=== PATIENT | male | born 1970 | race African-American/Black ===

== ENCOUNTER 2017-05-27 14:47 | Emergency (ER) | payer BC, OTHER ==
[~2017-05-27] VITALS: Ht 188 cm; Wt 113.5 kg
[~2017-05-27 14:47] MED LIST: AMLO10 PO; BISO10TA2 PO; CLON0.1T PO
[2017-05-27 14:49] VITALS: BP 157/99; PULSE 96; RESP 15; TEMP 98.2; O2SAT 98
--- NOTE | 2017-05-27 15:01 | PD ---
Physical Exam Date Seen by Provider: May 27, 2017 Time Seen by Provider: 15:00 Narrative 47 yo male here for evaluation of swelling to the legs for about a year. Went to see PCP. Told to get US. Has not been able to schedule it. Pain to both legs. 04/11. No other medical issues. History of "irregular HR" but no blood thinners. Vitals stable in triage. Awaiting bed placement. Data Data Last Documented VS Vital Signs Date Time Temp Pulse Resp B/P (MAP) Pulse Ox O2 Delivery O2 Flow Rate FiO2 05/27/17 14:49 98.2 96 15 157/99 (118) 98 MDM Medical Record Reviewed: Yes Supervised Visit with CALVIN: No Jose Bryan May 27, 2017 15:01
--- NOTE | 2017-05-27 15:59 | RADRPT ---
EXAM DATE/TIME: 05/27/2017 15:29 [facility] COMPARISON: No previous studies available for comparison. INDICATIONS : Bilateral leg swelling. MEDICAL HISTORY : Hypertension. Migraines. Diabetes. GI bleed. Bronchitis. Irregular heart beat. SURGICAL HISTORY : Hernia repair. Right leg fracture repair. ENCOUNTER: Initial ACUITY: >1 year PAIN SCORE: 3/10 LOCATION: Bilateral legs. TECHNIQUE: Venous ultrasound of the left and right leg was performed from the inguinal ligament to the proximal calf. Real-time, color Doppler and spectral tracing, compression and augmentation techniques were us ed. FINDINGS: RIGHT LEG: There is normal compressibility of the deep venous system from the inguinal region to the proximal ca lf. No echogenic clot is seen in the lumen of the common femoral, femoral, popliteal, and posterior tibial veins. There is a normal response of the venous system to proximal and distal augmentation an d respiration. LEFT LEG: There is normal compressibility of the deep venous system from the inguinal region to the proximal ca lf. No echogenic clot is seen in the lumen of the common femoral, femoral, popliteal, and posterior tibial veins. There is a normal response of the venous system to proximal and distal augmentation an d respiration. CONCLUSION: Normal examination. Jens Ernst MD on May 27, 2017 at 15:57 Board Certified Radiologist. This report was verified electronically.
--- NOTE | 2017-05-27 17:42 | PD ---
HPI . leg pain for 1 year Chief Complaint: Pain: Acute or Chronic Time Seen by Provider: 17:42 Travel History International Travel<30 days: No Contact w/Intl Traveler<30days: No Traveled to known affect area: No History of Present Illness HPI 47-year-old male here with complaints of leg pain for over a year. Patient says that he saw his primary care provider was told that he needed a sonogram, however never had that completed. He is here in the emergency department requesting sonogram. Patient was seen in triage and ultrasound was ordered. Results are negative for DVT. He denies any recent injury. He is pretty comfortable right now, but tells me that the pain can intensify. PFSH Past Medical History Hx Anticoagulant Therapy: No Cardiovascular Problems: Yes (IRREGULAR HEART BEAT) Chemotherapy: No Cerebrovascular Accident: No Diabetes: Yes (BORDERLINE ) Diminished Hearing: No Gastrointestinal Disorders: Yes (GI BLEED, RECTAL BLEED) Genitourinary: No Headaches: Yes Hypertension: Yes Musculoskeletal: No Neurologic: Yes Respiratory: No Migraines: Yes Past Surgical History Hysterectomy: No Other Surgery: Yes (hernia repair) Social History Alcohol Use: No (occ) Tobacco Use: Yes (/ ppd) Substance Use: No Allergies-Medications (Allergen,Severity, Reaction): Coded Allergies: lisinopril (Unverified Allergy, Severe, Anaphylaxis, 05/27/17) Reported Meds & Prescriptions Reported Meds & Active Scripts Active Reported Bisoprolol-Hydrochlorothiazide 10-6.25 Mg Tab 1 Tab PO DAILY Clonidine (Clonidine HCl) 0.1 Mg Tab 0.1 Mg PO BID Norvasc (Amlodipine Besylate) 10 Mg Tab 10 Mg PO DAILY Review of Systems General / Constitutional: No: Fever Eyes: No: Visual changes HENT: No: Headaches Cardiovascular: No: Chest Pain or Discomfort Respiratory: No: Shortness of Breath Gastrointestinal: No: Abdominal Pain Genitourinary: No: Dysuria Musculoskeletal: Positive: Pain (leg pain ) Skin: No Rash Neurologic: No: Weakness Psychiatric: No: Depression Endocrine: No: Polydipsia Hematologic/Lymphatic: No: Easy Bruising Physical Exam Narrative GENERAL: AAO x 3, no acute distress, Well-nourished, well-developed patient. SKIN: Warm and dry. No visible rashes or bruising. HEAD: Normocephalic and atraumatic. EYES: No scleral icterus. No injection or drainage. ENT: No nasal drainage noted. Mucous membranes pink. Airway patent. NECK: Supple, trachea midline. No JVD. CARDIOVASCULAR: Regular rate and rhythm without murmurs, gallops, or rubs. RESPIRATORY: Breath sounds equal bilaterally. No accessory muscle use. No rhonchi or rales. GASTROINTESTINAL: Abdomen soft, non-tender, nondistended. EXTREMITIES: No cyanosis or edema. Full range of motion bilateral lower extremities. Pedal pulses are intact. BACK: No obvious deformity. 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 Data Data Last Documented VS Vital Signs Date Time Temp Pulse Resp B/P (MAP) Pulse Ox O2 Delivery O2 Flow Rate FiO2 05/27/17 14:49 98.2 96 15 157/99 (118) 98 Orders Orders Us Leg Venous Doppler Bilat (05/27/17 ) [facility] Medical Decision Making Medical Screen Exam Complete: Yes Emergency Medical Condition: Yes Medical Record Reviewed: Yes Differential Diagnosis OA, RA, DVT, less likely fracture Narrative Course 47 yr old male here with chronic leg pain. US ordered in triage. Last Impressions Lower Extremity Ultrasound 05/27/17 0000 Signed Impressions: Service Date/Time: Saturday, May 27, 2017 15:29 - CONCLUSION: Normal examination. Jens Ernst MD Results are normal. I do not believe xrays would be helpful as I do not suspect an acute bony abnormality. I explained to patient there is no evidence of DVT. I think he needs to f/u with his PCP for further workup and testing. He could have some issues in his back causing his pain. He denies any bowel or bladder dysfunction and has no saddle anesthesia. I have discussed the results with the patient. Patient verbalized understanding of instructions, questions were answered, and thanked me for their care. I advised them if their condition worsens, please return to the nearest emergency room for further care. Diagnosis Primary Impression: Leg pain Qualified Codes: M79.604 - Pain in right leg; M79.605 - Pain in left leg Patient Instructions: General Instructions Additional Instructions: Try Tylenol and Motrin as needed for pain. Follow up with your primary care provider for further workup and recommendations. Disposition: 01 DISCHARGE HOME Condition: Stable Yue Bey May 27, 2017 17:42
[2017-05-27 18:27] VITALS: BP 171/82
[2017-06-06] MEDS ORDERED: VARE.5 PO (11:24)
[2017-06-06] MEDS ORDERED: IPRASOL INH (11:24)
[2017-06-06] MEDS ORDERED: VENTAER INH (11:24)
== END 2017-05-27 18:31 | disposition home or self-care (01) ==
LOC: NEPD 14:47
DX: M79.604 Pain in right leg (principal); M79.605 Pain in left leg; F17.200 Nicotine dependence, unspecified, uncomplicated
CPT/HCPCS: 93970; 99284

== ENCOUNTER 2017-06-03 13:44 | Emergency (ER) | payer OTHER ==
[2017-06-03 13:47] VITALS: BP 152/101; PULSE 88; RESP 15; TEMP 98.3; O2SAT 92
--- NOTE | 2017-06-03 14:09 | PD ---
Physical Exam Time Seen by Provider: 14:07 Narrative 47 year old male with history of COPD presents to the ED for evaluation of a pruritic rash on his face. Pt used dye to darken his hair and noticed itching last night. He woke up the rash today. Pt denies any sensation of oral swelling or difficulty breathing. Pt does have history of COPD and has chronic shortness of breath. Data Data Last Documented VS Vital Signs Date Time Temp Pulse Resp B/P (MAP) Pulse Ox O2 Delivery O2 Flow Rate FiO2 06/03/17 15:30 06/03/17 13:47 98.3 88 15 92 MDM Medical Record Reviewed: Yes Supervised Visit with CALVIN: No Scripts Prednisone (Prednisone) 20 Mg Tab 20 MG PO BID for 5 Days, #10 TAB 0 Refills Prov: Sydney Ortiz DO 06/03/17 Condition: Stable Kathrine Gonzales Jun 03, 2017 14:09
[2017-06-03] MEDS ORDERED: PRED20 PO (15:07)
--- NOTE | 2017-06-03 15:12 | PD ---
HPI Chief Complaint: Allergic/Adverse Reaction Time Seen by Provider: 15:06 Travel History International Travel<30 days: No Contact w/Intl Traveler<30days: No Traveled to known affect area: No History of Present Illness HPI 47-year-old male presents for evaluation of facial itching, irritation. He reports that 2 days ago he used dye on his stephenson. He reports that yesterday he developed irritation and itching and redness at the site of the stephenson. Symptoms are mild, aggravated by using dye. No alleviating factors. Has not tried using any [id number] medications to help with his pruritus. He has no other complaints at this time. PFSH Past Medical History Hx Anticoagulant Therapy: No Cardiovascular Problems: Yes (IRREGULAR HEART BEAT) Chemotherapy: No Cerebrovascular Accident: No Diabetes: Yes (BORDERLINE ) Diminished Hearing: No Gastrointestinal Disorders: Yes (GI BLEED, RECTAL BLEED) Genitourinary: No Headaches: Yes Hypertension: Yes Musculoskeletal: No Neurologic: Yes Respiratory: No Migraines: Yes Past Surgical History Hysterectomy: No Other Surgery: Yes (hernia repair) Social History Alcohol Use: Yes Tobacco Use: Yes Substance Use: No Allergies-Medications (Allergen,Severity, Reaction): Coded Allergies: lisinopril (Unverified Allergy, Severe, Anaphylaxis, 05/27/17) Reported Meds & Prescriptions Reported Meds & Active Scripts Active Prednisone 20 Mg Tab 20 Mg PO BID 5 Days Reported Bisoprolol-Hydrochlorothiazide 10-6.25 Mg Tab 1 Tab PO DAILY Clonidine (Clonidine HCl) 0.1 Mg Tab 0.1 Mg PO BID Norvasc (Amlodipine Besylate) 10 Mg Tab 10 Mg PO DAILY Review of Systems General / Constitutional: No: Fever Skin: Positive Rash, Positive Itching, Positive Dryness Physical Exam Narrative GENERAL: Well-developed well-nourished male in no acute distress SKIN: Warm and dry. Examination of the face reveals dry irritated reddened skin along the be her line with occasional vesicle formation. HEAD: Atraumatic. Normocephalic. EYES: Pupils equal and round. No scleral icterus. No injection or drainage. ENT: No nasal bleeding or discharge. Mucous membranes pink and moist. NECK: Trachea midline. No JVD. CARDIOVASCULAR: Regular rate and rhythm. No murmur appreciated. RESPIRATORY: No accessory muscle use. Clear to auscultation. Breath sounds equal bilaterally. Data Data Last Documented VS Vital Signs Date Time Temp Pulse Resp B/P (MAP) Pulse Ox O2 Delivery O2 Flow Rate FiO2 06/03/17 13:47 98.3 88 15 152/101 (118) 92 MDM Medical Decision Making Medical Screen Exam Complete: Yes Emergency Medical Condition: Yes Medical Record Reviewed: Yes Differential Diagnosis Irritant contact dermatitis, allergic contact dermatitis, folliculitis, erysipelas, cellulitis Narrative Course Examination and history are consistent with irritant contact dermatitis. The patient is being given a prescription for short course of prednisone, recommended [id number] Benadryl use for itching. He is stable for discharge. Diagnosis Primary Impression: Irritant contact dermatitis Qualified Codes: L24.3 - Irritant contact dermatitis due to cosmetics Additional Instructions: Medications prescribed. Use [id number] Benadryl for itching. Do not drive or drink alcohol when taking Benadryl. Avoid scratching at the face. Follow-up with primary care as needed and return for any emergent medical conditions. Med/Other Pt SpecificInfo: Prescription(s) given Scripts Prednisone (Prednisone) 20 Mg Tab 20 MG PO BID for 5 Days, #10 TAB 0 Refills Prov: Sydney Ortiz DO 06/03/17 Disposition: 01 DISCHARGE HOME Condition: Stable Shabbir Eubanks Jun 03, 2017 15:12
== END 2017-06-03 15:31 | disposition home or self-care (01) ==
LOC: NEPK 13:44
DX: L24.9 Irritant contact dermatitis, unspecified cause (principal); R73.03 Prediabetes; K92.2 Gastrointestinal hemorrhage, unspecified; K62.5 Hemorrhage of anus and rectum; I10 Essential (primary) hypertension; Z72.0 Tobacco use; Z79.899 Other long term (current) drug therapy
CPT/HCPCS: 99283

== ENCOUNTER 2017-06-06 11:00 | Inpatient (IN) | payer OTHER ==
[~2017-06-06] VITALS: Ht 188 cm; Wt 114.5 kg
[2017-06-06] VITALS (14 sets, daily range): BP systolic 102–136; BP diastolic 50–96; PULSE 74–94; RESP 15–18; TEMP 98.2–98.6; O2SAT 97–99
[~2017-06-06 11:00] MED LIST changes: +PRED20 PO
[2017-06-06] MEDS ORDERED: IPRASOL INH ×2 (11:24)
[2017-06-06] MEDS ORDERED: VENTAER INH ×2 (11:24)
[2017-06-06] MEDS ORDERED: VARE.5 PO ×2 (11:24)
[2017-06-06] MEDS ORDERED: ASPIRIN 81 MG CHEW TAB PO ONE (11:45)
[2017-06-06] MEDS ORDERED: SODIUM CHLORIDE 0.9% FLUSH 10 ML FLUSH IVF PRN (11:45)
[2017-06-06] MEDS ORDERED: APIXABAN 5 MG TABLET PO ONE (11:45)
--- NOTE | 2017-06-06 11:51 | PD ---
HPI Chief Complaint: Chest Pain Time Seen by Provider: 11:31 Travel History International Travel<30 days: No Contact w/Intl Traveler<30days: No Traveled to known affect area: No History of Present Illness HPI 39-year-old male presents to the emergency department for evaluation of midsternal chest pain that started this morning at 3 AM. Patient states the pain is midsternal, slightly to the left. He denies exacerbating or relieving factors. Patient denies history of similar chest pain. He did have a normal stress test done in [facility]. It was normal at that time. He states he was recently diagnosed with atrial fibrillation approximately 3-4 months ago by his primary care physician. He is on metoprolol, but is not on any anticoagulants. He states that his primary care physician wanted him to see cardiology before being started on anticoagulants. Patient denies any headaches. No fevers or chills. He does report mild cough. He also reports associated shortness of breath. No abdominal pain. No vomiting or diarrhea. No new leg edema. No history of CHF or renal disease. No history DVT/PE. No recent surgery or travel. She does have history of COPD as well. He states he quit smoking approximately 3 weeks ago. He was a smoker for approximately 17- 20 years prior to that. He also states he has quit drinking alcohol. He denies any illicit drug use. PFSH Past Medical History Hx Anticoagulant Therapy: No Cardiovascular Problems: Yes Chemotherapy: No COPD: Yes Cerebrovascular Accident: No Diminished Hearing: No Gastrointestinal Disorders: Yes (GI BLEED, RECTAL BLEED) Genitourinary: No Headaches: Yes Hypertension: Yes Musculoskeletal: No Neurologic: Yes Respiratory: No Migraines: Yes Past Surgical History Hysterectomy: No Other Surgery: Yes (hernia repair) Social History Alcohol Use: No Tobacco Use: No (CURRENTLY ON CHANTIX) Substance Use: No Allergies-Medications (Allergen,Severity, Reaction): Coded Allergies: lisinopril (Unverified Allergy, Severe, Anaphylaxis, 06/06/17) Uncoded Allergies: JUST FOR MEN (Allergy, Severe, Shortness of Breath, 06/06/17) Reported Meds & Prescriptions Reported Meds & Active Scripts Active Prednisone 20 Mg Tab 20 Mg PO BID 5 Days Reported Chantix (Varenicline) 0.5 Mg Tab 0.5 Mg PO DAILY Days 1-3 Duoneb (Ipratropium-Albuterol Neb) 0.5-2.5 Mg/3 Ml Neb 1 Nebule INH DAILY Ventolin Hfa 18 GM Inh (Albuterol Sulfate) 90 Mcg/Act Aer 2 Puff INH Q4-6H PRN Bisoprolol-Hydrochlorothiazide 10-6.25 Mg Tab 1 Tab PO DAILY Clonidine (Clonidine HCl) 0.1 Mg Tab 0.1 Mg PO BID Norvasc (Amlodipine Besylate) 10 Mg Tab 10 Mg PO DAILY Review of Systems Except as stated in HPI: all other systems reviewed are Neg Physical Exam Narrative GENERAL: Well-nourished, well-developed male patient, afebrile. SKIN: Focused skin assessment warm/dry. HEAD: Normocephalic. Atraumatic. ENT: Mucosa pink and moist. No erythema or exudates. No uvular edema. No uvular , palatal, or tonsillar deviation. Airway patent. Nasal turbinates appear normal without nasal blood, purulent drainage or septal hematoma. Bilateral tympanic membranes are clear without erythema or perforation. EYES: No scleral icterus. No injection or drainage. NECK: Supple, trachea midline. No JVD or lymphadenopathy. CARDIOVASCULAR: Regular rate and rhythm without murmurs, gallops, or rubs. Bilateral radial and pedal pulses are 2+. RESPIRATORY: Breath sounds equal bilaterally. No accessory muscle use. Lungs sounds are clear to auscultation GASTROINTESTINAL: Abdomen soft, non-tender, nondistended. MUSCULOSKELETAL: No cyanosis, or edema. Midsternal chest pain is reproducible with palpation. BACK: Nontender without obvious deformity. No CVA tenderness. Data Data Last Documented VS Vital Signs Date Time Temp Pulse Resp B/P (MAP) Pulse Ox O2 Delivery O2 Flow Rate FiO2 06/06/17 11:49 98 Room Air 06/06/17 11:49 06/06/17 11:34 83 18 06/06/17 11:01 98.2 Orders Orders Basic Metabolic Panel (Bmp) (06/06/17 11:38) Ckmb (Isoenzyme) Profile (06/06/17 11:38) Complete Blood Count With Diff (06/06/17 11:38) Magnesium (Mg) (06/06/17 11:38) Prothrombin Time / Inr (Pt) (06/06/17 11:38) Act Partial Throm Time (Ptt) (06/06/17 11:38) Troponin I (06/06/17 11:38) Chest, Single Ap (06/06/17 11:38) Ecg Monitoring (06/06/17 11:38) Bilateral Bp Monitoring (06/06/17 11:38) Iv Access Insert/Monitor (06/06/17 11:38) Oximetry (06/06/17 11:38) Oxygen Administration (06/06/17 11:38) Aspirin Chew (Aspirin Chew) (06/06/17 11:45) Sodium Chloride 0.9% Flush (Ns Flush) (06/06/17 11:45) Apixaban (Eliquis) (06/06/17 11:45) Electrocardiogram (06/06/17 11:18) CKMB (06/06/17 11:30) CKMB% (06/06/17 11:30) Admit Order (Ed Use Only) (06/06/17 12:38) Labs Laboratory Tests Test 06/06/17 11:30 White Blood Count 5.2 TH/MM3 Red Blood Count 5.22 MIL/MM3 Hemoglobin 15.7 GM/DL Hematocrit 47.0 % Mean Corpuscular Volume 90.0 FL Mean Corpuscular Hemoglobin 30.1 PG Mean Corpuscular Hemoglobin Concent 33.4 % Red Cell Distribution Width 14.8 % Platelet Count 167 TH/MM3 Mean Platelet Volume 7.5 FL Neutrophils (%) (Auto) 59.1 % Lymphocytes (%) (Auto) 29.2 % Monocytes (%) (Auto) 11.3 % Eosinophils (%) (Auto) 0.2 % Basophils (%) (Auto) 0.2 % Neutrophils # (Auto) 3.1 TH/MM3 Lymphocytes # (Auto) 1.5 TH/MM3 Monocytes # (Auto) 0.6 TH/MM3 Eosinophils # (Auto) 0.0 TH/MM3 Basophils # (Auto) 0.0 TH/MM3 CBC Comment DIFF FINAL Differential Comment Prothrombin Time 11.0 SEC Prothromb Time International Ratio 1.0 RATIO Activated Partial Thromboplast Time 25.4 SEC Blood Urea Nitrogen 18 MG/DL Creatinine 1.05 MG/DL Random Glucose 118 MG/DL Calcium Level 9.1 MG/DL Magnesium Level 1.9 MG/DL Sodium Level 135 MEQ/L Potassium Level 3.3 MEQ/L Chloride Level 97 MEQ/L Carbon Dioxide Level 30.6 MEQ/L Anion Gap 7 MEQ/L Estimat Glomerular Filtration Rate 91 ML/MIN Total Creatine Kinase 473 U/L Troponin I 0.97 NG/ML [facility] Medical Decision Making Medical Screen Exam Complete: Yes Emergency Medical Condition: Yes Medical Record Reviewed: Yes Interpretation(s) Last Impressions Chest X-Ray 06/06/17 1138 Signed Impressions: Service Date/Time: June 11:58 - CONCLUSION: The lungs are clear. Blake Rangel MD Differential Diagnosis ACS versus chest wall pain versus pneumonia versus pneumothorax versus muscle strain versus new onset A. fib Narrative Course 47-year-old male presents to the emergency department for evaluation of chest pain that started at 3 AM this morning. He had normal stress test in 2014. He was recently diagnosed with atrial fibrillation approximately 3-4 months ago by his primary care physician. He is not currently on anticoagulants. EKG shows atrial fibrillation, heart rate 87, no acute ST changes. CBC, BMP, CK, troponin , magnesium, PTT, PT/INR, chest x-ray ordered and pending. Patient took 1 baby aspirin this morning. He is given a second additional aspirin. I discussed case with my attending physician, Dr. Hensley, who recommends starting patient on Eliquis due to patient being in atrial fibrillation and not on anticoagulation. Patient is given aliquots 5 mg by mouth. CBC is unremarkable. BMP shows hypokalemia at 3.3, glucose 118. CK is 473. Troponin is 0.97. Magnesium is 1.9. Coags are unremarkable. Chest x-ray shows lungs are clear. I discussed elevated troponin and results with my attending physician, Dr. Hensley, who recommends admission. [facility] is paged for admission. Dr. Bazan accepted admission. Diagnosis Primary Impression: Chest pain Qualified Codes: R07.9 - Chest pain, unspecified Additional Impressions: New onset atrial fibrillation Elevated troponin Admitting Information Admitting Physician Requests: Admit Michelle Lundberg Jun 06, 2017 11:51
[2017-06-06 12:03] LABS: AUTOMATED NEUTROPHIL # 3.1 TH/MM3 (1.8-7.7); BASOPHIL % 0.2 % (0.0-2.0); EOSINOPHIL % 0.2 % (0.0-4.0); HEMO FLAGS DIFF FINAL; LYMPH % 29.2 % (9.0-44.0); LYMPHOCYTE # 1.5 TH/MM3 (1.0-4.8); MEAN CORPUSCULAR HEMOGLOBIN 30.1 PG (27.0-34.0); MEAN CORPUSCULAR HGB CONC 33.4 % (32.0-36.0); MONO % 11.3 % (0.0-8.0); NEUT % 59.1 % (16.0-70.0); PLATELET COUNT 167 TH/MM3 (150-450); RED BLOOD COUNT 5.22 MIL/MM3 (4.50-5.90); RED CELL DISTRIBUTION WIDTH 14.8 % (11.6-17.2); WHITE BLOOD COUNT 5.2 TH/MM3 (4.0-11.0)
[2017-06-06 12:16] LABS: BICARBONATE 30.6 MEQ/L (21.0-32.0); MAGNESIUM 1.9 MG/DL (1.5-2.5); POTASSIUM 3.3 MEQ/L (3.5-5.1)
[2017-06-06 12:17] LABS: APTT (PATIENT) 25.4 SEC (24.3-30.1)
--- NOTE | 2017-06-06 12:21 | RADRPT ---
EXAM DATE/TIME: 06/06/2017 11:58 [facility] COMPARISON: CHEST SINGLE AP, May 21, 2016, 9:21. INDICATIONS : Chest pain. MEDICAL HISTORY : Chronic obstructive pulmonary disease. SURGICAL HISTORY : None. ENCOUNTER: Initial ACUITY: 1 day PAIN SCORE: 7/10 LOCATION: Bilateral chest FINDINGS: A single view of the chest demonstrates the lungs to be symmetrically aerated without evidence of mas s, infiltrate or effusion. The cardiomediastinal contours are unremarkable. Osseous structures are intact. CONCLUSION: The lungs are clear. Blake Rangel MD on June 06, 2017 at 12:19 Board Certified Radiologist. This report was verified electronically.
[2017-06-06 12:41] LABS: CKMB 22.5 NG/ML (0.5-3.6)
[2017-06-06] MEDS ORDERED: SODIUM CHLORIDE 0.9% FLUSH 10 ML FLUSH IV FLUSH PRN (12:45)
[2017-06-06] MEDS ORDERED: NITROGLYCERIN 0.4 MG SL 25 TABS/BTL SL PRN (12:45)
[2017-06-06] MEDS: SODIUM CHLOR 0.9% 1000 ML INJ 1,000 ML IV SCH (13:22)
--- NOTE | 2017-06-06 14:37 | HHI.HP ---
HPI Service [facility] Hospitalists Primary Care Physician Dr. Malena Hartman Admission Diagnosis chest pain, atrial fibrillation, elevated troponin Chief Complaint: Chest pain Travel History International Travel<30 Days: No Contact w/Intl Traveler <30 Da: No Traveled to Known Affected Are: No History of Present Illness Mr. Hoang is a 47 y/o male with HTN, COPD, newly diagnosed A. fib, hx of tobacco use, hx of alcohol use. He presented to the ED at [facility] on 06/06/17 for evaluation of midsternal chest pain that started this morning at 3 AM, located in midsternal chest, slightly to the left, described as a constant gripping pain. He denies exacerbating or relieving factors. Denies any history of similar chest pain. He states he was recently diagnosed with atrial fibrillation approximately 3-4 months ago by his primary care physician. He is on Bisoprolol, but is not on any anticoagulants. He states that his primary care physician wanted him to see cardiology before being started on anticoagulants. Pt reports that for the last month he has had more BROOKS. Patient denies any palpitations, dizziness, vomiting, abdominal pain or LE edema. No history of CHF, renal disease or DVT/PE. No recent surgery or travel. He states he quit smoking approximately 3 weeks ago. He was a smoker for approximately 17-20 years prior to that. He also states he has quit drinking alcohol. He denies any illicit drug use. Pt had a previous Lexiscan in 2014 which was negative. Last 2D echo (08/28/15) noted mild LVH, EF 55-60%, trace aortic regurg, and a possible small pericardial effusion. His first set of cardiac enzymes in the ED noted an elevation in Troponin to 0.97, Total CK 473, CKMB 22.5 (4.8%). Pt is being admitted for further cardiac workup. Review of Systems Constitutional: DENIES: Diaphoretic episodes, Fever, Chills, Dizziness Eyes: DENIES: Vision loss Ears, nose, mouth, throat: DENIES: Hearing loss Respiratory: DENIES: Cough, Shortness of breath Cardiovascular: COMPLAINS OF: Chest pain, DENIES: Palpitations, Dyspnea on Exertion, Lower Extremity Edema Gastrointestinal: DENIES: Abdominal pain, Constipation, Diarrhea, Nausea Musculoskeletal: DENIES: Back pain, Neck pain Integumentary: DENIES: Rash Neurologic: DENIES: Headache Psychiatric: DENIES: Confusion Past Family Social History Past Medical History HTN COPD Tobacco use Alcohol use Past Surgical History Hernia repair RLE ORIF Reported Medications Prednisone 20 Mg Tab 20 Mg PO BID 5 Days (started on 06/03 for skin irritation) Chantix 0.5 Mg PO DAILY Duoneb (Ipratropium-Albuterol Neb) 0.5-2.5 Mg/3 Ml Neb 1 Nebule INH DAILY Ventolin Hfa 18 GM Inh 90 Mcg/Act Aer 2 Puff INH Q4-6H PRN Bisoprolol-Hydrochlorothiazide 10-6.25 Mg PO DAILY Clonidine 0.1 Mg PO BID Norvasc 10 Mg PO DAILY Allergies: Coded Allergies: lisinopril (Unverified Allergy, Severe, Anaphylaxis, 06/06/17) Uncoded Allergies: JUST FOR MEN (Allergy, Severe, Shortness of Breath, 06/06/17) Family History Noncontributory Social History Currently denies any tobacco or alcohol use Quit smoking about 3 weeks ago, prior to that smoked on average about 1ppd x 20 years Hx of regular alcohol use Physical Exam Vital Signs Vital Signs Date Time Temp Pulse Resp B/P (MAP) Pulse Ox O2 Delivery O2 Flow Rate FiO2 06/06/17 13:22 87 18 102/72 (82) 99 Room Air 06/06/17 11:49 98 Room Air 06/06/17 11:49 98 Room Air 06/06/17 11:34 83 18 109/86 (94) 99 Room Air 06/06/17 11:20 20 Room Air 06/06/17 11:01 98.2 87 15 136/91 (106) 99 Physical Exam GENERAL: This is a well-nourished, well-developed patient, in no apparent distress. HEENT: Atraumatic. Normocephalic. No temporal or scalp tenderness. No scleral icterus. Airway patent. NECK: Trachea midline, supple, nontender. CARDIO: Irregularly irregular. RESP: CTA bilaterally. No wheezes, rales, or rhonchi. ABD: +BS, soft, non-tender, nondistended. EXT: Extremities without clubbing, cyanosis, or edema. NEURO: Awake and alert. Motor and sensory grossly within normal limits. Normal speech. Laboratory Laboratory Tests Test 06/06/17 11:30 White Blood Count 5.2 Red Blood Count 5.22 Hemoglobin 15.7 Hematocrit 47.0 Mean Corpuscular Volume 90.0 Mean Corpuscular Hemoglobin 30.1 Mean Corpuscular Hemoglobin Concent 33.4 Red Cell Distribution Width 14.8 Platelet Count 167 Mean Platelet Volume 7.5 Neutrophils (%) (Auto) 59.1 Lymphocytes (%) (Auto) 29.2 Monocytes (%) (Auto) 11.3 Eosinophils (%) (Auto) 0.2 Basophils (%) (Auto) 0.2 Neutrophils # (Auto) 3.1 Lymphocytes # (Auto) 1.5 Monocytes # (Auto) 0.6 Eosinophils # (Auto) 0.0 Basophils # (Auto) 0.0 CBC Comment DIFF FINAL Differential Comment Prothrombin Time 11.0 Prothromb Time International Ratio 1.0 Activated Partial Thromboplast Time 25.4 Blood Urea Nitrogen 18 Creatinine 1.05 Random Glucose 118 Calcium Level 9.1 Magnesium Level 1.9 Sodium Level 135 Potassium Level 3.3 Chloride Level 97 Carbon Dioxide Level 30.6 Anion Gap 7 Estimat Glomerular Filtration Rate 91 Total Creatine Kinase 473 Creatine Kinase MB 22.5 Creatine Kinase MB % 4.8 Troponin I 0.97 Result Diagram: 06/06/17 1130 06/06/17 1130 Imaging Last Impressions Chest X-Ray 06/06/17 1138 Signed Impressions: Service Date/Time: June 11:58 - CONCLUSION: The lungs are clear. Blake Rangel MD Septic Shock Reassessment Heart: Regular rate and rhythm Lungs: Clear Skin: Warm Caprini VTE Risk Assessment Caprini VTE Risk Assessment: Mod/High Risk (score >= 2) Caprini Risk Assessment Model Point Value = 1 Point Value = 2 Point Value = 3 Point Value = 5 Age 41-60 Minor surgery BMI > 25 kg/m2 Swollen legs Varicose veins or History of unexplained or recurrent spontaneous Oral contraceptives or hormone replacement Sepsis (< 1 month) Serious lung disease, including pneumonia (< 1 month) Abnormal pulmonary function Acute myocardial infarction Congestive heart failure (< 1 month) History of inflammatory bowel disease Medical patient at bed rest Age 61-74 Arthroscopic surgery Major open surgery (> 45 min) Laparoscopic surgery (> 45 min) Malignancy Confined to bed (> 72 hours) Immobilizing plaster cast Central venous access Age >= 75 History of VTE Family history of VTE Factor V Leiden Prothrombin [id number] Lupus anticoagulant Anticardiolipin antibodies Elevated serum homocysteine Heparin-induced thrombocytopenia Other congenital or acquired thrombophilia Stroke (< 1 month) Elective arthroplasty Hip, pelvis, or leg fracture Acute spinal cord injury (< 1 month) Prophylaxis Regimen Total Risk Factor Score Risk Level Prophylaxis Regimen 0-1 Low Early ambulation 2 Moderate Order ONE of the following: *Sequential Compression Device (SCD) *Heparin 5000 units SQ BID 3-4 Higher Order ONE of the following medications: *Heparin 5000 units SQ TID *Enoxaparin/Lovenox 40 mg SQ daily (WT < 150 kg, CrCl > 30 mL/min) *Enoxaparin/Lovenox 30 mg SQ daily (WT < 150 kg, CrCl > 10-29 mL/min) *Enoxaparin/Lovenox 30 mg SQ BID (WT < 150 kg, CrCl > 30 mL/min) AND/OR *Sequential Compression Device (SCD) 5 or more Highest Order ONE of the following medications: *Heparin 5000 units SQ TID (Preferred with Epidurals) *Enoxaparin/Lovenox 40 mg SQ daily (WT < 150 kg, CrCl > 30 mL/min) *Enoxaparin/Lovenox 30 mg SQ daily (WT < 150 kg, CrCl > 10-29 mL/min) *Enoxaparin/Lovenox 30 mg SQ BID (WT < 150 kg, CrCl > 30 mL/min) AND *Sequential Compression Device (SCD) Assessment and Plan Problem List: (1) Chest pain ICD Codes: R07.9 - Chest pain, unspecified Status: Acute Plan: - Pt is a 47 y/o male with HTN, COPD, recently diagnosed A. fib, and hx of tobacco use - He presented to the ED with complaints of new onset chest pain that began around 3AM this morning. - First set of cardiac enzymes in the ED noted an elevation in Troponin to 0.97 , Total CK 473, CKMB 22.5 (4.8%). - EKG in the ED noted atrial fibrillation, interventricular conduction delay and prolonged QT interval. - Serial CE and EKGs - Cardiology has been consulted and pt is planned for LHC - Keep pt NPO, check with Cardiology for timing of LHC if pt is able to eat today - 2D echo is ordered - Nitro paste - BB as BP allows - Monitor vitals closely - cable wirer - Pt was given ASA and a dose of Eliquis in the ED - IVF - Supportive care (2) Elevated troponin ICD Codes: R74.8 - Abnormal levels of other serum enzymes Status: Acute Plan: - See above. (3) Atrial fibrillation ICD Codes: I48.91 - Unspecified atrial fibrillation Plan: - BB as BP allows - Telemetry (4) HTN (hypertension) ICD Codes: I10 - Hypertension Status: Chronic (5) Tobacco use ICD Codes: Z72.0 - Tobacco use Status: Chronic Plan: - Pt reportedly quit smoking 3 weeks ago and is on Chantix Assessment and Plan Patient examined. Assessment and plan formulated with Brittani Reese PA-C. I agree with the above. nstemi. afib recently dx not on anticoagulation. elevated ce's. discussed with dr Martinez who is coming to see pt. just gave pt sl ntg and pain improving. will place ntg paste. bb added. plan for c. asa given. bp meds as tolerated. Physician Certification 2 Midnight Certification Type: Admission for Inpatient Services Order for Inpatient Services The services are ordered in accordance with Medicare regulations or non- Medicare payer requirements, as applicable. In the case of services not specified as inpatient-only, they are appropriately provided as inpatient services in accordance with the 2-midnight benchmark. Estimated LOS (days): 3 3 days is the estimated time the patient will need to remain in the hospital, assuming treatment plan goals are met and no additional complications. Post-Hospital Plan: Not yet determined Problem Qualifiers (1) Chest pain: Qualified Codes: R07.9 - Chest pain, unspecified (2) Atrial fibrillation: Qualified Codes: I48.2 - Chronic atrial fibrillation Brittani Reese Jun 06, 2017 14:37 Jet Bazan MD Jun 06, 2017 15:56
--- NOTE | 2017-06-06 14:37 | EKG ---
Date Performed: 06/06/2017 Time Performed: 11:18:51 PTAGE: 47 years EKG: Atrial fibrillation MODERATE INTRAVENTRICULAR CONDUCTION DELAY NONSPECIFIC T-WAVE ABNORMALI TY PROLONGED QT INTERVAL ABNORMAL ECG PREVIOUS TRACING : 01/03/2016 15.10 Since prior tracing, atrial fibrillation has replaced Sinus rhythm with PACs. DOCTOR: Sav Orozco Interpretating Date/Time 06/06/2017 14:35:22
[2017-06-06] MEDS ORDERED: ALBUTEROL SULFATE 90 MCG/ACT HFA 8 GM INHALER INH PRN (15:15)
[2017-06-06] MEDS ORDERED: ALPRAZolam 0.25 MG TAB PO PRN (15:15)
[2017-06-06] MEDS ORDERED: MORPHINE SULFATE 4 MG/ML INJ IV PUSH PRN (15:15)
[2017-06-06] MEDS ORDERED: ACETAMINOPHEN 500 MG CPLT PO PRN (15:15)
[2017-06-06] MEDS ORDERED: ONDANSETRON HCL 4 MG/2 ML VIAL IV PRN (15:15)
[2017-06-06] MEDS ORDERED: ACETAMINOPHEN/HYDROcodone 325 MG/7.5 MG TAB PO PRN (15:15)
--- NOTE | 2017-06-06 15:17 | ECHRPT ---
Indication: cp CONCLUSIONS Normal left ventricular size. Mild concentric left ventricular hypertrophy. The left ventricular systolic function is low normal with an estimated ejection fraction in the rang e of 50- 55%. [id number] mitral valve regurgitation. There is mild tricuspid valve regurgitation. The estimated pulmonary arterial pressure is 29.9 mmHg. BP: / HR: Rhythm: MEASUREMENTS (Male / Female) Normal Values Technical Quality:Good 2D ECHO LV Diastolic Diameter PLAX 5.2 cm 4.2 - 5.9 / 3.9 - 5.3 cm LV Systolic Diameter PLAX 4.2 cm IVS Diastolic Thickness 1.7 cm 0.6 - 1.0 / 0.6 - 0.9 cm LVPW Diastolic Thickness 1.4 cm 0.6 - 1.0 / 0.6 - 0.9 cm LV Relative Wall Thickness 0.6 RV Internal Dim ED PLAX 3.3 cm M-MODE Aortic Root Diameter MM 3.9 cm LA Systolic Diameter MM 3.5 cm LA Ao Ratio MM 0.9 AV Cusp Separation MM 2.3 cm DOPPLER LV E' Lateral Velocity 7.1 cm/s LV E' Septal Velocity 7.0 cm/s TR Peak Velocity 223.0 cm/s TR Peak Gradient 19.9 mmHg Right Atrial Pressure 10.0 mmHg Pulmonary Artery Systolic Pressu 29.9 mmHg Right Ventricular Systolic Press 29.9 mmHg FINDINGS LEFT VENTRICLE Normal left ventricular size. Mild concentric left ventricular hypertrophy. The left ventricular systolic function is low normal with an estimated ejection fraction in the rang e of 50- 55%. RIGHT VENTRICLE Normal right ventricular size and systolic function. LEFT ATRIUM The left atrial size is normal. RIGHT ATRIUM The right atrial size is normal. ATRIAL SEPTUM Normal atrial septal thickness without atrial level shunting by limited color doppler interrogation. AORTA The aortic root and proximal ascending aorta are normal in size on limited imaging. MITRAL VALVE Structurally normal mitral valve. [id number] mitral valve regurgitation. AORTIC VALVE Trileaflet aortic valve. TRICUSPID VALVE Structurally normal tricuspid valve. There is mild tricuspid valve regurgitation. The estimated pulmonary arterial pressure is 29.9 mmHg. PULMONARY VALVE No pulmonary valve regurgitation or stenosis. VESSELS The inferior vena cava is normal in size. PERICARDIUM No pericardial effusion. Vladimir Martinez MD, FACC (Electronically Signed) Final Date:06 June 2017 15:16
[2017-06-06 15:55] LABS: CKMB 37.5 NG/ML (0.5-3.6)
[2017-06-06] MEDS ORDERED: NITROGLYCERIN 2% OINT 1 GM PACKET TOP SCH ×2 (16:00→18:00)
[2017-06-06] MEDS ORDERED: POTASSIUM CHLORIDE 20 MEQ CONTROLLED RELEASE TAB PO ONE (16:00)
[2017-06-06] MEDS ORDERED: [UNRECOGNIZED DRUG - OTHER] IV ONE (17:00)
--- NOTE | 2017-06-06 17:54 | MB ---
cc: DOMINICK KRISHNAMURTHY MD DATE OF CONSULTATION 06/06/17 REASON FOR CONSULTATION [id number] MO. HISTORY OF PRESENT ILLNESS A 47-year-old gentleman with history of hypertension, COPD, newly diagnosed atrial fibrillation, chronic tobacco use and alcohol use. He presented today with new onset substernal chest pain that began around three in the morning. He describes it as a mid sternal tightness. It is gripping. It radiates towards his back and left arm. No associated nausea, mild diaphoresis. In the emergency department, initial troponin was positive. His last echocardiogram showed no significant valvular heart disease. He is still having some mild chest discomfort. We are consulted for further recommendations. He has never had a formal history of prior heart disease and no prior evaluation from an ischemic standpoint. PAST MEDICAL HISTORY 1. Hypertension, 2. COPD, 3. Prior alcohol use. MEDICATION Reported, 1. Prednisone. 2. Chantix. 3. DuoNeb. 4. Ventolin. 5. Bisoprolol 6. Clonidine 7. Norvasc. ALLERGIES LISINOPRIL FAMILY HISTORY Denies any family history of early coronary disease or sudden cardiac . SOCIAL HISTORY Quit smoking three weeks ago. Does report regular alcohol use, was a tobacco user for 20 years of a pack a day. REVIEW OF SYSTEMS A 12-point review of systems was performed, negative, unless otherwise noted is history of present illness. PHYSICAL EXAMINATION VITAL SIGNS: Normal. Pulse rate 91, blood pressure 114/50 mmHg. GENERAL: Alert and oriented x3 in no distress. HEENT: Pupils are reactive to light and accommodation. Extraocular movements are intact. No elevation in jugular venous distension. No thyromegaly or lymphadenopathy. No carotid bruits. LUNGS: Clear to auscultation bilaterally. CARDIAC: Regular rate and rhythm without murmurs, rubs or gallops. ABDOMEN: Nontender, nondistended. Good bowel sounds. No hepatosplenomegaly. EXTREMITIES: No clubbing, cyanosis or edema. Good peripheral pulses. NEUROLOGIC: Cranial nerves intact. Motor sensory grossly intact. LABORATORY DATA WBC 5.2, hemoglobin 15.7, platelet count 167. INR is one, BUN is 18, creatinine is 1.05, troponin is from 0.97 up to 2.38. CARDIOLOGY STUDIES Electrocardiogram - Atrial fibrillation, some nonspecific T-wave inversions and flattening in the anterolateral precordial leads, also late progression. ASSESSMENT 1. [id number] MO 2. Hypertension 3. COPD. PLAN The patient will be initiated on a heparin drip. He just had nitro paste applied. Electrocardiogram does not look terribly concerning. He did get a dose of Eliquis in the emergency department for his atrial fibrillation, so I would like to try to avoid any invasive strategy right now. Hopefully, we can try to get him chest pain free. With his positive troponins, if he is still having ongoing chest pain symptoms, then we will be forced to proceed with an invasive strategy today. Otherwise, we will make him n.p.o. after midnight in anticipation of possible heart cath tomorrow morning. MD AZAEL Sterling/ /4:49 PM /5:38 PM
[2017-06-06] MEDS ORDERED: NITROGLYCERIN/DEXTROSE 5% 250 ML for chest pain IV PRN (18:00)
[2017-06-06 18:41] LABS: HEMATOCRIT 43.1 % (39.0-51.0); MEAN CELL VOLUME 89.4 FL (80.0-100.0); MEAN CORPUSCULAR HEMOGLOBIN 29.9 PG (27.0-34.0); MEAN CORPUSCULAR HGB CONC 33.4 % (32.0-36.0); PLATELET COUNT 154 TH/MM3 (150-450); RED BLOOD COUNT 4.82 MIL/MM3 (4.50-5.90); RED CELL DISTRIBUTION WIDTH 14.5 % (11.6-17.2); REVIEW FLAG FINAL; WHITE BLOOD COUNT 6.2 TH/MM3 (4.0-11.0)
[2017-06-06 18:55] LABS: APTT (PATIENT) 28.5 SEC (24.3-30.1); PROTHROMBIN TIME - PATIENT 11.4 SEC (9.8-11.6)
[2017-06-06 19:20] LABS: CKMB 57.9 NG/ML (0.5-3.6)
[2017-06-06] MEDS: METOPROLOL TARTRATE 25 MG TAB PO SCH (20:51)
[2017-06-06] MEDS: SODIUM CHLORIDE 0.9% FLUSH 10 ML FLUSH IV FLUSH SCH (20:51)
[2017-06-06] MEDS ORDERED: HEPARIN SODIUM - IV 10,000 UNITS/10 ML VIAL IV PRN ×2 (23:00)
[2017-06-07] VITALS (22 sets, daily range): BP systolic 111–124; BP diastolic 74–99; PULSE 52–113; RESP 14–20; TEMP 97.3–98.4; O2SAT 96–97
[2017-06-07] MEDS: SODIUM CHLOR 0.9% 1000 ML INJ 1,000 ML IV SCH ×3 (00:18→18:25)
[2017-06-07 01:29] LABS: APTT (PATIENT) 70.3 SEC (24.3-30.1)
[2017-06-07 06:49] LABS: APTT (PATIENT) 40.1 SEC (24.3-30.1)
--- NOTE | 2017-06-07 08:31 | PD.CARD.PN ---
Subjective Subjective Remarks no further CP Objective Medications Active Medications Acetaminophen (Tylenol) 500 mg Q4H PRN PO; Start 06/06/17 at 15:15 Acetaminophen/ Hydrocodone Bitart (Ceres 7.5-325 Mg) 1 tab Q4H PRN PO; Start 06/06/17 at 15:15 Albuterol Sulfate (Proair Hfa Inh) 2 puff Q4H PRN INH; Start 06/06/17 at 15:15 Albuterol/ Ipratropium (Duoneb Neb) 1 ampule DAILY NEB INH; Start 06/07/17 at 08:00 Alprazolam (Xanax) 0.25 mg TID PRN PO; Start 06/06/17 at 15:15 Apixaban (Eliquis) 5 mg ONCE ONCE PO Last administered on 06/06/17 11:46; Admin Dose 5 MG; Start 06/06/17 at 11:45; Stop 06/06/17 at 11:46; Status DC Aspirin (Aspirin Chew) 81 mg ONCE ONCE PO Last administered on 06/06/17 11:46 ; Admin Dose 81 MG; Start 06/06/17 at 11:45; Stop 06/06/17 at 11:46; Status DC Aspirin (Aspirin) 325 mg DAILY PO; Start 06/07/17 at 09:00 Heparin Sodium (Porcine) (Heparin Inj) 2,500 units UNSCH PRN IV; Start at 23:00 Heparin Sodium (Porcine) (Heparin Inj) 5,000 units UNSCH PRN IV; Start at 23:00 Heparin Sodium/ Dextrose 250 ml @ 10 mls/hr TITRATE ONCE IV Last administered on 06/06/17 18:00; Admin Dose 10 MLS/HR; Start 06/06/17 at 17:00; Stop at 17:59 Influenza Virus Vaccine (Flu (Quadrivalent) Vaccine Inj) 0.5 ml ONCE ONCE IM; Start 06/07/17 at 10:00; Stop 06/07/17 at 10:01 Metoprolol Tartrate (Lopressor) 25 mg Q12HR PO Last administered on 06/06/17 20 :51; Admin Dose 25 MG; Start 06/06/17 at 21:00 Morphine Sulfate (Morphine Inj) 2 mg Q5M PRN IV PUSH Last administered on 18:26; Admin Dose 2 MG; Start 06/06/17 at 15:15 Nitroglycerin (Nitroglycerin 2% Oint) 1 inch Q6H TOP Last administered on 16:20; Admin Dose 1 INCH; Start 06/06/17 at 16:00; Stop 06/06/17 at 17:46; Status DC Nitroglycerin (Nitroglycerin 2% Oint) 1 inch Q6HR TOP; Start 06/06/17 at 18:00; Stop 06/06/17 at 18:00; Status DC Nitroglycerin (Nitrostat Sl) 0.4 mg Q5M PRN SL Last administered on 06/06/17 15:04; Admin Dose 0.4 MG; Start 06/06/17 at 12:45 Nitroglycerin/ Dextrose 250 ml @ 1.5 mls/hr TITRATE PRN IV Last administered on 06/06/17 18:40; Admin Dose 1.5 MLS/HR; Start 06/06/17 at 18:00 Ondansetron HCl (Zofran Inj) 4 mg Q6H PRN IV; Start 06/06/17 at 15:15 Pantoprazole Sodium (Protonix) 40 mg DAILY PO; Start 06/07/17 at 09:00 Pneumococcal Polyvalent Vaccine (Pneumovax-23 Inj) 25 mcg ONCE ONCE IM; Start 06/07/17 at 10:00; Stop 06/07/17 at 10:01 Potassium Chloride (KCl) 40 meq ONCE ONCE PO Last administered on 06/06/17 16: 20; Admin Dose 40 MEQ; Start 06/06/17 at 16:00; Stop 06/06/17 at 16:01; Status DC Sodium Chloride 1,000 ml @ 100 mls/hr Q10H IV Last administered on 06/07/17 00 :18; Admin Dose 100 MLS/HR; Start 06/06/17 at 12:42 Sodium Chloride (NS Flush) 2 ml BID IV FLUSH; Start 06/06/17 at 21:00 Sodium Chloride (NS Flush) 2 ml UNSCH PRN IV FLUSH; Start 06/06/17 at 12:45 Sodium Chloride (NS Flush) 2 ml UNSCH PRN IVF; Start 06/06/17 at 11:45; Stop 06/06/17 at 12:51; Status DC Vital Signs / I&O Vital Signs Date Time Temp Pulse Resp B/P (MAP) Pulse Ox O2 Delivery O2 Flow Rate FiO2 06/07/17 08:00 77 06/07/17 07:00 97.4 80 14 114/88 (97) 97 06/07/17 07:00 74 06/07/17 06:00 68 06/07/17 05:00 78 06/07/17 04:00 80 06/07/17 03:30 98.4 71 16 122/84 (97) 97 06/07/17 03:00 81 06/07/17 02:00 74 06/07/17 01:00 79 06/07/17 00:00 74 06/06/17 23:00 74 06/06/17 23:00 98.2 78 16 113/77 (89) 98 06/06/17 22:00 84 06/06/17 21:00 94 06/06/17 20:00 85 06/06/17 20:00 98.6 85 16 127/96 (106) 99 06/06/17 19:00 86 06/06/17 18:40 83 117/89 06/06/17 18:00 86 06/06/17 17:00 82 06/06/17 15:32 91 06/06/17 15:20 06/06/17 15:13 85 16 114/50 (71) 97 06/06/17 14:21 80 18 110/80 (90) 99 Room Air 06/06/17 13:22 87 18 102/72 (82) 99 Room Air 06/06/17 11:49 98 Room Air 06/06/17 11:49 98 Room Air 06/06/17 11:34 83 18 109/86 (94) 99 Room Air 06/06/17 11:20 20 Room Air 06/06/17 11:01 98.2 87 15 136/91 (106) 99 I/O 06/06/17 06/06/17 06/06/17 06/07/17 06/07/17 06/07/17 07:00 15:00 23:00 07:00 15:00 23:00 Intake Total 120 ml 2167 ml Output Total 750 ml Balance 120 ml 1417 ml Intake Oral 120 ml 480 ml IV Total 1687 ml Output Urine Total 750 ml # Bowel Movements 0 Physical Exam GENERAL: SKIN: Warm and dry. HEAD: Normocephalic. EYES: No scleral icterus. No injection or drainage. NECK: Supple, trachea midline. No JVD or lymphadenopathy. CARDIOVASCULAR: Regular rate and rhythm without murmurs, gallops, or rubs. RESPIRATORY: Breath sounds equal bilaterally. No accessory muscle use. GASTROINTESTINAL: Abdomen soft, non-tender, nondistended. MUSCULOSKELETAL: No cyanosis, or edema. BACK: Nontender without obvious deformity. No CVA tenderness. Laboratory Laboratory Tests Test 06/06/17 11:30 06/06/17 14:34 06/06/17 18:29 06/07/17 00:14 White Blood Count 5.2 TH/MM3 6.2 TH/MM3 Red Blood Count 5.22 MIL/MM3 4.82 MIL/MM3 Hemoglobin 15.7 GM/DL 14.4 GM/DL Hematocrit 47.0 % 43.1 % Mean Corpuscular Volume 90.0 FL 89.4 FL Mean Corpuscular Hemoglobin 30.1 PG 29.9 PG Mean Corpuscular Hemoglobin Concent 33.4 % 33.4 % Red Cell Distribution Width 14.8 % 14.5 % Platelet Count 167 TH/MM3 154 TH/MM3 Mean Platelet Volume 7.5 FL 7.1 FL Neutrophils (%) (Auto) 59.1 % Lymphocytes (%) (Auto) 29.2 % Monocytes (%) (Auto) 11.3 % Eosinophils (%) (Auto) 0.2 % Basophils (%) (Auto) 0.2 % Neutrophils # (Auto) 3.1 TH/MM3 Lymphocytes # (Auto) 1.5 TH/MM3 Monocytes # (Auto) 0.6 TH/MM3 Eosinophils # (Auto) 0.0 TH/MM3 Basophils # (Auto) 0.0 TH/MM3 CBC Comment DIFF FINAL Differential Comment Prothrombin Time 11.0 SEC 11.4 SEC Prothromb Time International Ratio 1.0 RATIO 1.0 RATIO Activated Partial Thromboplast Time 25.4 SEC 28.5 SEC 70.3 SEC Blood Urea Nitrogen 18 MG/DL Creatinine 1.05 MG/DL Random Glucose 118 MG/DL Calcium Level 9.1 MG/DL Magnesium Level 1.9 MG/DL Sodium Level 135 MEQ/L Potassium Level 3.3 MEQ/L Chloride Level 97 MEQ/L Carbon Dioxide Level 30.6 MEQ/L Anion Gap 7 MEQ/L Estimat Glomerular Filtration Rate 91 ML/MIN Total Creatine Kinase 473 U/L 505 U/L 629 U/L Creatine Kinase MB 22.5 NG/ML 37.5 NG/ML 57.9 NG/ML Creatine Kinase MB % 4.8 % 7.4 % 9.2 % Troponin I 0.97 NG/ML 2.38 NG/ML 6.34 NG/ML Test 06/07/17 05:50 Activated Partial Thromboplast Time 40.1 SEC Imaging Last Impressions Chest X-Ray 06/06/17 1138 Signed Impressions: Service Date/Time: June 11:58 - CONCLUSION: The lungs are clear. Blake Rangel MD Assessment and Plan Assessment and Plan NSTEMI - LHC today NPO Vladimir Martinez MD Jun 07, 2017 08:31
[2017-06-07] MEDS ORDERED: ASPIRIN 325 MG TAB PO SCH (09:00)
[2017-06-07] MEDS ORDERED: HEPARIN-NS/PF INJ 1,000 ML ONE (09:03)
[2017-06-07] MEDS ORDERED: HEPARIN SODIUM - IV 10,000 UNITS/10 ML VIAL ONE (09:04)
[2017-06-07] MEDS ORDERED: MIDAZOLAM HCL 2 MG/2 ML VIAL ONE ×2 (09:05→09:22)
[2017-06-07] MEDS ORDERED: NITROGLYCERIN INJ 5 ML ONE (09:05)
--- NOTE | 2017-06-07 09:11 | HHI.PR ---
Subjective Remarks cp free after titrating up ntg gtt Objective Vitals heart reg lung cta abd s/nt ext no edema Vital Signs Date Time Temp Pulse Resp B/P (MAP) Pulse Ox O2 Delivery O2 Flow Rate FiO2 06/07/17 08:00 77 06/07/17 07:00 97.4 80 14 114/88 (97) 97 06/07/17 07:00 74 06/07/17 06:00 68 06/07/17 05:00 78 06/07/17 04:00 80 06/07/17 03:30 98.4 71 16 122/84 (97) 97 06/07/17 03:00 81 06/07/17 02:00 74 06/07/17 01:00 79 06/07/17 00:00 74 06/06/17 23:00 74 06/06/17 23:00 98.2 78 16 113/77 (89) 98 06/06/17 22:00 84 06/06/17 21:00 94 06/06/17 20:00 85 06/06/17 20:00 98.6 85 16 127/96 (106) 99 06/06/17 19:00 86 06/06/17 18:40 83 117/89 06/06/17 18:00 86 06/06/17 17:00 82 06/06/17 15:32 91 06/06/17 15:20 06/06/17 15:13 85 16 114/50 (71) 97 06/06/17 14:21 80 18 110/80 (90) 99 Room Air 06/06/17 13:22 87 18 102/72 (82) 99 Room Air 06/06/17 11:49 98 Room Air 06/06/17 11:49 98 Room Air 06/06/17 11:34 83 18 109/86 (94) 99 Room Air 06/06/17 11:20 20 Room Air 06/06/17 11:01 98.2 87 15 136/91 (106) 99 Result Diagram: 06/06/17 18206/06/171129 Imaging Last Impressions Chest X-Ray 06/06/17 1138 Signed Impressions: Service Date/Time: June 11:58 - CONCLUSION: The lungs are clear. Blake Rangel MD A/P Problem List: (1) Chest pain ICD Codes: R07.9 - Chest pain, unspecified Status: Acute Plan: - Pt is a 47 y/o male with HTN, COPD, recently diagnosed A. fib, and hx of tobacco use - He presented to the ED with complaints of new onset chest pain - elevated CE - admitted for NSTEMI -[facility] today -cont current cardiac meds. (2) Elevated troponin ICD Codes: R74.8 - Abnormal levels of other serum enzymes Status: Acute Plan: - See above. (3) Atrial fibrillation ICD Codes: I48.91 - Unspecified atrial fibrillation Plan: - BB as BP allows - Telemetry (4) HTN (hypertension) ICD Codes: I10 - Hypertension Status: Chronic (5) Tobacco use ICD Codes: Z72.0 - Tobacco use Status: Chronic Plan: - Pt reportedly quit smoking 3 weeks ago and is on Chantix Problem Qualifiers (1) Chest pain: Qualified Codes: R07.9 - Chest pain, unspecified (2) Atrial fibrillation: Qualified Codes: I48.2 - Chronic atrial fibrillation Jet Bazan MD Jun 07, 2017 09:11
[2017-06-07 09:45] LABS: BICARBONATE 27.5 MEQ/L (21.0-32.0); POTASSIUM 3.5 MEQ/L (3.5-5.1)
[2017-06-07] MEDS ORDERED: MISC INFORMATION XX ONE (09:45)
[2017-06-07] MEDS ORDERED: INFLUENZA VIRUS VACCINE (QUADRIVALENT) 0.5 ML SYR IM ONE (10:00)
[2017-06-07] MEDS ORDERED: PNEUMOCOCCAL POLYVALENT INJ 25 MCG/0.5 ML SYR IM ONE (10:00)
[2017-06-07] MEDS: RESP: ALBUTEROL 2.5 MG/IPRATROPIUM 0.5 MG NEB (SCH) INH (10:02)
--- NOTE | 2017-06-07 10:36 | MA ---
cc: DOMINICK KRISHNAMURTHY DATE 06/07/2017 PROCEDURE PERFORMED 1. Fluoroscopy with interpretation 2. Coronary angiography METHOD The risks, benefits and alternatives discussed with the patient. The patient understood and consented to the procedure. PROCEDURE The patient brought into the catheterization lab, placed on the catheterization table. The right wrist was prepped and draped in a sterile fashion. The right wrist was anesthetized with 2% lidocaine. The right radial artery was cannulated and a 6-Upper Sorbian, 7 cm sheath was placed without difficulty. 200 mcg of intravenous nitroglycerin, in addition to 3000 units of intravenous heparin was administered. CORONARY ANGIOGRAPHY 1. Left main coronary artery is angiographically normal. 2. Left anterior descending coronary artery is a large caliber size and has mild luminal irregularities, mild calcium present proximally, but no significant high-grade stenosis. It wraps around the inflow apex. 3. Left circumflex is a dominant vessel giving rise to a posterior descending branch. The proximal circumflex has minor luminal irregularities giving rise to an obtuse marginal branch. The distal circumflex just proximal to the posterior descending branch has about a 50% eccentric stenosis. There is a smaller posterolateral branch which is subtotally occluded, but rather diffusely diseased. I suspect it is likely the culprit lesion. 4. The right coronary is nondominant vessel with minor luminal irregularities. CONCLUSION Subtotally occluded posterolateral branch. PLAN Given the small territory of myocardial involvement and distal, we will attempt to manage medically. We will start a long-acting nitrate in addition to the aspirin and Plavix and blood pressure control. If he has any residual symptoms, we may do a fractional flow reserve measurement of the distal circumflex coronary artery, but it does not look hemodynamically significant based on angiographic evaluation. MD AZAEL Sterling/CASTRO /9:43 AM /10:22 AM
[2017-06-07] MEDS: SODIUM CHLORIDE 0.9% FLUSH 10 ML FLUSH IV FLUSH SCH ×2 (10:57→19:59)
[2017-06-07] MEDS: PANTOPRAZOLE SOD 40 MG DELAYED RELEASE TAB PO SCH (10:57)
[2017-06-07] MEDS: METOPROLOL TARTRATE 25 MG TAB PO SCH ×2 (10:57→19:59)
[2017-06-07] MEDS ORDERED: BACITRACIN OINT 0.9 GM PKT TOP ONE (11:30)
[2017-06-07] MEDS ORDERED: POTASSIUM CHLORIDE 20 MEQ CONTROLLED RELEASE TAB PO ONE (11:30)
[2017-06-07] MEDS: ISOSORBIDE MONONITRATE 60 MG TAB PO SCH (12:07)
--- NOTE | 2017-06-07 13:14 | EKG ---
Date Performed: 06/06/2017 Time Performed: 17:03:26 PTAGE: 47 years EKG: Atrial fibrillation Poor R wave progression - probable normal variant Lateral T wave change s may be due to myocardial ischemia Abnormal ECG PREVIOUS TRACING : 06/06/2017 11.18 Compared to prior tracing no significant change DOCTOR: Shaggy Mayer Interpretating Date/Time 06/07/2017 13:10:57
[2017-06-07] MEDS ORDERED: APIXABAN 5 MG TABLET PO SCH (21:00)
[2017-06-08] VITALS (10 sets, daily range): BP systolic 116–127; BP diastolic 76–94; PULSE 86–100; RESP 18–20; TEMP 98–98.2; O2SAT 96–97
[2017-06-08] MEDS: ISOSORBIDE MONONITRATE 60 MG TAB PO SCH (06:19)
[2017-06-08] MEDS: SODIUM CHLOR 0.9% 1000 ML INJ 1,000 ML IV SCH (06:20)
--- NOTE | 2017-06-08 06:46 | PD.CARD.PN ---
Subjective Subjective Remarks no overnight events no CV complaints Objective Medications Current Medications Medications (Trade) Dose Ordered Sig/Kate Route Start Time Stop Time Status Last Admin (NS Flush) 2 ml UNSCH PRN IV FLUSH 06/06/17 12:45 (NS Flush) 2 ml BID IV FLUSH 06/06/17 21:00 06/07/17 19:59 Sodium Chloride 1,000 ml @ 100 mls/hr Q10H IV 06/06/17 12:42 06/08/17 06:20 (Nitrostat Sl) 0.4 mg Q5M PRN SL 06/06/17 12:45 06/06/17 15:04 (Tylenol) 500 mg Q4H PRN PO 06/06/17 15:15 (Casey 7.5-325 Mg) 1 tab Q4H PRN PO 06/06/17 15:15 (Morphine Inj) 2 mg Q5M PRN IV PUSH 06/06/17 15:15 06/06/17 18:26 (Protonix) 40 mg DAILY PO 06/07/17 09:00 06/07/17 10:57 (Xanax) 0.25 mg TID PRN PO 06/06/17 15:15 06/08/17 00:54 (Zofran Inj) 4 mg Q6H PRN IV 06/06/17 15:15 (Proair Hfa Inh) 2 puff Q4H PRN INH 06/06/17 15:15 (Duoneb Neb) 1 ampule DAILY NEB INH 06/07/17 08:00 06/07/17 10:02 (Lopressor) 25 mg Q12HR PO 06/06/17 21:00 06/07/17 19:59 Nitroglycerin/ Dextrose 250 ml @ 1.5 mls/hr TITRATE PRN IV 06/06/17 18:00 06/06/17 18:40 (Aspirin Chew) 81 mg DAILY PO 06/08/17 09:00 (Imdur) 60 mg DAILY@07 PO 06/07/17 11:45 06/08/17 06:19 (Eliquis) 5 mg BID PO 06/07/17 21:00 06/07/17 19:59 Vital Signs / I&O Vital Signs Date Time Temp Pulse Resp B/P (MAP) Pulse Ox O2 Delivery O2 Flow Rate FiO2 06/08/17 06:00 94 06/08/17 05:00 92 06/08/17 04:00 96 06/08/17 04:00 Room Air 06/08/17 04:00 98.0 96 18 127/94 (105) 96 06/08/17 03:00 92 06/08/17 02:00 95 06/08/17 01:00 100 06/08/17 00:00 98.1 86 18 116/76 (89) 97 06/08/17 00:00 86 06/08/17 00:00 Room Air 06/07/17 23:00 92 06/07/17 22:00 99 06/07/17 21:00 89 06/07/17 20:00 93 06/07/17 20:00 98.4 93 20 124/77 (93) 97 06/07/17 18:00 113 06/07/17 17:00 78 06/07/17 16:00 52 06/07/17 15:00 97.3 65 14 111/99 (103) 96 06/07/17 15:00 65 06/07/17 15:00 65 06/07/17 14:00 52 06/07/17 13:00 71 06/07/17 13:00 80 06/07/17 12:00 78 06/07/17 11:00 102 06/07/17 11:00 98.1 99 16 114/74 (87) 96 06/07/17 08:00 77 06/07/17 07:00 97.4 80 14 114/88 (97) 97 06/07/17 07:00 74 I/O 06/07/17 06/07/17 06/07/17 06/08/17 06/08/17 06/08/17 07:00 15:00 23:00 07:00 15:00 23:00 Intake Total 2167 ml 400 ml 1540 ml Output Total 750 ml 600 ml 800 ml Balance 1417 ml -200 ml 740 ml Intake Oral 480 ml 400 ml 480 ml IV Total 1687 ml 1060 ml Output Urine Total 750 ml 600 ml 800 ml # Bowel Movements 0 0 Physical Exam GENERAL: Well-nourished, well-developed patient. SKIN: Warm and dry. HEAD: Normocephalic. EYES: No scleral icterus. No injection or drainage. NECK: Supple, trachea midline. No JVD or lymphadenopathy. CARDIOVASCULAR: Regular rate and rhythm without murmurs, gallops, or rubs. RESPIRATORY: Breath sounds equal bilaterally. No accessory muscle use. GASTROINTESTINAL: Abdomen soft, non-tender, nondistended. EXTREMITIES: No cyanosis, or edema. NEUROLOGICAL: Awake, alert, and oriented x 3. Non-focal. Laboratory Laboratory Tests Test 06/07/17 08:11 Blood Urea Nitrogen 12 MG/DL Creatinine 0.67 MG/DL Random Glucose 92 MG/DL Calcium Level 8.6 MG/DL Sodium Level 138 MEQ/L Potassium Level 3.5 MEQ/L Chloride Level 104 MEQ/L Carbon Dioxide Level 27.5 MEQ/L Anion Gap 7 MEQ/L Estimat Glomerular Filtration Rate 153 ML/MIN Imaging Last Impressions Chest X-Ray 06/06/17 1138 Signed Impressions: Service Date/Time: June 11:58 - CONCLUSION: The lungs are clear. Blake Rangel MD Assessment and Plan Problem List: (1) NSTEMI (non-ST elevated myocardial infarction) ICD Codes: I21.4 - Non-ST elevation (NSTEMI) myocardial infarction Plan: small territory ischemia not amendable to PCI Cont medical management Afib rate controlled CHADVASC score 1 Recs ASA 325mg PO daily BB Long acting Nitrates Statins HCTZ Amlodipine Encourage ambulation stable to d/c home today (2) Atrial fibrillation ICD Codes: I48.91 - Unspecified atrial fibrillation (3) HTN (hypertension) ICD Codes: I10 - Hypertension Status: Chronic (4) Elevated troponin ICD Codes: R74.8 - Abnormal levels of other serum enzymes Status: Acute Problem Qualifiers (1) Atrial fibrillation: Qualified Codes: I48.2 - Chronic atrial fibrillation Dieter Jamison MD Jun 08, 2017 06:46
--- NOTE | 2017-06-08 07:38 | HHI.PR ---
Subjective Remarks had h/a after imdur. Objective Vitals heart irreg lung cta abd s/nt ext no edema Vital Signs Date Time Temp Pulse Resp B/P (MAP) Pulse Ox O2 Delivery O2 Flow Rate FiO2 06/08/17 07:00 Room Air 06/08/17 06:00 94 06/08/17 05:00 92 06/08/17 04:00 96 06/08/17 04:00 Room Air 06/08/17 04:00 98.0 96 18 127/94 (105) 96 06/08/17 03:00 92 06/08/17 02:00 95 06/08/17 01:00 100 06/08/17 00:00 98.1 86 18 116/76 (89) 97 06/08/17 00:00 86 06/08/17 00:00 Room Air 06/07/17 23:00 92 06/07/17 22:00 99 06/07/17 21:00 89 06/07/17 20:00 93 06/07/17 20:00 98.4 93 20 124/77 (93) 97 06/07/17 18:00 113 06/07/17 17:00 78 06/07/17 16:00 52 06/07/17 15:00 97.3 65 14 111/99 (103) 96 06/07/17 15:00 65 06/07/17 15:00 65 06/07/17 14:00 52 06/07/17 13:00 71 06/07/17 13:00 80 06/07/17 12:00 78 06/07/17 11:00 102 06/07/17 11:00 98.1 99 16 114/74 (87) 96 06/07/17 08:00 77 Result Diagram: 06/06/17 1829 06/07/17 0811 Imaging Last Impressions Chest X-Ray 06/06/17 1138 Signed Impressions: Service Date/Time: June 11:58 - CONCLUSION: The lungs are clear. Blake Rangel MD A/P Problem List: (1) NSTEMI (non-ST elevated myocardial infarction) ICD Codes: I21.4 - Non-ST elevation (NSTEMI) myocardial infarction Plan: 1. nstemi. subtotal occlusion of posterolateral branch. 2. afib controlled 3. htn 4. tob use. stopped Plan d/c on metoprolol, statin, asa, plavix, imdur will lower to 30mg due to h/a discussed at bedside with DR Huggins...he would like to add back hctz 12.5mg daily and his norvasc 10mg daily. hold the bisoprolol and clonidine. also his risk score was only 1 and recommending no eliquis. I spoke to dr Martinez who agrees but we will do asa/plavix. f/u closely in office. (2) Chest pain ICD Codes: R07.9 - Chest pain, unspecified Status: Acute (3) Elevated troponin ICD Codes: R74.8 - Abnormal levels of other serum enzymes Status: Acute Plan: - See above. (4) Atrial fibrillation ICD Codes: I48.91 - Unspecified atrial fibrillation Plan: - BB as BP allows - Telemetry (5) HTN (hypertension) ICD Codes: I10 - Hypertension Status: Chronic (6) Tobacco use ICD Codes: Z72.0 - Tobacco use Status: Chronic Plan: - Pt reportedly quit smoking 3 weeks ago and is on Chantix Problem Qualifiers (1) Chest pain: Qualified Codes: R07.9 - Chest pain, unspecified (2) Atrial fibrillation: Qualified Codes: I48.2 - Chronic atrial fibrillation Jet Bazan MD Jun 08, 2017 07:38
[2017-06-08] MEDS ORDERED: METO-309 PO (07:44)
[2017-06-08] MEDS ORDERED: ISOS30TA3 PO (07:44)
[2017-06-08] MEDS ORDERED: HYDR12.57 PO (07:44)
[2017-06-08] MEDS ORDERED: ASPI81CH25 PO (07:44)
[2017-06-08] MEDS ORDERED: PLAV75TA29 PO (07:44)
[2017-06-08] MEDS ORDERED: ATOR1TAB18 PO (07:44)
--- NOTE | 2017-06-08 07:44 | HHI.DCPOC ---
Discharge Care Plan Diagnosis: (1) NSTEMI (non-ST elevated myocardial infarction) (2) Atrial fibrillation (3) HTN (hypertension) Goals to Promote Your Health * To prevent worsening of your condition and complications * To maintain your health at the optimal level Directions to Meet Your Goals Take your medications as prescribed Follow your dietary instruction Follow activity as directed Keep your appointments as scheduled Take your immunizations and boosters as scheduled If your symptoms worsen call your PCP, if no PCP go to Urgent Care Center or Emergency Room Smoking is Dangerous to Your Health. Avoid second hand smoke Call the 24-hour hour crisis hotline for domestic abuse at Jet Bazan MD Jun 08, 2017 07:44
[2017-06-08] MEDS: RESP: ALBUTEROL 2.5 MG/IPRATROPIUM 0.5 MG NEB (SCH) INH (08:00)
[2017-06-08] MEDS ORDERED: ATORVASTATIN 80 MG TAB PO SCH (09:00)
[2017-06-08] MEDS ORDERED: ASPIRIN 81 MG CHEW TAB PO SCH (09:00)
[2017-06-08] MEDS ORDERED: METOPROLOL TARTRATE 50 MG TAB PO SCH (09:00)
[2017-06-08] MEDS: SODIUM CHLORIDE 0.9% FLUSH 10 ML FLUSH IV FLUSH SCH (09:00)
[2017-06-08] MEDS: PANTOPRAZOLE SOD 40 MG DELAYED RELEASE TAB PO SCH (09:00)
== END 2017-06-08 10:25 | disposition home or self-care (01) | DRG 282 ==
LOC: NEPC 11:00 → NEDA 12:40 → HCIS 14:53
PROVIDERS: ADMIT Hospitalist; ATTEND Hospitalist
PROC: B2111ZZ Fluoroscopy of Multiple Coronary Arteries using Low Osmolar Contrast (ICD-10-PCS; principal; 2017-06-07 10:00)
DX: I21.4 Non-ST elevation (NSTEMI) myocardial infarction (principal); I10 Essential (primary) hypertension; Z87.891 Personal history of nicotine dependence; J44.9 Chronic obstructive pulmonary disease, unspecified; E87.6 Hypokalemia; I48.91 Unspecified atrial fibrillation
CPT/HCPCS: 71010; 76937; 80048; 82550; 82552; 83735; 84484; 85025; 85027; 85610; 85730; 93005; 93306; 93454; 94664; 96361; 96374; C1769; C1893; G0378; J1644; J2250; J2270; J3010; J7030

== ENCOUNTER 2017-07-29 12:09 | Emergency (ER) | payer OTHER ==
[~2017-07-29] VITALS: Ht 190.5 cm; Wt 116.0 kg
[~2017-07-29 12:09] MED LIST changes: +APIX5TAB PO; +ASPI81CH25 PO; +ATOR80TA45 PO; -BISO10TA2 PO; -CLON0.1T PO; +HYDR12.57 PO; +ISOS30TA3 PO; +METO-309 PO; +PLAV75TA29 PO; -PRED20 PO; +VARE.5 PO; +VENTAER INH
[2017-07-29 12:13] VITALS: BP 162/76; PULSE 95; RESP 12; TEMP 98.4; O2SAT 96
[2017-07-29 13:04] LABS: AUTOMATED NEUTROPHIL # 2.8 TH/MM3 (1.8-7.7); BASOPHIL # 0.1 TH/MM3 (0-0.2); EOSINOPHIL % 0.5 % (0.0-4.0); HEMATOCRIT 46.6 % (39.0-51.0); HEMO FLAGS DIFF FINAL; LYMPH % 40.2 % (9.0-44.0); LYMPHOCYTE # 2.5 TH/MM3 (1.0-4.8); MEAN CELL VOLUME 91.8 FL (80.0-100.0); MEAN CORPUSCULAR HEMOGLOBIN 30.7 PG (27.0-34.0); MEAN CORPUSCULAR HGB CONC 33.4 % (32.0-36.0); MONO % 12.9 % (0.0-8.0); NEUT % 45.4 % (16.0-70.0); PLATELET COUNT 152 TH/MM3 (150-450); RED BLOOD COUNT 5.08 MIL/MM3 (4.50-5.90); WHITE BLOOD COUNT 6.3 TH/MM3 (4.0-11.0)
[2017-07-29 13:20] LABS: APTT (PATIENT) 28.7 SEC (24.3-30.1); PROTHROMBIN TIME - PATIENT 11.4 SEC (9.8-11.6)
[2017-07-29 13:26] LABS: ALT (GPT) 71 U/L (12-78); ANION GAP 8 MEQ/L (5-15); AST (GOT) 54 U/L (15-37); BICARBONATE 25.7 MEQ/L (21.0-32.0); BLOOD UREA NITROGEN 11 MG/DL (7-18); CHLORIDE 104 MEQ/L (98-107); GLOMERULAR FILTRATION RATE 101 ML/MIN (>89); POTASSIUM 4.1 MEQ/L (3.5-5.1); SODIUM (NA) 138 MEQ/L (136-145)
[2017-07-29 13:28] LABS: ALKALINE PHOSPHATASE 97 U/L (45-117); TOTAL BILIRUBIN ADULT 0.7 MG/DL (0.2-1.0)
[2017-07-29 13:32] VITALS: BP 144/103; PULSE 66; RESP 19; O2SAT 97
[2017-07-29] MEDS ORDERED: ISOS60TA PO (13:35)
[2017-07-29] MEDS ORDERED: SODIUM CHLORIDE 0.9% FLUSH 10 ML FLUSH IVF PRN (14:30)
[2017-07-29] MEDS ORDERED: DILTIAZEM HCL 25 MG/5 ML VIAL IV ONE (14:30)
--- NOTE | 2017-07-29 14:37 | PD ---
HPI Chief Complaint: GI Complaint Time Seen by Provider: 14:03 Travel History International Travel<30 days: No Contact w/Intl Traveler<30days: No Traveled to known affect area: No History of Present Illness HPI This patient came to the ER complaining of bright red rectal bleeding. Duration 2 days. He is on Eliquis for A. fib as well as aspirin and Plavix. He has history of coronary artery disease reporting history of SD. Patient had a protocol initiated and later on came back to the emergency room pod. There are I spoke with him and he mentioned he's been having chest pain on and off for several days. He hadn't mentioned that on the initial evaluation by nurse practitioner Kathrine. In any event he is currently pain-free but had a spell today at 11:00. He describes it as a sternal brief 30 second spells that resolve and are nonexertional. He says he had a heart catheterization here 2 or 3 weeks ago but there is none on file in the records. Severity is moderate. Duration 2 days. He's never had a colonoscopy or had history of GI bleeding. No alleviating factors. Bleeding likely exacerbated by his anticoagulants. PFSH Past Medical History Hx Anticoagulant Therapy: Yes (ASA, plavix, eloquis) Arthritis: Yes Asthma: No Blood Disorders: No Heart Rhythm Problems: Yes (A-FIB) Cancer: No Cardiac Catheterization: Yes (JUN 2017) Cardiovascular Problems: Yes (SD; HTN) High Cholesterol: Yes Chemotherapy: No Chest Pain: No Congestive Heart Failure: No COPD: Yes Cerebrovascular Accident: Yes (TIA) Coronary Artery Disease: Yes Diabetes: Yes (borderline) Patient Takes Glucophage: No Diminished Hearing: No Endocrine: No Genitourinary: No Headaches: Yes Hypertension: Yes Musculoskeletal: Yes (PAIN RIGHT LOWER LEG) Neurologic: No Psychiatric: No Reproductive: No Respiratory: Yes (COPD) Immunizations Current: Yes Migraines: Yes Radiation Therapy: No Sleep Apnea: No Thyroid Disease: No Past Surgical History Hysterectomy: No Other Surgery: Yes (hernia repair) Social History Alcohol Use: No Tobacco Use: No (CURRENTLY ON CHANTIX/QUIT 4 WEEKS AGO ) Substance Use: No Allergies-Medications (Allergen,Severity, Reaction): Coded Allergies: lisinopril (Unverified Allergy, Severe, Anaphylaxis, 07/29/17) Uncoded Allergies: JUST FOR MEN (Allergy, Severe, Shortness of Breath, 06/06/17) Reported Meds & Prescriptions Reported Meds & Active Scripts Active Zofran (Ondansetron HCl) 4 Mg Tab 4 Mg PO Q6HR PRN Eliquis (Apixaban) 5 Mg Tab 5 Mg PO BID Plavix (Clopidogrel Bisulfate) 75 Mg Tab 75 Mg PO DAILY Hydrochlorothiazide 12.5 Mg Cap 12.5 Mg PO DAILY Lopressor (Metoprolol Tartrate) 50 Mg Tab 50 Mg PO Q12HR Aspirin Low Strength (Aspirin) 81 Mg Chew 81 Mg PO DAILY Atorvastatin (Atorvastatin Calcium) 80 Mg Tab 80 Mg PO DAILY Reported Isosorbide Mononitrate ER (Isosorbide Mononitrate) 60 Mg Tab 60 Mg PO DAILY Chantix (Varenicline) 0.5 Mg Tab 0.5 Mg PO DAILY Days 1-3 Ventolin Hfa 18 GM Inh (Albuterol Sulfate) 90 Mcg/Act Aer 2 Puff INH Q4-6H PRN Norvasc (Amlodipine Besylate) 10 Mg Tab 10 Mg PO DAILY Review of Systems General / Constitutional: No: Fever Eyes: No: Visual changes HENT: No: Lightheadedness, Sore Throat Cardiovascular: Positive: Chest Pain or Discomfort Respiratory: No: Shortness of Breath Gastrointestinal: Positive: Hematochezia, No: Abdominal Pain Genitourinary: No: Dysuria Musculoskeletal: No: Pain Skin: No Rash Neurologic: No: Weakness Psychiatric: No: Depression Endocrine: No: Polydipsia Hematologic/Lymphatic: No: Easy Bruising Physical Exam Narrative GENERAL: Well-nourished, well-developed patient in no apparent distress. SKIN: Focused skin assessment reveals no rash and nodules. Skin is Warm and dry. HEAD: Atraumatic. Normocephalic. EYES: Pupils equal and round. No scleral icterus. No injection or drainage. ENT: No nasal bleeding or discharge. Mucous membranes pink and moist. NECK: Trachea midline. No JVD. CARDIOVASCULAR: Irregularly irregular rhythm. No murmur appreciated. Rate is variable between 115 and 135 RESPIRATORY: No accessory muscle use. Clear to auscultation. Breath sounds equal bilaterally. GASTROINTESTINAL: Abdomen soft, non-tender, nondistended. Hepatic and splenic margins not palpable. MUSCULOSKELETAL: No obvious deformities. No clubbing. No cyanosis. No edema. NEUROLOGICAL: Awake and alert. No obvious cranial nerve deficits. Motor grossly within normal limits. Normal speech. PSYCHIATRIC: Appropriate mood and affect; insight and judgment normal. Rectal: No external hemorrhoid or fissure Data Data Last Documented VS Vital Signs Date Time Temp Pulse Resp B/P (MAP) Pulse Ox O2 Delivery O2 Flow Rate FiO2 07/29/17 15:50 90 18 145/111 (122) 96 Room Air 07/29/17 12:13 98.4 Orders Orders Complete Blood Count With Diff (07/29/17 12:18) Comprehensive Metabolic Panel (07/29/17 12:18) Prothrombin Time / Inr (Pt) (07/29/17 12:18) Act Partial Throm Time (Ptt) (07/29/17 12:18) Type And Screen (07/29/17 12:18) Electrocardiogram (07/29/17 12:18) Ckmb (Isoenzyme) Profile (07/29/17 14:18) Troponin I (07/29/17 14:18) Chest, Single Ap (07/29/17 14:18) Ecg Monitoring (07/29/17 14:18) Iv Access Insert/Monitor (07/29/17 14:18) Oximetry (07/29/17 14:18) Sodium Chloride 0.9% Flush (Ns Flush) (07/29/17 14:30) Diltiazem Inj (Cardizem Inj) (07/29/17 14:30) CKMB (07/29/17 15:00) CKMB% (07/29/17 15:00) Ondansetron Inj (Zofran Inj) (07/29/17 16:45) Ed Discharge Order (07/29/17 16:45) Labs Laboratory Tests Test 07/29/17 12:50 07/29/17 15:00 White Blood Count 6.3 TH/MM3 Red Blood Count 5.08 MIL/MM3 Hemoglobin 15.6 GM/DL Hematocrit 46.6 % Mean Corpuscular Volume 91.8 FL Mean Corpuscular Hemoglobin 30.7 PG Mean Corpuscular Hemoglobin Concent 33.4 % Red Cell Distribution Width 15.0 % Platelet Count 152 TH/MM3 Mean Platelet Volume 7.0 FL Neutrophils (%) (Auto) 45.4 % Lymphocytes (%) (Auto) 40.2 % Monocytes (%) (Auto) 12.9 % Eosinophils (%) (Auto) 0.5 % Basophils (%) (Auto) 1.0 % Neutrophils # (Auto) 2.8 TH/MM3 Lymphocytes # (Auto) 2.5 TH/MM3 Monocytes # (Auto) 0.8 TH/MM3 Eosinophils # (Auto) 0.0 TH/MM3 Basophils # (Auto) 0.1 TH/MM3 CBC Comment DIFF FINAL Differential Comment Prothrombin Time 11.4 SEC Prothromb Time International Ratio 1.0 RATIO Activated Partial Thromboplast Time 28.7 SEC Blood Urea Nitrogen 11 MG/DL Creatinine 0.96 MG/DL Random Glucose 70 MG/DL Total Protein 7.5 GM/DL Albumin 3.9 GM/DL Calcium Level 9.1 MG/DL Alkaline Phosphatase 97 U/L Aspartate Amino Transf (AST/SGOT) 54 U/L Alanine Aminotransferase (ALT/SGPT) 71 U/L Total Bilirubin 0.7 MG/DL Sodium Level 138 MEQ/L Potassium Level 4.1 MEQ/L Chloride Level 104 MEQ/L Carbon Dioxide Level 25.7 MEQ/L Anion Gap 8 MEQ/L Estimat Glomerular Filtration Rate 101 ML/MIN Total Creatine Kinase 895 U/L Creatine Kinase MB 16.6 NG/ML Creatine Kinase MB % 1.9 % Troponin I 0.10 NG/ML [facility] Medical Decision Making Medical Screen Exam Complete: Yes Emergency Medical Condition: Yes Medical Record Reviewed: Yes Differential Diagnosis GI tumor, internal hemorrhoid, diverticulosis Narrative Course I have reviewed the patient's electronic medical record. Multiple visits noted over the last 2 years and had a recent heart catheterization in June 2017 IV placed I reviewed the EKG which shows A. fib with RVR but no ST elevation I reviewed the chest x-ray which is negative for acute problem Extended cardiac monitoring shows A. fib with a rapid rate CBC shows hemoglobin of 15.6 Metabolic profile is normal is negative CK is noted Troponin is 0.1, much improved from prior I reviewed the case in detail with patient's ux engineer Dr. bajwa. Patient had recent heart catheterization shows hematocrit me is well-defined and Dr. bajwa recommends outpatient follow-up. He doesn't think this very atypical pain , 30 seconds and nonexertional, is ischemic related. He will follow him in the office. Regarding his GI bleed he is stable. His blood pressure is normal and his hemoglobin is healthy. He will stop the Eliquis due to the bleeding but continue aspirin and Plavix as a compromise. Dr. Bajwa felt this was the way to go and I agree with this. We discussed stroke risk weighing against bleeding risk. Discussed with patient and family and questions answered At time of discharge he is pain-free. He had one episode of nausea and vomiting and I gave him a dose of Zofran and a few on prescription. He will call his primary physician tomorrow and ask for GI follow-up/ colonoscopy. For worsening will return Rate is normal now Diagnosis Primary Impression: GI bleed Qualified Codes: K92.2 - Gastrointestinal hemorrhage, unspecified Additional Impressions: Atrial fibrillation Qualified Codes: I48.2 - Chronic atrial fibrillation Atypical chest pain Additional Instructions: The patient was advised to follow up with their primary care physician and return if they worsen. Stop Eliquis As for GI follow-up/colonoscopy Follow-up with Dr. bajwa Med/Other Pt SpecificInfo: Prescription(s) given, Other Scripts Ondansetron (Zofran) 4 Mg Tab 4 MG PO Q6HR Y for NAUSEA OR VOMITING, #10 TAB 0 Refills Prov: Isiah Gallardo MD 07/29/17 Disposition: DISCHARGE HOME Condition: Stable Isiah Gallardo MD Jul 29, 2017 14:37
[2017-07-29 15:03] VITALS: BP 164/106; PULSE 137; RESP 18; O2SAT 97
[2017-07-29 15:16] VITALS: BP 159/89; PULSE 90
--- NOTE | 2017-07-29 15:16 | RADRPT ---
EXAM DATE/TIME: 07/29/2017 15:01 [facility] COMPARISON: CHEST SINGLE AP, July 05, 2017, 16:45. INDICATIONS : Chest pain, short of breath and rapid heart beat for 3 days MEDICAL HISTORY : Chronic obstructive pulmonary disease. former smoker SURGICAL HISTORY : cardiac cath ENCOUNTER: Initial ACUITY: 3 days PAIN SCORE: 10/10 LOCATION: Bilateral chest FINDINGS: 2 frontal views of the chest demonstrate the lungs to be symmetrically aerated without evidence of ma ss, infiltrate or effusion. There is elevation of the right hemidiaphragm which is unchanged. The car diomediastinal contours are unremarkable. Osseous structures are intact. CONCLUSION: No acute disease. Blake Guerra Jr., MD on July 29, 2017 at 15:10 Board Certified Radiologist. This report was verified electronically.
[2017-07-29 15:50] VITALS: BP 145/111; PULSE 90; RESP 18; O2SAT 96
[2017-07-29 16:10] LABS: CKMB 16.6 NG/ML (0.5-3.6)
[2017-07-29] MEDS ORDERED: ZOFR4TAB PO (16:43)
[2017-07-29] MEDS ORDERED: ONDANSETRON HCL 4 MG/2 ML VIAL IV ONE (16:45)
[2017-07-29 16:47] VITALS: PULSE 110; RESP 18; O2SAT 96
--- NOTE | 2017-07-30 16:50 | EKG ---
Date Performed: 07/29/2017 Time Performed: 12:57:05 PTAGE: 47 years EKG: ATRIAL FIBRILLATION WITH RAPID VENTRICULAR RESPONSE POSSIBLE INFERIOR MYOCARDIAL INFARCTION When compaed to previous tracing, patient is now in atrial Fibrillation with rapid venricular rate. ABNORMAL RHYTHM ECG PREVIOUS TRACING : 07/05/2017 16.36 DOCTOR: Marissa Stout Interpretating Date/Time 07/30/2017 16:49:39
== END 2017-07-29 17:00 | disposition home or self-care (01) ==
LOC: NEPD 12:09
DX: K92.2 Gastrointestinal hemorrhage, unspecified (principal); I48.91 Unspecified atrial fibrillation; R07.89 Other chest pain; R94.31 Abnormal electrocardiogram [ECG] [EKG]; I10 Essential (primary) hypertension; E78.00 Pure hypercholesterolemia, unspecified; J44.9 Chronic obstructive pulmonary disease, unspecified; I25.10 Atherosclerotic heart disease of native coronary artery without angina pectoris; E11.9 Type 2 diabetes mellitus without complications
CPT/HCPCS: 71010; 80053; 82550; 82552; 84484; 85025; 85610; 85730; 86850; 86900; 86901; 93005; 96374; 96375; 99285; J2405

== ENCOUNTER 2017-10-22 12:21 | Emergency (ER) | payer OTHER ==
[~2017-10-22] VITALS: Ht 190.5 cm; Wt 109.0 kg
[~2017-10-22 12:21] MED LIST changes: -ISOS30TA3 PO; +ISOS60TA PO; +ZOFR4TAB PO
[2017-10-22 12:22] VITALS: BP 174/109; PULSE 65; RESP 18; TEMP 98.3; O2SAT 97
--- NOTE | 2017-10-22 13:08 | RADRPT ---
EXAM DATE/TIME: 10/22/2017 12:48 [facility] COMPARISON: No previous studies available for comparison. INDICATIONS : Headache since last saturday,tingling in both hands. RADIATION DOSE: 43.88 CTDIvol (mGy) MEDICAL HISTORY : Cardiovascular disease. Hypertension. Chronic obstructive pulmonary disease.Tia,migraine SURGICAL HISTORY : None. ENCOUNTER: Initial ACUITY: 4 - 6 days PAIN SCALE: 7/10 LOCATION: cranial TECHNIQUE: Multiple contiguous axial images were obtained of the head. Using automated exposure control and adj ustment of the mA and/or kV according to patient size, radiation dose was kept as low as reasonably a chievable to obtain optimal diagnostic quality images. DICOM format image data is available electro nically for review and comparison. FINDINGS: CEREBRUM: The ventricles are normal for age. No evidence of midline shift, mass lesion, hemorrhage or acute in farction. No extra-axial fluid collections are seen. POSTERIOR FOSSA: The cerebellum and brainstem are intact. The 4th ventricle is midline. The cerebellopontine angle i s unremarkable. EXTRACRANIAL: The visualized portion of the orbits is intact. SKULL: The calvaria is intact. No evidence of skull fracture. CONCLUSION: 1. No acute intracranial abnormalities. Rashad Huggins MD on October 22, 2017 at 13:03 Board Certified Radiologist. This report was verified electronically.
[2017-10-22] MEDS ORDERED: HYDR25TA5 PO (14:05)
[2017-10-22 14:06] VITALS: BP 158/103; PULSE 82; RESP 18; O2SAT 97
[2017-10-22] MEDS ORDERED: SODIUM CHLOR 0.9% 1000 ML INJ 1,000 ML IV ONE (14:14)
[2017-10-22] MEDS ORDERED: SODIUM CHLORIDE 0.9% FLUSH 10 ML FLUSH IVF PRN (14:15)
[2017-10-22] MEDS ORDERED: PROCHLORPERAZINE INJ 10 MG/2 ML VIAL IVP ONE (14:15)
[2017-10-22] MEDS ORDERED: diphenhydrAMINE HCL 50 MG/ML VIAL IVP ONE (14:15)
[2017-10-22] MEDS ORDERED: ACETAMINOPHEN 325 MG TAB PO ONE (14:30)
--- NOTE | 2017-10-22 15:03 | PD ---
HPI Chief Complaint: Headache Time Seen by Provider: 14:03 Travel History International Travel<30 days: No Contact w/Intl Traveler<30days: No Traveled to known affect area: No History of Present Illness HPI 47-year-old male presents to emergency Department with complaint of headache since Saturday. Reports history of intermittent headaches approximately every 3 months. Denies head injury. Current headache is consistent with past headaches. Headache has been constant and fluctuating in intensity since Saturday. Gradual onset. He vomited this morning. Denies confusion, disorientation, change in mentation, focal deficits or weakness. Said his roommate told him he had slurred speech this morning, but he did not notice. Reports vomiting one time this morning. Denies fevers. Denies change in vision. Denies photophobia or phonophobia. Denies chest pain, shortness of breath, abdominal pain. Takes Plavix for history of heart attack 6 months ago. Headache is right temporal. Throbbing in sensation. Rates headache 7/10. No known aggravating or relieving factors. Has tried taking Aleve with no symptom relief. Primary care provider is Dr. Hidalgo. Allergies to lisinopril and just for men hair dye. History of hypertension, [place], TIA, COPD. Has no other emergent medical complaints. No other modifying factors or associated signs and symptoms. PFSH Past Medical History Hx Anticoagulant Therapy: Yes (Plavix) Arthritis: Yes Asthma: No Blood Disorders: No Heart Rhythm Problems: Yes (A-FIB) Cancer: No Cardiac Catheterization: Yes (JUN 2017) Cardiovascular Problems: Yes (HTN, [place]) High Cholesterol: Yes Chemotherapy: No Chest Pain: No Congestive Heart Failure: No COPD: Yes Cerebrovascular Accident: Yes (TIA x3) Coronary Artery Disease: Yes Diabetes: Yes (borderline) Patient Takes Glucophage: No Diminished Hearing: No Endocrine: No Genitourinary: No Headaches: Yes Hypertension: Yes Musculoskeletal: Yes (PAIN RIGHT LOWER LEG) Neurologic: No Psychiatric: No Reproductive: No Respiratory: Yes (COPD) Immunizations Current: Yes Migraines: Yes Radiation Therapy: No Sleep Apnea: No Thyroid Disease: No Past Surgical History Hysterectomy: No Other Surgery: Yes (hernia repair) Social History Alcohol Use: No Tobacco Use: No (CURRENTLY ON CHANTIX/QUIT 4 WEEKS AGO ) Substance Use: No Allergies-Medications (Allergen,Severity, Reaction): Coded Allergies: lisinopril (Verified Allergy, Severe, Anaphylaxis, 10/22/17) Uncoded Allergies: JUST FOR MEN (Allergy, Severe, Shortness of Breath, 06/06/17) Reported Meds & Prescriptions Reported Meds & Active Scripts Active Plavix (Clopidogrel Bisulfate) 75 Mg Tab 75 Mg PO DAILY Lopressor (Metoprolol Tartrate) 50 Mg Tab 50 Mg PO Q12HR Aspirin Low Strength (Aspirin) 81 Mg Chew 81 Mg PO DAILY Atorvastatin (Atorvastatin Calcium) 80 Mg Tab 80 Mg PO DAILY Reported Hydrochlorothiazide 25 Mg Tab 25 Mg PO DAILY Isosorbide Mononitrate ER (Isosorbide Mononitrate) 60 Mg Tab 60 Mg PO DAILY Chantix (Varenicline) 0.5 Mg Tab 0.5 Mg PO DAILY Days 1-3 Ventolin Hfa 18 GM Inh (Albuterol Sulfate) 90 Mcg/Act Aer 2 Puff INH Q4-6H PRN Norvasc (Amlodipine Besylate) 10 Mg Tab 10 Mg PO DAILY Physical Exam Narrative GENERAL: Well-nourished, well-developed black male patient, in no acute distress SKIN: Warm and dry. HEAD: Atraumatic. Normocephalic. No facial droop noted. Tongue midline. Shoulder shrug is equal. Finger to nose test normal. EYES: Pupils equal and round at 3 mm with brisk reaction. No scleral icterus. No injection or drainage. PERRLA. EOMI. ENT: Mucosa pink and moist. Airway patent. NECK: Trachea midline. No lymphadenopathy. CARDIOVASCULAR: Regular rate and rhythm. No murmur appreciated. RESPIRATORY: No accessory muscle use. Clear to auscultation. Breath sounds equal bilaterally. GASTROINTESTINAL: Abdomen soft, non-tender, nondistended. Hepatic and splenic margins not palpable. Bowel sounds are active 4 quadrants. MUSCULOSKELETAL: No obvious deformities. No clubbing. No cyanosis. No edema. NEUROLOGICAL: Awake and alert. Oriented 4. No obvious cranial nerve deficits. Motor grossly within normal limits. Normal speech. No ataxia. No mid -line drift. No upper or lower extremity drift. Active dorsiflexion and extension of bilateral feet. Moves all extremities. 5/5 strength to all extremities and equal bilaterally. Sensory intact and equal bilaterally. PSYCHIATRIC: Appropriate mood and affect; insight and judgment normal. Data Data Last Documented VS Vital Signs Date Time Temp Pulse Resp B/P (MAP) Pulse Ox O2 Delivery O2 Flow Rate FiO2 10/22/17 14:06 82 18 158/103 (121) 97 Room Air 10/22/17 12:[address] Brain W/O Iv Contrast(Rout) (10/22/17 ) Iv Access Insert/Monitor (10/22/17 14:14) Sodium Chloride 0.9% Flush (Ns Flush) (10/22/17 14:15) Prochlorperazine Inj (Compazine Inj) (10/22/17 14:15) Diphenhydramine Inj (Benadryl Inj) (10/22/17 14:15) Sodium Chlor 0.9% 1000 Ml Inj (Ns 1000 M (10/22/17 14:14) Acetaminophen (Tylenol) (10/22/17 14:30) Ed Discharge Order (10/22/17 15:11) [facility] Medical Decision Making Medical Screen Exam Complete: Yes Emergency Medical Condition: Yes Medical Record Reviewed: Yes Differential Diagnosis Headache, hypertension, migraine Narrative Course 47-year-old male presents to the emergency department with complaint of headache. Neuro exam is unremarkable. History of headaches and states this headache is consistent with past headaches. CT head was ordered in triage and concludes: Head CT 10/22/17 0000 Signed Impressions: Service Date/Time: Sunday, October 22, 2017 12:48 - CONCLUSION: 1. No acute intracranial abnormalities. Rashad Huggins MD CT results were discussed with the patient. I discussed patient's care with Dr. Ventura, attending physician, and she agrees with the plan of care. IV, normal saline bolus, Compazine, Tylenol, Benadryl ordered. 1500: On reexamination the patient reports improvement in symptoms and denies headache. Instructed patient to follow up with neurology. Discussed being on Plavix and avoiding NSAIDs and patient verbalized understanding and agreement. Instruct the patient to take Tylenol as directed and as needed for headache. Instructed patient to follow up with primary care provider. Patient verbalizes understanding and agreement with treatment plan. Patient is medically cleared and stable for discharge. Discussed reasons to return to the emergency department. Patient agrees with treatment plan. The patients vital signs are stable and the patient is stable for outpatient follow-up and treatment. Patient discharged home, stable and in no acute distress. Diagnosis Primary Impression: Headache Qualified Codes: R51 - Headache Referrals: Neurologist Primary Care Physician Patient Instructions: Acute Headache (ED), General Instructions Additional Instructions: Tylenol as directed and as needed to reduce headache Get plenty of rest: do not over sleep rest and relax in a dark, quiet room as needed Place an ice pack on the back of her neck to reduce head pain as needed Keep a headache diary of what triggers her headaches and what treatment is most effective Avoid identifiable triggers Avoid smoking, alcohol and caffeine consumption Reduce stress Follow-up with primary care provider within 1-2 days Follow-up with neurology Return immediately to the emergency department with worsening symptoms Med/Other Pt SpecificInfo: No Change to Meds, No Meds Exist/No RX given Disposition: 01 DISCHARGE HOME Condition: Stable Lilia Patel Oct 22, 2017 15:03
[2017-10-22 15:43] VITALS: BP 133/96; PULSE 92; RESP 17; O2SAT 96
== END 2017-10-22 23:08 | disposition home or self-care (01) ==
LOC: NEPD 12:21
DX: R51 Headache (principal); E78.00 Pure hypercholesterolemia, unspecified; I10 Essential (primary) hypertension; I25.10 Atherosclerotic heart disease of native coronary artery without angina pectoris; Z79.02 Long term (current) use of antithrombotics/antiplatelets; Z87.891 Personal history of nicotine dependence
CPT/HCPCS: 70450; 96374; 96375; 99284; J0780; J1200; J7030

== ENCOUNTER 2017-12-18 14:45 | Observation (INO) | payer OTHER ==
[~2017-12-18] VITALS: Ht 177.8 cm; Wt 85.0 kg
[~2017-12-18 14:45] MED LIST changes: -APIX5TAB PO; -HYDR12.57 PO; +HYDR25TA5 PO; -ZOFR4TAB PO
[2017-12-18 14:55] VITALS: BP 138/95; PULSE 96; RESP 19; TEMP 98.2; O2SAT 94
[2017-12-18 15:07] VITALS: BP_SYST 138; BP_SYST 140; BP_DIAS 104; BP_DIAS 95
[2017-12-18] MEDS ORDERED: SODIUM CHLORIDE 0.9% FLUSH 10 ML FLUSH IVF PRN (15:15)
--- NOTE | 2017-12-18 15:40 | RADRPT ---
EXAM DATE/TIME: 12/18/2017 15:21 [place] COMPARISON: No previous studies available for comparison. INDICATIONS : Left sided chest pain. MEDICAL HISTORY : Chronic obstructive pulmonary disease. SURGICAL HISTORY : Cardiac cath. ENCOUNTER: Initial ACUITY: 1 day PAIN SCORE: 4/10 LOCATION: chest FINDINGS: PA and lateral views of the chest demonstrate the lungs to be symmetrically aerated without evidence of mass, infiltrate or effusion. The cardiomediastinal contours are unremarkable. Osseous structure s are intact. CONCLUSION: Negative for an acute process. Paco Velazquez MD FACR on December 18, 2017 at 15:38 Board Certified Radiologist. This report was verified electronically.
[2017-12-18 15:48] LABS: AUTOMATED NEUTROPHIL # 1.9 TH/MM3 (1.8-7.7); BASOPHIL % 0.6 % (0.0-2.0); EOSINOPHIL % 0.3 % (0.0-4.0); HEMOGLOBIN 16.1 GM/DL (13.0-17.0); LYMPH % 52.2 % (9.0-44.0); LYMPHOCYTE # 2.7 TH/MM3 (1.0-4.8); MEAN CELL VOLUME 90.4 FL (80.0-100.0); MEAN CORPUSCULAR HEMOGLOBIN 30.3 PG (27.0-34.0); MEAN CORPUSCULAR HGB CONC 33.6 % (32.0-36.0); MEAN PLATELET VOLUME 7.1 FL (7.0-11.0); MONO % 10.3 % (0.0-8.0); MONOCYTE # 0.5 TH/MM3 (0-0.9); NEUT % 36.6 % (16.0-70.0); PLATELET COUNT 188 TH/MM3 (150-450); RED BLOOD COUNT 5.31 MIL/MM3 (4.50-5.90); RED CELL DISTRIBUTION WIDTH 15.3 % (11.6-17.2); WHITE BLOOD COUNT 5.2 TH/MM3 (4.0-11.0)
[2017-12-18 15:50] LABS: INTERNATIONAL NORMALIZED RATIO 1.1 RATIO; PROTHROMBIN TIME - PATIENT 10.8 SEC (9.8-11.6)
[2017-12-18 15:58] VITALS: BP 120/89; PULSE 79; RESP 12; O2SAT 98
[2017-12-18 16:00] LABS: AST (GOT) 34 U/L (15-37); BICARBONATE 26.3 MEQ/L (21.0-32.0); BLOOD UREA NITROGEN 10 MG/DL (7-18); CHLORIDE 105 MEQ/L (98-107); CREATININE 0.91 MG/DL (0.60-1.30); GLOMERULAR FILTRATION RATE 108 ML/MIN (>89); GLUCOSE,RANDOM 81 MG/DL (74-106); MAGNESIUM 1.9 MG/DL (1.5-2.5); SODIUM (NA) 144 MEQ/L (136-145)
[2017-12-18 16:01] LABS: ALT (GPT) 38 U/L (12-78)
[2017-12-18 16:05] LABS: ALKALINE PHOSPHATASE 75 U/L (45-117); TOTAL BILIRUBIN ADULT 0.6 MG/DL (0.2-1.0); TOTAL PROTEIN 7.5 GM/DL (6.4-8.2)
[2017-12-18 16:06] LABS: TROPONIN I 0.02 NG/ML (0.02-0.05)
[2017-12-18] MEDS ORDERED: IOHEXOL 350 MG/ML 100 ML BTL (for Cath Lab) OTHER ONE (16:27)
--- NOTE | 2017-12-18 16:31 | PD ---
HPI Chief Complaint: Chest Pain Time Seen by Provider: 15:05 Travel History International Travel<30 days: No Contact w/Intl Traveler<30days: No Traveled to known affect area: No History of Present Illness HPI 47-year-old man, presents to the emergency department complaining of chest pain. States that sharp chest pain ongoing for the past couple days, lasting hours at a time, he describes "feels like a bowel ringing". Worse with exertion. Some associated shortness of breath. Said some nausea and vomiting with it as well. No lower extremity edema. Denies having previous similar symptoms. Does have a history of A. fib and is on Eliquis, has had many strokes in the past. Also has hypertension and borderline diabetes. He reports having a heart cath 1-2 years ago that showed mild disease with Dr. bajwa. No stents. He also has COPD. Otherwise had been feeling well before this. History Past Medical History Narrative Medical A. fib, on Eliquis History of TIAs and mini strokes, no stroke or permanent symptoms Hyperlipidemia Hypertension Borderline diabetes Tetanus Vaccination: > 5 Years Influenza Vaccination: No Social History Alcohol Use: No Tobacco Use: Yes (</ PPD) Allergies-Medications (Allergen,Severity, Reaction): Coded Allergies: lisinopril (Verified Allergy, Severe, Anaphylaxis, 12/18/17) Uncoded Allergies: JUST FOR MEN (Allergy, Severe, Shortness of Breath, 06/06/17) Reported Meds & Prescriptions Reported Meds & Active Scripts Active Plavix (Clopidogrel Bisulfate) 75 Mg Tab 75 Mg PO DAILY Lopressor (Metoprolol Tartrate) 50 Mg Tab 50 Mg PO Q12HR Aspirin Low Strength (Aspirin) 81 Mg Chew 81 Mg PO DAILY Atorvastatin (Atorvastatin Calcium) 80 Mg Tab 80 Mg PO DAILY Reported Isosorbide Mononitrate ER (Isosorbide Mononitrate) 60 Mg Tab 60 Mg PO DAILY Chantix (Varenicline) 0.5 Mg Tab 0.5 Mg PO DAILY Ventolin Hfa 18 GM Inh (Albuterol Sulfate) 90 Mcg/Act Aer 2 Puff INH Q4-6H PRN Review of Systems Except as stated in HPI: all other systems reviewed are Neg Physical Exam Narrative GENERAL: Well-appearing 47-year-old man, no acute distress. SKIN: Focused skin assessment warm/dry. HEAD: Atraumatic. Normocephalic. EYES: Pupils equal and round. No scleral icterus. No injection or drainage. ENT: No nasal bleeding or discharge. Mucous membranes pink and moist. NECK: Trachea midline. No JVD. CARDIOVASCULAR: Regular rate and rhythm. No murmur appreciated. RESPIRATORY: No accessory muscle use. Clear to auscultation. Breath sounds equal bilaterally. GASTROINTESTINAL: Abdomen soft, non-tender, nondistended. Hepatic and splenic margins not palpable. MUSCULOSKELETAL: No obvious deformities. No clubbing. No cyanosis. No edema. NEUROLOGICAL: Awake and alert. No obvious cranial nerve deficits. Motor grossly within normal limits. Normal speech. PSYCHIATRIC: Appropriate mood and affect; insight and judgment normal. Data Data Last Documented VS Vital Signs Date Time Temp Pulse Resp B/P (MAP) Pulse Ox O2 Delivery O2 Flow Rate FiO2 12/18/17 15:58 79 12 120/89 (99) 98 Nasal Cannula 2.00 12/18/17 14:55 98.2 Orders Orders Electrocardiogram (12/18/17 15:05) Complete Blood Count With Diff (12/18/17 15:05) Comprehensive Metabolic Panel (12/18/17 15:05) Magnesium (Mg) (12/18/17 15:05) Prothrombin Time / Inr (Pt) (12/18/17 15:05) Act Partial Throm Time (Ptt) (12/18/17 15:05) Troponin I (12/18/17 15:05) Lipase (12/18/17 15:05) Ecg Monitoring (12/18/17 15:05) Bilateral Bp Monitoring (12/18/17 15:05) Iv Access Insert/Monitor (12/18/17 15:05) Oximetry (12/18/17 15:05) Oxygen Administration (12/18/17 15:05) Sodium Chloride 0.9% Flush (Ns Flush) (12/18/17 15:15) Chest, Pa & Lat (12/18/17 15:05) Labs Laboratory Tests Test 12/18/17 15:05 White Blood Count 5.2 TH/MM3 Red Blood Count 5.31 MIL/MM3 Hemoglobin 16.1 GM/DL Hematocrit 48.0 % Mean Corpuscular Volume 90.4 FL Mean Corpuscular Hemoglobin 30.3 PG Mean Corpuscular Hemoglobin Concent 33.6 % Red Cell Distribution Width 15.3 % Platelet Count 188 TH/MM3 Mean Platelet Volume 7.1 FL Neutrophils (%) (Auto) 36.6 % Lymphocytes (%) (Auto) 52.2 % Monocytes (%) (Auto) 10.3 % Eosinophils (%) (Auto) 0.3 % Basophils (%) (Auto) 0.6 % Neutrophils # (Auto) 1.9 TH/MM3 Lymphocytes # (Auto) 2.7 TH/MM3 Monocytes # (Auto) 0.5 TH/MM3 Eosinophils # (Auto) 0.0 TH/MM3 Basophils # (Auto) 0.0 TH/MM3 CBC Comment DIFF FINAL Differential Comment Prothrombin Time 10.8 SEC Prothromb Time International Ratio 1.1 RATIO Activated Partial Thromboplast Time 23.7 SEC Blood Urea Nitrogen 10 MG/DL Creatinine 0.91 MG/DL Random Glucose 81 MG/DL Total Protein 7.5 GM/DL Albumin 4.0 GM/DL Calcium Level 9.0 MG/DL Magnesium Level 1.9 MG/DL Alkaline Phosphatase 75 U/L Aspartate Amino Transf (AST/SGOT) 34 U/L Alanine Aminotransferase (ALT/SGPT) 38 U/L Total Bilirubin 0.6 MG/DL Sodium Level 144 MEQ/L Potassium Level 3.5 MEQ/L Chloride Level 105 MEQ/L Carbon Dioxide Level 26.3 MEQ/L Anion Gap 13 MEQ/L Estimat Glomerular Filtration Rate 108 ML/MIN Troponin I 0.02 NG/ML Lipase 60 U/L MDM Medical Decision Making Medical Screen Exam Complete: Yes Emergency Medical Condition: Yes Interpretation(s) My review of EKG: A. fib, rate of 89, leftward axis, inferior anterior precordial Q waves suggestive of old inferior DE, no definite evidence of acute ischemia. LABS: CBC is unremarkable. CMP is unremarkable Troponins negative Lipase is normal Coags are unremarkable. Chest x-ray negative. Differential Diagnosis ACS, chest wall pain, atypical chest pain, pericarditis, reflux,PE, dissection, other Narrative Course 39-year-old man, will risk factors, here with chest pain. Mild CAD in the past , no previous stents. Patient's moderate risk. Recommend chest pain center for further evaluation. No evidence of DVT or PE. No evidence of heart failure dissection. Diagnosis Primary Impression: Chest pain Admitting Information Admitting Physician Requests: Vladimir Pereira MD Dec 18, 2017 16:31
[2017-12-18 17:22] VITALS: BP 126/92; PULSE 80; RESP 15; O2SAT 98
[2017-12-18] MEDS ORDERED: SODIUM CHLORIDE 0.9% FLUSH 10 ML FLUSH IV FLUSH PRN (17:45)
[2017-12-18 18:30] VITALS: BP 134/99; PULSE 74; RESP 16; TEMP 98; O2SAT 96
[2017-12-18 19:26] LABS: TROPONIN I 0.03 NG/ML (0.02-0.05)
[2017-12-18 19:38] VITALS: BP 128/99; PULSE 75; RESP 16; TEMP 97.6; O2SAT 95
[2017-12-18] MEDS ORDERED: MORPHINE SULFATE 4 MG/ML INJ IV PUSH PRN (20:15)
[2017-12-18] MEDS: SODIUM CHLORIDE 0.9% FLUSH 10 ML FLUSH IV FLUSH SCH (20:19)
[2017-12-18] MEDS ORDERED: NITROGLYCERIN 2% OINT 1 GM PACKET TOPICAL ONE (20:30)
[2017-12-18 21:41] LABS: TROPONIN I 0.03 NG/ML (0.02-0.05)
[2017-12-19] MEDS ORDERED: NITROGLYCERIN 2% OINT 1 GM PACKET TOPICAL SCH
[2017-12-19 00:47] VITALS: O2SAT 95
[2017-12-19 03:11] VITALS: PULSE 79
[2017-12-19 03:31] VITALS: BP 136/99; PULSE 79; RESP 18; TEMP 97.7; O2SAT 96
[2017-12-19] MEDS: NITROGLYCERIN 2% OINT 1 GM PACKET TOPICAL SCH ×3 (03:33→14:56)
[2017-12-19 04:27] VITALS: PULSE 74
[2017-12-19 07:15] VITALS: PULSE 88
[2017-12-19 07:46] VITALS: BP 141/95; PULSE 90; RESP 20; TEMP 98.2; O2SAT 95
[2017-12-19] MEDS: SODIUM CHLORIDE 0.9% FLUSH 10 ML FLUSH IV FLUSH SCH (08:46)
--- NOTE | 2017-12-19 08:54 | HHI.HP ---
HPI Primary Care Physician Unknown Chief Complaint Chest pain History of Present Illness This is a 47-year-old male history of CAD, hypertension, hyperlipidemia presents to ED to be evaluated for chest discomfort. States he developed a squeezing in the center of his chest yesterday lasting about 30 minutes. Found nothing to worsen it. Nothing really seemed to help it. At some shortness of breath and nausea. No diaphoresis. He follows Dr. Martinez of cardiology and states he has an appointment with him next month. Had a cardiac catheterization June of last year revealed disease but without intervention. Review of Systems General: Patient denies fevers, chills, and recent travel. HEENT: Patient denies headache, sore throat, difficulty swallowing. Cardiovascular: Has the chest discomfort as mentioned above. Denies sensation of heart beating rapidly or irregularly. No syncope. Denies diaphoresis. Respiratory: He was short of breath. Denies inspirational chest discomfort. Denies coughing wheezing or hemoptysis. GI: He was nauseous. Patient denies vomiting, diarrhea, abdominal pain, bloody stools. Musculoskeletal: Patient denies joint pain or edema. Denies calf pain or edema. Neurovascular: Patient denies numbness, tingling, weakness in extremities. Denies headache. Endocrine: Denies polyuria and polydipsia. Hematologic: Denies easy bruising. Skin: Denies rash or itching. Past Family Social History Allergies: Coded Allergies: lisinopril (Verified Allergy, Severe, Anaphylaxis, 12/18/17) Uncoded Allergies: JUST FOR MEN (Allergy, Severe, Shortness of Breath, 06/06/17) Past Medical History CAD, hypertension, hyperlipidemia, stated borderline diabetes. Past tobacco abuse. Past Surgical History Cardiac catheterization without intervention June last year. Reported Medications Reported Meds & Active Scripts Active Plavix (Clopidogrel Bisulfate) 75 Mg Tab 75 Mg PO DAILY Lopressor (Metoprolol Tartrate) 50 Mg Tab 50 Mg PO Q12HR Aspirin Low Strength (Aspirin) 81 Mg Chew 81 Mg PO DAILY Atorvastatin (Atorvastatin Calcium) 80 Mg Tab 80 Mg PO DAILY Reported Isosorbide Mononitrate ER (Isosorbide Mononitrate) 60 Mg Tab 60 Mg PO DAILY Chantix (Varenicline) 0.5 Mg Tab 0.5 Mg PO DAILY Ventolin Hfa 18 GM Inh (Albuterol Sulfate) 90 Mcg/Act Aer 2 Puff INH Q4-6H PRN Active Ordered Medications Current Medications Medications (Trade) Dose Ordered Sig/Kate Route Start Time Stop Time Status Last Admin (NS Flush) 2 ml UNSCH PRN IV FLUSH 12/18/17 17:45 (NS Flush) 2 ml BID IV FLUSH 12/18/17 21:00 12/18/17 20:19 (Morphine Inj) 4 mg Q6H PRN IV PUSH 12/18/17 20:15 12/18/17 20:19 (Nitroglycerin 2% Oint) 1 inch Q6H TOPICAL 12/19/17 03:00 12/19/17 03:33 (Aspirin Chew) 81 mg DAILY PO 12/19/17 09:00 (Lipitor) 80 mg DAILY PO 12/19/17 09:00 (Plavix) 75 mg DAILY PO 12/19/17 09:00 (Imdur) 60 mg DAILY PO 12/19/17 09:00 (Lopressor) 50 mg Q12HR PO 12/19/17 09:00 Family History There is family history of CAD. Social History Quit smoking. Denies alcohol or illicit drug use. Physical Exam Vital Signs Vital Signs Date Time Temp Pulse Resp B/P (MAP) Pulse Ox O2 Delivery O2 Flow Rate FiO2 12/19/17 07:46 98.2 90 20 141/95 (110) 95 12/19/17 07:15 88 12/19/17 04:27 74 12/19/17 03:31 97.7 79 18 136/99 (111) 96 12/19/17 03:11 79 12/19/17 00:47 95 Nasal Cannula 2.00 12/18/17 20:49 16 12/18/17 19:38 97.6 75 16 128/99 (109) 95 12/18/17 18:30 98.0 74 16 134/99 (111) 96 12/18/17 18:06 12/18/17 17:22 80 15 126/92 (103) 98 Nasal Cannula 2.00 12/18/17 15:58 79 12 120/89 (99) 98 Nasal Cannula 2.00 12/18/17 15:07 Nasal Cannula 2.00 12/18/17 15:07 138/95 (109) 140/104 (116) 12/18/17 14:55 94 Room Air 12/18/17 14:55 98.2 96 19 138/95 109 94 Physical Exam GENERAL: This is a well-nourished, well-developed patient, in no apparent distress. Patient speaks in clear complete sentences. Patient is pleasant. HEENT: Head is atraumatic and normocephalic. Neck is supple without lymphadenopathy and trachea is midline. No JVD or carotid bruits. CARDIOVASCULAR: Regular rate and rhythm without murmurs, gallops, or rubs. RESPIRATORY: Clear to auscultation. Breath sounds equal bilaterally. No wheezes , rales, or rhonchi. Chest wall is nontender. No use of accessory muscles. GASTROINTESTINAL: Abdomen is nontender, nondistended. Abdomen soft. No obvious pulsatile mass or bruit. No CVA tenderness. Strong femoral pulses bilaterally. Normal bowel sounds in all quadrants. MUSCULOSKELETAL: Patient is moving upper and lower extremities freely. No calf tenderness or edema, no Homans sign. Strong pulses in upper and lower extremities. NEUROLOGICAL: Patient is alert and oriented. Cranial nerves 2-12 are grossly intact. No focal deficits and speech is clear. SKIN: No rash and turgor is normal. Laboratory Laboratory Tests Test 12/18/17 15:05 12/18/17 18:20 12/18/17 21:00 White Blood Count 5.2 Red Blood Count 5.31 Hemoglobin 16.1 Hematocrit 48.0 Mean Corpuscular Volume 90.4 Mean Corpuscular Hemoglobin 30.3 Mean Corpuscular Hemoglobin Concent 33.6 Red Cell Distribution Width 15.3 Platelet Count 188 Mean Platelet Volume 7.1 Neutrophils (%) (Auto) 36.6 Lymphocytes (%) (Auto) 52.2 Monocytes (%) (Auto) 10.3 Eosinophils (%) (Auto) 0.3 Basophils (%) (Auto) 0.6 Neutrophils # (Auto) 1.9 Lymphocytes # (Auto) 2.7 Monocytes # (Auto) 0.5 Eosinophils # (Auto) 0.0 Basophils # (Auto) 0.0 CBC Comment DIFF FINAL Differential Comment Prothrombin Time 10.8 Prothromb Time International Ratio 1.1 Activated Partial Thromboplast Time 23.7 Blood Urea Nitrogen 10 Creatinine 0.91 Random Glucose 81 Total Protein 7.5 Albumin 4.0 Calcium Level 9.0 Magnesium Level 1.9 Alkaline Phosphatase 75 Aspartate Amino Transf (AST/SGOT) 34 Alanine Aminotransferase (ALT/SGPT) 38 Total Bilirubin 0.6 Sodium Level 144 Potassium Level 3.5 Chloride Level 105 Carbon Dioxide Level 26.3 Anion Gap 13 Estimat Glomerular Filtration Rate 108 Troponin I 0.02 0.03 0.03 Lipase 60 Total Creatine Kinase 463 417 Creatine Kinase MB 5.3 5.1 Creatine Kinase MB % 1.1 1.2 Result Diagram: 12/18/17 1505 12/18/17 1505 Imaging Last 48 hours Impressions Chest X-Ray 12/18/17 1505 Signed Impressions: Service Date/Time: Monday, December 18, 2017 15:21 - CONCLUSION: Negative for an acute process. Paco Velazquez MD FACR Course EKGs are sinus rhythm with lateral T-wave changes. Caprini VTE Risk Assessment Caprini VTE Risk Assessment: No/Low Risk (score <= 1) Caprini Risk Assessment Model Point Value = 1 Point Value = 2 Point Value = 3 Point Value = 5 Age 41-60 Minor surgery BMI > 25 kg/m2 Swollen legs Varicose veins or History of unexplained or recurrent spontaneous Oral contraceptives or hormone replacement Sepsis (< 1 month) Serious lung disease, including pneumonia (< 1 month) Abnormal pulmonary function Acute myocardial infarction Congestive heart failure (< 1 month) History of inflammatory bowel disease Medical patient at bed rest Age 61-74 Arthroscopic surgery Major open surgery (> 45 min) Laparoscopic surgery (> 45 min) Malignancy Confined to bed (> 72 hours) Immobilizing plaster cast Central venous access Age >= 75 History of VTE Family history of VTE Factor V Leiden Prothrombin [id number] Lupus anticoagulant Anticardiolipin antibodies Elevated serum homocysteine Heparin-induced thrombocytopenia Other congenital or acquired thrombophilia Stroke (< 1 month) Elective arthroplasty Hip, pelvis, or leg fracture Acute spinal cord injury (< 1 month) Prophylaxis Regimen Total Risk Factor Score Risk Level Prophylaxis Regimen 0-1 Low Early ambulation 2 Moderate Order ONE of the following: *Sequential Compression Device (SCD) *Heparin 5000 units SQ BID 3-4 Higher Order ONE of the following medications: *Heparin 5000 units SQ TID *Enoxaparin/Lovenox 40 mg SQ daily (WT < 150 kg, CrCl > 30 mL/min) *Enoxaparin/Lovenox 30 mg SQ daily (WT < 150 kg, CrCl > 10-29 mL/min) *Enoxaparin/Lovenox 30 mg SQ BID (WT < 150 kg, CrCl > 30 mL/min) AND/OR *Sequential Compression Device (SCD) 5 or more Highest Order ONE of the following medications: *Heparin 5000 units SQ TID (Preferred with Epidurals) *Enoxaparin/Lovenox 40 mg SQ daily (WT < 150 kg, CrCl > 30 mL/min) *Enoxaparin/Lovenox 30 mg SQ daily (WT < 150 kg, CrCl > 10-29 mL/min) *Enoxaparin/Lovenox 30 mg SQ BID (WT < 150 kg, CrCl > 30 mL/min) AND *Sequential Compression Device (SCD) Assessment and Plan Assessment and Plan * Chest pain: Patient has history of CAD and his symptoms are suggestive of unstable angina. He was seen by Dr. Ephraim Hinojosa of cardiology in the chest pain center. He had serial cardiac enzymes and EKGs for ruling out purposes. There were some lateral T-wave changes. He will be restarted on his medications. Dr. Hinojosa spoke with Dr. Martinez and Dr. Martinez will be taking the patient to the [facility] later this morning. Patient is agreeable to this plan. * CAD: This will be reassessed with cardiac catheterization with Dr. Martinez today. * Hyperlipidemia: Resume medication. * Hypertension: Resume the medication. Kayden Bartlett Dec 19, 2017 08:54
[2017-12-19] MEDS ORDERED: SODIUM CHLOR 0.9% 1000 ML INJ 1,000 ML IV SCH (09:00)
[2017-12-19] MEDS ORDERED: ATORVASTATIN 80 MG TAB PO SCH (09:00)
[2017-12-19] MEDS ORDERED: CLOPIDOGREL 75 MG TAB PO SCH (09:00)
[2017-12-19] MEDS ORDERED: ASPIRIN 81 MG CHEW TAB PO SCH (09:00)
[2017-12-19] MEDS ORDERED: METOPROLOL TARTRATE 50 MG TAB PO SCH (09:00)
[2017-12-19] MEDS ORDERED: ISOSORBIDE MONONITRATE 60 MG CR TAB (IMDUR) PO SCH (09:00)
[2017-12-19] MEDS ORDERED: MIDAZOLAM HCL 2 MG/2 ML VIAL ONE (09:37)
[2017-12-19] MEDS ORDERED: LIDOCAINE HCL 1% PF 30 ML VIAL ONE (09:41)
[2017-12-19] MEDS ORDERED: STERILE WATER FOR INJECTION 10 ML VIAL ONE (10:19)
[2017-12-19] MEDS ORDERED: BIVALIRUDIN 250 MG VIAL ONE ×2 (10:19→10:24)
[2017-12-19] MEDS ORDERED: CLOPIDOGREL 300 MG TAB ONE (10:32)
[2017-12-19] MEDS ORDERED: ISOS60TA PO (10:41)
--- NOTE | 2017-12-19 10:42 | CATHPROC ---
[facility] HIS Report Study Information Study Number Admission Scheduled Start Study Start [id number] Dec 18 2017 4:26PM 12/19/2017 Dec 19 2017 9:26AM [place] Service Cardiac Catheterization Admit Source Facility Department Emergency department [facility] - Chief Passenger Ship Steward/Stewardess Physician and Clinical Staff Initial Vladimir Vaughan RN, Lorenza Adkins RN Other cathlab, cathlab Recorder Corona Montemayor RCIS(BS) Scrub Vanessa Carr,RT(R) (BS) Procedures Performed Procedure Location (Site) Vessel Name Coronary Angiograms LCA Left Coronary Coronary Angiograms RCA Right Coronary Drug Eluting Inflatio OM1 Prox CIRC L Heart Cath Wire insertion Radial (right) Radial Art. Equipment Time Mobile Product Manager Description Size Mfg Part Number Used/Scraped COPILOT VALVE, BLEEDBACK [id number] 10:22 [employer] Used CONTROL *[id number] TRANSDUCER, TRUWAVE [id number] 09:27 MCCONNELL JORDAN * Used W/STOCKCOCK *[id number] *[id number] *[id number] *[id number] 09:27 [employer] INDUSTRIES PACK, CCL CUSTOM * Used *[id number] 09:27 [employer]boom SUPPORT, ARTERIAL ADULT [id number] *[id number] Used [id number] 09:27 [employer] PACER PEN, SKIN DUAL W/ RULER * Used *[id number] 09:59 MED[employer]ON[employer] JR 5.0 DXTERITY CATHETER fr 5 [id number] Used 10:25 [employer] STENT, 2.25 15MM JYOTI 2.25 15MM [id number] Used [id number] 10:21 [employer] 30 JESSICA INDEFLATOR Used *[id number] BAND, RADIAL COMPRESSION TR [id number] 10:35 [employer] MEDICAL 29CM Used LARGE 29 *[id number] SHEATH, FR6 RADIAL PRELUDE 09:27 [employer] FR 6 [id number] Used EASE 11CM [id number] 09:27 [employer] WIRE, EXCHANGE 260CM 3MMJ 260CM Used *[id number] 09:27 [employer]ED OMNIPAQUE, 350 MG, 150ML 150ML [id number] Used 10:30 [employer]ED OMNIPAQUE, 350 MG, 150ML 150ML [id number] Used 10:30 [employer]ED OMNIPAQUE, 350 MG, 150ML 150ML [id number] Used [id number] 09:27 [facility] [facility] BLANKET,WARM AIR CCL * Used *[id number] WIRE, RUNTHROUGH NS FLOPPY [id number] 10:19 [employer] 180CM Used .014 180CM *[id number] Equipment Model, Serial, Lot Number and Expiration Data Description Model Number Serial Number Lot Number Expiration Date JR 5.0 DXTERITY CATHETER [id number] 04-03-2020 STENT, 2.25 15MM JYOTI [id number] 09-11-2019 History: Current Medications Medication Dosage/Unit Route Frequency Last Date/Time Taken Beta Mckenna Statins (any) ASA PLAVIX Imdur ELIQUIS History: Allergies Allergy Reaction lisinopril Anaphylaxis JUST FOR MEN Shortness of Breath History: Risk Factors Family History of Hypertension Dyslipidemia Previous [place] Previous Heart Failure Premature CAD Yes Yes No Yes No Prior Valve Prior PCI Prior CABG Surgery No No No Cerebrovascular Peripheral Artery Chronic Lung On Dialysis Diabetes Diabetes Therapy Disease Disease Disease No Yes No Yes Yes Diet History: Symptoms/Diagnosis Selection Items Chest pain History: Stress Tests Stress or Imaging Studies Performed No History: Arrhythmias Selection Items Atrial fibrillation History: Other Disease Selection Items COPD HTN History: [place]/CV Data Previous Cath Date 06/07/2017 History: Other Current Smoker Method Packs a Day Years Used Pack Years Yes Cigarettes 1 15 15 Labs Hgb (g/dl) Hct (%) WBC (l/cumm) Platelets (thousands) 11.60-17.00 35.00-51.00 4.00-11.00 150.00-450.00 16.1 48 5.2 188 Glucose (mg/dl) BUN (mg/dl) Creatinine (mg/dl) BUN:Creatinine (1:x) 74.00-106.00 7.00-18.00 0.50-1.30 10.00-20.00 81 10 0.9 11.1 Na (meq/l) K (meq/l) 136.00-145.00 3.50-5.10 144 3.5 INR (PTT:PT) 0.90-1.10 1.1 Troponin I (ng/ml) CPK (u/l) CPK-MB (ng/ML) 0.02-0.05 26.00-308.00 0.50-3.60 0.03 417 5.1 Medication Medication Total Dose (Bolus/Oral) Medication Total Dosage/Unit 1% XYLOCAINE 3 mL ANGIOMAX BOLUS 13 mL FENTANYL 50 mcg HEPARIN 5000 units NTG (IC) 200 mcg PLAVIX 600 mg VERSED 2 mg Medications (Bolus/Oral) Medication Time Given Dosage/Unit Administered By Reason VERSED 12/19/2017 9:58:02 AM 2 mg Lorenza Macias 2 mg VERSED given in lab by Lorenza Macias RN in Left Antecubital via Peripheral IV. Ordered by Vladimir Guevara. FENTANYL 12/19/2017 9:58:10 AM 50 mcg Lorenza Macias 50 mcg FENTANYL given in lab by Lorenza Macias RN in Left Antecubital via Peripheral IV. Ordered by Vladimir Martinez. 1% XYLOCAINE 12/19/2017 9:59:05 AM 3 mL Vladimir Martienz 3 mL 1% XYLOCAINE given in lab by Vladimir Martinez in Right Radial via Subcutaneous. NTG (IC) 12/19/2017 10:00:09 AM 200 mcg Vladimir Martinez 200 mcg NTG (IC) given in lab by Vladimir Martinez in Right Radial via Intra-coronary. HEPARIN 12/19/2017 10:00:23 AM 5000 units Vladimir Martinez 5000 units HEPARIN given in lab by Vladimir Martinez in Right Radial via Peripheral IV. ANGIOMAX BOLUS 12/19/2017 10:29:08 AM 13 mL Lorenza Macias 13 mL ANGIOMAX BOLUS given in lab by Lorenza Macias RN in Left Antecubital via Peripheral IV. Order ed by Vladimir Martinez. PLAVIX 12/19/2017 10:40:30 AM 600 mg Lorenza Macias 600 mg PLAVIX given in lab by Lorenza Macias RN via Oral. Ordered by Vladimir Martinez. Medication (Drip) Medication Time Given Dosage/Unit Concentration/Unit Diluent (ml) Solutio n ANGIOMAX DRIP 12/19/2017 10:30:09 AM 1.75 mg/kg/hr 250 mg 50 NaCl .9 1.75 mg/kg/hr ANGIOMAX DRIP given in lab by Lorenza Macias RN in Left Antecubital via Peripheral IV . Pump/Drip Flow = 29.75 ml/hr using NaCl .9 with a concentration of 250 mg in 50 ml. Ordered by Vladimir Martinez. IV Solutions 12/19/2017 9:26:24 AM 0 mL (IV) 500 NaCl .9 Patient arrived on IV Solutions given by cathlab, cathlab in Left Antecubital via Peripheral IV. Pump /Drip Flow = 20 ml/hr using NaCl .9. Ordered by Vladimir Martinez. Initial Case Assessment Cardiovascular HR Rhythm NIBP Chest Pain 88 afib 145/84 0 Edema Present Skin color Skin None Normal Warm Dry Circulatory - Right Pulses Dorsalis Pedis Femoral Radial 2 2 2 Scale (0,1,2,3,4,d) Circulatory - Left Pulses Dorsalis Pedis Femoral Radial 2 2 Scale (0,1,2,3,4,d) Neurological State Oriented to time-place- Alert Moves all extremities person Respiration - General Respiration Rate SpO2 (%) (B/min) 15 96 Final Case Assessment Cardiovascular HR Rhythm NIBP Chest Pain 82 afib 125/87 0 Edema Present Skin color Skin None Normal Warm Dry Circulatory - Right Pulses Dorsalis Pedis Femoral Radial 2 2 2 Scale (0,1,2,3,4,d) Circulatory - Left Pulses Dorsalis Pedis Femoral Radial 2 2 Scale (0,1,2,3,4,d) Neurological State Oriented to time-place- Alert Moves all extremities person Respiration - General Respiration Rate SpO2 (%) (B/min) 15 96 Chronological Log Time Study Chronological Log 9:26:15 Patient arrived via Bed. 9:26:16 Patient Name, D.O.B, / Armband Verified By R.N. 9:26:17 Consent signed by the physician and the patient and verified by the Chief Passenger Ship Steward/Stewardess staff. 9:26:17 Pre-op and post- op instructions given; patient acknowledges understanding of instructions. 9:26:18 Verbal Stimulation=2 Physical Stimulation=2 Airway=2 Respiration=2 TOTAL=8. (0=absent, 1=li mited, 2=present) 9:26:19 Presedation assessment performed by Chief Passenger Ship Steward/Stewardess RN. 9:26:20 Immediate Presedation assesment performed by physician. 9:26:21 Patient has been NPO for More than 6Hrs. 9:26:21 Skin Breakdown- none per patient 9:26:22 Patient Warmer Placed on the Table. 9:26:23 Tommy Prominences Protected 9:26:24 A # 20 IV was noted in the Antecubital (left). Grade = 0 Patient arrived on IV Solutions given by cathlabyolanda in Left Antecubital via Peripheral IV . Pump/Drip Flow = 20 9:26:24 ml/hr using NaCl .9. Ordered by Vladimir Martinez. 9:26:25 History and physical on the chart or being dictated. Vitals capture started with the following parameters, Patient=Adult, Interval=5 min, Initial Pr cyrfhu=014 mmHg, 9:40:05 Deflation Rate=5 mmHg, Cuff placed on Right Ankle Assessment: Initial Case, HR=88 BPM, Rhythm=afib, NJXX=502/84 mmhg, Chest Pain=0, Edema=None, Color=Normal, Skin = Warm, Dry Right Pulses: Keshawn Ped=2, Femoral=2, Radial=2 9:40:20 Left Pulses: Keshawn Ped=2, Femoral=2 Neurological: State=Alert, Ox3, BETANCOURT Respiration: Resp=15 B/min, SpO2=96 % 9:40:22 Reference ECG taken 9:40:39 HR=84 bpm, BMGP=881/84 mmhg, SpO2=94.0 %, Resp=15 B/min, Pain=0, Ken=10, Rodriguez=2 9:44:28 Right Radial and groin(s) prepped with 2% chlorhexidine, and draped after a 3 min. waiting t dale. 9:45:40 HR=78 bpm, BJSB=150/101 mmhg, SpO2=99 %, Resp=14 B/min, Pain=0, Ken=10, Rodriguez=2 9:50:20 MD paged 9:50:21 MD arrived. 9:50:39 HR=81 bpm, NUZJ=416/92 mmhg, SpO2=99 %, Resp=9 B/min, Pain=0, Ken=10, Rodriguez=2 9:51:21 Pressure channel 1 zeroed. 9:55:38 HR=87 bpm, KDSC=944/94 mmhg, SpO2=15 %, Resp=9 B/min, Pain=0, Ken=10, Rodriguez=2 9:58:00 Contrast Scanned 9:58:01 Immediate Presedation assesment performed by physician. 9:58:02 2 mg VERSED given in lab by Lorenza Macias, RN in Left Antecubital via Peripheral IV. Order ed by Vladimir Martinez. 9:58:10 50 mcg FENTANYL given in lab by Lorenza Macias RN in Left Antecubital via Peripheral IV. O rdered by Vladimir Martinez. Time Out. Correct patient, correct procedure, correct physician, power injector not loaded with contrast with surgical 9:58:16 team present. Time Out Concurred by MD and individual staff in procedure. 9:58:25 Case Start 9:59:05 3 mL 1% XYLOCAINE given in lab by Vladimir Martinez in Right Radial via Subcutaneous. 9:59:51 Access site was Right Radial Artery. A SHEATH, FR6 RADIAL PRELUDE EASE 11CM FR 6 was advanced into the Radial (right) using the Perc utaneous :59 technique. 10:00:09 200 mcg NTG (IC) given in lab by Vladimir Martinez in Right Radial via Intra-coronary. 10:00:23 5000 units HEPARIN given in lab by Vladimir Martinez in Right Radial via Peripheral IV. 10:00:39 HR=81 bpm, LNIO=658/82 mmhg, SpO2=97 %, Resp=14 B/min, Pain=0, Ken=10, Rodriguez=2 A JR 5.0 DXTERITY CATHETER fr 5 was advanced over a wire. OMNIPAQUE, 350 MG, 150ML 150ML was us ed for 10:01:00 injections. Recorded Pressure: LV, HR=98, Condition=Condition 1 10:01:53 (Left Ventricle) LV 119/15/19 10:02:19 The RCA was injected and visualized at various angles. OMNIPAQUE, 350 MG, 150ML 150ML used . After removing the current catheter a JL 3.5 INFINITI CATHETER FR 5 was advanced over a WIRE, E XCHANGE 260CM 10:02:48 3MMJ 260CM. 10:04:57 The LCA was injected and visualized at various angles. OMNIPAQUE, 350 MG, 150ML 150ML used . After removing the current catheter a JL 5.0 INFINITI CATHETER FR 6 was advanced over a WIRE, E XCHANGE 260CM 10:05:37 3MMJ 260CM. 10:05:38 HR=83 bpm, CNRU=381/93 mmhg, SpO2=92.0 %, Resp=14 B/min, Pain=0, Ken=10, Rodriguez=2 10:07:58 The LCA was injected and visualized at various angles. OMNIPAQUE, 350 MG, 150ML 150ML used . Recorded Pressure: Ao, HR=91, Condition=Condition 1 10:08:53 (Aorta) Ao 121/92/107 10:10:41 HR=86 bpm, BFAQ=221/81 mmhg, SpO2=97 %, Resp=13 B/min, Pain=0, Ken=10, Rodriguez=2 10:15:40 HR=80 bpm, WSHT=742/87 mmhg, Resp=14 B/min, Pain=0, Ken=10, Rodriguez=2 10:20:41 HR=81 bpm, VLRX=683/85 mmhg, SpO2=94.0 %, Resp=15 B/min, Pain=0, Ken=10, Rodriguez=2 After removing the current catheter a XB 4.0 GUIDE CATHETER FR 6 was advanced over a WIRE, EXCH NADEGE 260CM 10:21:37 3MMJ 260CM. 10:25:40 HR=81 bpm, YCHV=220/87 mmhg, SpO2=98 %, Resp=14 B/min, Pain=0, Ken=10, Rodriguez=2 10:27:04 A WIRE, RUNTHROUGH NS FLOPPY .014 180CM 180CM was inserted via Radial (right). 10:27:12 Interventional wire has crossed the lesion 13 mL ANGIOMAX BOLUS given in lab by Lorenza Macias, RN in Left Antecubital via Peripheral IV. Ordered by Minor, 10:29:08 Vladimir. A STENT, 2.25 15MM JYOTI 2.25 15MM was advanced through a XB 4.0 GUIDE CATHETER FR 6 over a WIRE , 10:29:21 RUNTHROUGH NS FLOPPY .014 180CM 180CM. A STENT, 2.25 15MM JYOTI 2.25 15MM was deployed using a 30 JESSICA INDEFLATOR at 18 atmospheres for 15 seconds 10:29:32 in the OM1 Prox. 10:30:01 Delivery device removed 1.75 mg/kg/hr ANGIOMAX DRIP given in lab by Lorenza Macias, RN in Left Antecubital via Periphe ral IV. Pump/Drip 10:30:09 Flow = 29.75 ml/hr using NaCl .9 with a concentration of 250 mg in 50 ml. Ordered by Germain Martinez. 10:30:41 HR=81 bpm, SAUI=129/87 mmhg, SpO2=95.0 %, Resp=12 B/min, Pain=0, Ken=10, Rodriguez=2 10:30:45 Wire removed 10:31:19 Catheter was removed 10:31:22 Case End Assessment: Final Case, HR=82 BPM, Rhythm=afib, LRHZ=691/87 mmhg, Chest Pain=0, Edema=None, Col or=Normal, Skin = Warm, Dry Right Pulses: Keshawn Ped=2, Femoral=2, Radial=2 10:31:30 Left Pulses: Keshawn Ped=2, Femoral=2 Neurological: State=Alert, Ox3, BETANCOURT Respiration: Resp=15 B/min, SpO2=96 % 10:31:40 Catheter(s) removed without difficulty 10:31:47 No case complications noted. 10:31:48 Cine recording checked. 10:31:49 Holding Area notified of successful intervention. 10:31:50 Bedside Report will be given. 10:31:51 Implantable Device card placed in patient's chart. 10:31:53 Verbal Stimulation=2 Physical Stimulation=2 Airway=2 Respiration=2 TOTAL=8. (0=absent, 1=li mited, 2=present) 10:32:00 A Left Heart Cath was performed. Radial Compression Device Used. 13 mLs of air placed in BAND, RADIAL COMPRESSION TR LARGE 29 29 CM. Affected 10:34:59 hand 96 % O2 saturation. 10:35:40 HR=80 bpm, RCHP=197/85 mmhg, Resp=13 B/min, Pain=0, Ken=10, Rodriguez=2 10:40:30 600 mg PLAVIX given in lab by Lorenza Macias, AMANDA via Oral. Ordered by Vladimir Martinez. 10:40:37 HR=87 bpm, UAWJ=065/91 mmhg, SpO2=96.0 %, Resp=15 B/min, Pain=0, Ken=10, Rodriguez=2 10:41:20 Patient moved to stretcher 10:41:24 Vitals capture stopped. End Study - Contrast Media Used In Study Contrast Total Opened (mL) Total Used (mL) Total Wasted (mL) Omnipaque 100 100 0 End Study - Maximum Contrast Load Max Contrast Load (mL) 472.2 End Study - Radiation Exposure Fluoro Time (minutes) 3.2 End Study - Patient Disposition Complications Transferred To Interventional Outcome No Chief Passenger Ship Steward/Stewardess Holding successful
[2017-12-19] MEDS ORDERED: BACITRACIN OINT 0.9 GM PKT TOP ONE (10:45)
[2017-12-19] MEDS ORDERED: CLOPIDOGREL 300 MG TAB PO ONE (10:45)
[2017-12-19] MEDS ORDERED: ACETAMINOPHEN 325 MG TAB PO PRN (10:45)
[2017-12-19] MEDS ORDERED: MISC INFORMATION XX ONE (10:45)
--- NOTE | 2017-12-19 10:48 | HHI.DS ---
Discharge Summary Admission Date Dec 18, 2017 at 16:26 Discharge Date: Dec 19, 2017 Admitting Diagnosis Chest pain (1) Chest pain ICD Codes: R07.9 - Chest pain, unspecified Status: Acute Procedures left heart cath percutaneous intervention first obtuse marginal branch CBC/BMP: 12/18/17 1505 12/18/17 1505 Significant Findings Laboratory Tests Test 12/18/17 15:05 12/18/17 18:20 12/18/17 21:00 Lymphocytes (%) (Auto) 52.2 % (9.0-44.0) Monocytes (%) (Auto) 10.3 % (0.0-8.0) Activated Partial Thromboplast Time 23.7 SEC (24.3-30.1) Lipase 60 U/L (73-393) Total Creatine Kinase 463 U/L (39-308) 417 U/L (39-308) Creatine Kinase MB 5.3 NG/ML (0.5-3.6) 5.1 NG/ML (0.5-3.6) PE at Discharge GENERAL: SKIN: Warm and dry. HEAD: Normocephalic. EYES: No scleral icterus. No injection or drainage. NECK: Supple, trachea midline. No JVD or lymphadenopathy. CARDIOVASCULAR: Regular rate and rhythm without murmurs, gallops, or rubs. RESPIRATORY: Breath sounds equal bilaterally. No accessory muscle use. GASTROINTESTINAL: Abdomen soft, non-tender, nondistended. MUSCULOSKELETAL: No cyanosis, or edema. BACK: Nontender without obvious deformity. No CVA tenderness. Hospital Course patient underwent cardiac cath postop course uneventful Pt Condition on Discharge: Good Discharge Disposition: Discharge Home Discharge Instructions DIET: Follow Instructions for: Heart Healthy Diet Activities you can perform: Weight Bearing as Anali Activities to avoid: Driving for 24 hrs Vladimir Martinez MD Dec 19, 2017 10:48
--- NOTE | 2017-12-19 11:01 | MB ---
cc: Vladimir Martinez MD DATE: 12/19/2017 INDICATION: Unstable angina. HISTORY OF PRESENT ILLNESS: This is a 47-year-old gentleman with history of coronary artery disease managed medically with hypertension and hyperlipidemia. He presents now with recurrent substernal chest pain, worse with exertion, similar to his prior angina. A heart catheterization back in June of last year with a subtotally occluded small distal circumflex lesion, which we managed medically. He has been on isosorbide 60 mg a day and now has worsening symptoms, he came in. Initial troponins were negative, but he has T-wave inversions. We were consulted for further recommendations and consideration of cardiac catheterization. ALLERGIES: LISINOPRIL. PAST MEDICAL HISTORY: Coronary artery disease, hypertension, hyperlipidemia, prior tobacco abuse. MEDICATIONS: Active medications: Plavix, Lopressor, atorvastatin, isosorbide, Chantix. REVIEW OF SYSTEMS: A 12-point review of systems was performed, negative unless otherwise noted in history of present illness. PHYSICAL EXAMINATION: VITAL SIGNS: Temperature 98, pulse 90, blood pressure 141/95 mmHg. GENERAL: Alert and oriented x 3, in no acute distress. HEENT: Shows pupils reactive to light and accommodation. Extraocular muscles intact. NECK: No elevation in jugular venous distention. No thyromegaly, lymphadenopathy. No carotid bruits. LUNGS: Clear to auscultation bilaterally. CARDIOVASCULAR: Regular rate and rhythm without murmurs, rubs or gallops. ABDOMEN: Nontender, nondistended with good bowel sounds. No hepatosplenomegaly. EXTREMITIES: Show no clubbing, cyanosis or edema. Good peripheral pulses. NEUROLOGIC: Cranial nerves intact. Motor and sensory grossly intact. LABORATORY DATA: WBC 5.2, hemoglobin 16.1, platelet count is 188. INR is 1.1. Sodium 141, potassium 3.5, BUN is 10, creatinine 0.91. Total CK elevated at 463, troponin intermediate range 0.03. ASSESSMENT: 1. Unstable angina. 2. History of coronary artery disease, hypertension, hyperlipidemia. PLAN: Given the patient's suggestive symptoms and electrocardiographic changes and known history of coronary artery disease, we will plan for cardiac catheterization. The patient is n.p.o. Vladimir Martinez MD LUIS MIGUEL/TL , 10:44 AM , 10:59 AM
--- NOTE | 2017-12-19 11:16 | MA ---
cc: Vladimir Martinez MD DATE: 12/19/2017 INDICATION: Unstable angina. PROCEDURE PERFORMED: 1. Fluoroscopy with interpretation. 2. Coronary angiography. 3. Percutaneous intervention with drug-eluting stent to the first obtuse marginal branch. METHOD: Risks, benefits and alternatives discussed with the patient. The patient understood and consented to the procedure. DESCRIPTION OF PROCEDURE: The patient was brought to the catheterization lab and placed on the catheterization table. The right wrist was prepped and draped in sterile fashion. The right wrist was anesthetized with 2% lidocaine. The right radial artery was cannulated. A 6-Albanian 7 cm sheath was placed without difficulty. 200 mcg of intraarterial nitroglycerin in addition to 3000 units of intravenous heparin was administered. CORONARY ANGIOGRAPHY; 1. Left main coronary artery is angiographically normal. 2. Left anterior descending coronary artery is very large caliber size vessel with some luminal irregularities in the proximal segment. Distal segment around the apex does have moderate diffuse disease, but nothing that seems to be hemodynamically significant. 3. Left circumflex is very large caliber size vessel and dominant, giving rise to a posterior descending branch. There is a very high obtuse marginal branch, which has a 75% proximal tubular stenosis. Second obtuse marginal branch is small caliber size, has 80% ostial stenosis. There is a posterior descending branch, which has what appears to be about 50% stenosis in the proximal segment that looks relatively unchanged compared to the prior films. There is a posterolateral branch off the distal left circumflex which is subtotally occluded. Again, that looks relatively unchanged compared to prior. PERCUTANEOUS INTERVENTION: Given the patient's worsening symptoms and what appears to be a new obtuse marginal branch stenosis, we elected to proceed with attempted revascularization. A 6-Albanian XB 4.0 guide catheter was advanced into the left main. Angiomax was administered throughout the entire procedure, maintaining appropriate anticoagulation. 0.014 inch, 180 cm Bitzer [employer] Runthrough wire was navigated down the first obtuse marginal branch. A 2.25 x 15 mm RX Resolute [place] stent was advanced to the proximal obtuse marginal branch and deployed at 16 atmospheres. Repeat angiography showed no residual stenosis, CK 3 flow. Guide catheter was removed. HemoBand was applied. CONCLUSIONS: 1. Severe small vessel coronary artery disease involving a new first obtuse marginal branch stenosis. 2. Successful percutaneous intervention with drug-eluting stent to the first obtuse marginal branch. PLAN: Hopefully this will translate well to symptomatic improvement. The patient still does have some small vessel disease. We will increase his isosorbide to 120 mg a day. Hopefully, he can be discharged later today if there is uneventful immediate postoperative course. Vladimir Martinez MD LUIS MIGUEL/TL , 10:47 AM , 11:15 AM
--- NOTE | 2017-12-19 15:52 | EKG ---
Date Performed: 12/18/2017 Time Performed: 14:53:00 PTAGE: 47 years EKG: ATRIAL FIBRILLATION POSSIBLE ANTERIOR MYOCARDIAL INFARCTION INFERIOR MYOCARDIAL INFARCTION When compared to previous tracing, ventricular response to atrial Fibrillation is slower. ABNORMAL EC G PREVIOUS TRACING : 07/29/2017 12.57.05 DOCTOR: Sav Orozco Interpretating Date/Time 12/19/2017 15:51:03
--- NOTE | 2017-12-19 15:52 | EKG ---
Date Performed: 12/18/2017 Time Performed: 18:19:19 PTAGE: 47 years EKG: ATRIAL FIBRILLATION LOW QRS VOLTAGE IN EXTREMITY LEADS INFERIOR MYOCARDIAL INFARCTION ANTER OSEPTAL MYOCARDIAL INFARCTION Since previous tracing, no significant change noted ABNORMAL ECG PREVIOUS TRACING : 12/18/2017 14.53.00 DOCTOR: Sav Orozco Interpretating Date/Time 12/19/2017 15:51:52
--- NOTE | 2017-12-19 15:58 | EKG ---
Date Performed: 12/18/2017 Time Performed: 19:32:00 PTAGE: 47 years EKG: ATRIAL FIBRILLATION NONSPECIFIC T-WAVE ABNORMALITY When compared to previous tracing, possi ble inferior infarction Pattern is less prominant. ABNORMAL RHYTHM ECG PREVIOUS TRACING : 12/18/2017 DOCTOR: Sav Orozco Interpretating Date/Time 12/19/2017 15:57:57
--- NOTE | 2017-12-19 16:01 | EKG ---
Date Performed: 12/18/2017 Time Performed: 22:03:02 PTAGE: 47 years EKG: ATRIAL FIBRILLATION POSSIBLE ANTERIOR MYOCARDIAL INFARCTION INFERIOR MYOCARDIAL INFARCTION When compared to previous tracing, R wave progression is slightly More due to lead placement. Possibl e prior infarct pattern is slightly more prominant. ABNORMAL ECG PREVIOUS TRACING : 12/18/2017 19.32.00 DOCTOR: Sav Orozco Interpretating Date/Time 12/19/2017 16:00:49
[2017-12-20] MEDS ORDERED: CLOPIDOGREL 75 MG TAB PO SCH (09:00)
[2017-12-20] MEDS ORDERED: VARENICLINE 0.5 MG TAB PO SCH (09:00)
--- NOTE | 2017-12-21 09:19 | EKG ---
Date Performed: 12/19/2017 Time Performed: 15:05:58 PTAGE: 47 years EKG: Atrial fibrillation. Inferior infarct - age undetermined Possible anterior infarct - age un determined Lateral ST-T changes may be due to myocardial ischemia Abnormal ECG PREVIOUS TRACING : 12/18/2017 22.03 DOCTOR: Laquita Red Interpretating Date/Time 12/21/2017 09:13:33
== END 2017-12-19 18:14 | disposition home or self-care (01) ==
LOC: NEPE 14:45 → NEDA 16:26 → NEPHCDU 18:35 → HDIC 12-19 10:10
PROVIDERS: ADMIT Hospitalist; ATTEND Hospitalist
DX: I25.110 Atherosclerotic heart disease of native coronary artery with unstable angina pectoris (principal); R07.9 Chest pain, unspecified; R94.31 Abnormal electrocardiogram [ECG] [EKG]; J44.9 Chronic obstructive pulmonary disease, unspecified; I48.91 Unspecified atrial fibrillation; R06.02 Shortness of breath; R11.2 Nausea with vomiting, unspecified; R73.03 Prediabetes; I10 Essential (primary) hypertension; E78.5 Hyperlipidemia, unspecified; Z72.0 Tobacco use; Z86.73 Personal history of transient ischemic attack (TIA), and cerebral infarction without residual deficits; Z79.01 Long term (current) use of anticoagulants
CPT/HCPCS: 71046; 80053; 82550; 82552; 83690; 83735; 84484; 85025; 85610; 85730; 92928; 93005; 93458; 96374; 99152; 99153; 99285; C1769; C1874; C1887; C1893; G0378; J0583; J2250; J2270; J3010; J7030; Q9967

== ENCOUNTER 2018-03-14 20:14 | Inpatient (IN) ==
--- NOTE | 2018-03-14 21:08 | ED ---
HPI General Chief Complaint: Chest Pain Stated Complaint: chest pain Time Seen by Provider: 03/14/18 20:47 History of Present Illness HPI narrative: Patient is a 47-year-old male who was bench pressing today at the gym he added more weight than normal and then he felt a strain pop in his left chest the weight back into the rack stood up from the bench press and he syncopized temporarily had a white out of his vision landed on his right elbow in the ER he only has pain when he moves his arm it is intermittent it is related to muscle movement is made worse with using the arm worse with deep inspiration denies any radiation it does not occur at rest and he thinks it is related to the overuse of the muscle when he bench press today he is not taking any medication to alleviate the symptoms and he has not had this symptom before Complete Quality Measures for STEMI Alert Patients Related Data Home Medications Medication Instructions Recorded Confirmed albuterol sulfate [Ventolin HFA] 2 puff INHALATION Q4-6H PRN 03/14/18 03/14/18 aspirin 81 mg PO DAILY 03/14/18 03/14/18 atorvastatin 80 mg PO HS 03/14/18 03/14/18 clopidogrel [Plavix] 75 mg PO DAILY 03/14/18 03/14/18 isosorbide mononitrate 120 mg PO QAM 03/14/18 03/14/18 metoprolol tartrate 50 mg PO BID 03/14/18 03/14/18 Allergies Allergy/AdvReac Type Severity Reaction Status Date / Time lisinopril Allergy Severe Anaphylaxis Verified 12/18/17 14:57 JUST FOR MEN Allergy Severe Shortness Uncoded 06/06/17 11:24 of Breath Review of Systems Except as stated in HPI: all other systems reviewed are negative Cardiovascular Reports chest pain and Reports chest pain with activity Comments: CP WITH MOVING LEFT ARM OR DEEP INSPIRATION ALL STartTED WHILE LIFTING HEAVY WEIGHT BENCH PRESS AT GYM, then on standing up he syncopized and then fell onto his right arm PMF Social History Social History Substance History: No History of Abuse Second Hand Smoke Exposure: No Smoking Status: Light tobacco smoker Tobacco Type: Cigarettes How Often Do You Have a Drink Containing Alcohol: 4 or more times a week Recent Travel in [place] within the Last 8 Weeks: No Recent Out of Country Travel within the Last 8 Weeks: No Immunization History Tetanus Immunization: <5 Years Hx Influenza Vaccine This Season: Yes Exam Narrative Exam Narrative: GENERAL: TEARFUL HEALTHY APPEARING MALE SKIN: Focused skin assessment warm/dry. HEAD: Atraumatic. Normocephalic. EYES: Pupils equal and round. No scleral icterus. No injection or drainage. ENT: No nasal bleeding or discharge. Mucous membranes pink and moist. NECK: Trachea midline. No JVD. CARDIOVASCULAR: Regular rate and rhythm. Reproducible left lower rib pain around T8 rib made worse with pushing his left arm against my resistance as well as deep inspiration and I can reproduce it with palpation of the area, NO HEMATOMA SEEN RESPIRATORY: No accessory muscle use. Clear to auscultation. Breath sounds equal bilaterally. GASTROINTESTINAL: Abdomen soft, non-tender, nondistended. Hepatic and splenic margins not palpable. MUSCULOSKELETAL: No obvious deformities. No clubbing. No cyanosis. No edema. NEUROLOGICAL: Awake and alert. No obvious cranial nerve deficits. Motor grossly within normal limits. Normal speech. PSYCHIATRIC: Appropriate mood and affect; insight and judgment normal. Course Reevaluation(s) Reevaluation #1: pt trop returns at 1.8 and he is heparinized by this MD and admitted to [facility] MD zane patel and philippe Initial Documented Vital Signs Temperature 98.2 F 03/14/18 20:33 Pulse Rate 72 03/14/18 20:33 Respiratory Rate 20 03/14/18 20:33 Blood Pressure 134/104 H 03/14/18 20:33 Pulse Oximetry 95 03/14/18 20:33 Last Documented Vital Signs Temperature 98.2 F 03/14/18 20:33 Pulse Rate 77 03/15/18 02:18 Respiratory Rate 16 03/15/18 02:18 Blood Pressure 133/95 H 03/15/18 02:18 Pulse Oximetry 95 03/15/18 02:18 Medical Decision Making Lab Data Result diagrams: 03/14/18 21:10 03/14/18 21:10 Lab Results 03/14/18 03/14/18 03/14/18 Range/Units 21:10 21:10 21:10 WBC 5.1 (4.0-11.0) th/mm3 RBC 5.38 (4.50-5.90) mil/mm3 Hgb 15.9 (13.0-17.0) gm/dL Hct 48.0 (39.0-51.0) % MCV 89.3 (80.0-100.0) fL MCH 29.6 (27.0-34.0) pg MCHC 33.1 (32.0-36.0) % RDW 14.6 (11.6-17.2) % Plt Count 159 (150-450) th/mm3 MPV 7.1 (7.0-11.0) fL Prelim Diff (Auto) Slide review pending Neut % (Auto) 18.0 (16.0-70.0) % Lymph % (Auto) 70.5 H (9.0-44.0) % [place] % (Auto) 9.7 H (0.0-8.0) % Eos % (Auto) 1.3 (0.0-4.0) % Baso % (Auto) 0.5 (0.0-2.0) % Neut # (Auto) 0.9 L (1.8-7.7) th/mm3 Lymph # (Auto) 3.6 (1.0-4.8) th/mm3 [place] # (Auto) 0.5 (0.0-0.9) th/mm3 Eos # (Auto) 0.1 (0.0-0.4) th/mm3 Baso # (Auto) 0.0 (0.0-0.2) th/mm3 WBC Differential Manual diff final Seg Neuts % (Manual) 12 L (16-70) % Lymphocytes % (Manual) 76 H (9-44) % Monocytes % (Manual) 10 H (0-8) % Basophils % (Manual) 2 (0-2) % Abs Neuts (Manual) 0.6 L (1.8-7.7) th/mm3 Differential Comment . Platelet Estimate Normal (Normal) Platelet Morphology Normal (Normal) PT 10.0 (9.8-11.6) sec INR 1.0 Ratio APTT 24.8 (24.3-30.1) sec Sodium 146 H (136-145) meq/L Potassium 3.6 (3.5-5.1) meq/L Chloride 111 H (98-107) meq/L Carbon Dioxide 22.1 (21.0-32.0) meq/L Anion Gap 13 (5-15) meq/L BUN 9 (7-18) mg/dL Creatinine 0.80 (0.60-1.30) mg/dL Estimated GFR Greater than 89 (>89) mL/min Random Glucose 77 (74-106) mg/dL Calcium 8.7 (8.5-10.1) mg/dL Magnesium 1.9 (1.5-2.5) mg/dL Total Bilirubin 0.6 (0.2-1.0) mg/dL AST 30 (15-37) U/L ALT 28 (12-78) U/L Alkaline Phosphatase 69 (45-117) U/L Total Creatine Kinase 522 H (39-308) U/L CK-MB (CK-2) 7.1 H (0.5-3.6) ng/mL CK-MB (CK-2) % 1.4 (0.0-4.0) % Troponin I 0.03 (0.02-0.05) ng/mL Total Protein 7.4 (6.4-8.2) g/dL Albumin 3.7 (3.4-5.0) g/dL Imaging Data Radiologist's impression: Chest X-Ray 03/14/18 21:08 CONCLUSION: No acute cardiopulmonary process. ECG Data EKG Prior to Arrival: No Attestation: I personally reviewed and interpreted this ECG as follows: (Rate of 94 bpm A. fib with no obvious ST elevations or depressions) Discharge Plan Discharge Disposition Patient Disposition: 30 Still Patient Discharge Details Diagnosis: Non-ST elevated myocardial infarction Physicians Team ED Provider: Alireza Canchola Primary Care Provider: Magdy Guerra Attending Provider: Jet Bazan Other Providers: Etienne Prado Status ED Status: Admitted Patient
[2018-03-14] MEDS ORDERED: Ketorolac Inj 30 MG/ML (IVP) Vial IV.PUSH ONE (21:09)
[2018-03-14 21:46] LABS: Baso % (Auto) 0.5 % (0.0-2.0); Eos # (Auto) 0.1 th/mm3 (0.0-0.4); Eos % (Auto) 1.3 % (0.0-4.0); Hemoglobin 15.9 gm/dL (13.0-17.0); Lymph # (Auto) 3.6 th/mm3 (1.0-4.8); Lymph % (Auto) 70.5 % (9.0-44.0); Mean Corpuscular HGB Conc 33.1 % (32.0-36.0); Mean Corpuscular Hemoglobin 29.6 pg (27.0-34.0); Mean Corpuscular Volume 89.3 fL (80.0-100.0); Mean Platelet Volume 7.1 fL (7.0-11.0); Mono # (Auto) 0.5 th/mm3 (0.0-0.9); Mono % (Auto) 9.7 % (0.0-8.0); Neut # (Auto) 0.9 th/mm3 (1.8-7.7); Platelet Count 159 th/mm3 (150-450); Red Blood Count 5.38 mil/mm3 (4.50-5.90); Red Cell Distribution Width 14.6 % (11.6-17.2); White Blood Count 5.1 th/mm3 (4.0-11.0)
--- NOTE | 2018-03-14 21:53 | XR ---
EXAM DATE: 03/14/2018 9:32 PM EDT AGE/SEX: 47 years / Male INDICATIONS: Chest pain. CLINICAL DATA: This is the patient's initial encounter. Patient reports that signs and symptoms have been present for 1 day and indicates a pain score of 8/10. MEDICAL/SURGICAL HISTORY: . Cardiovascular disease. Hypertension. Chronic obstructive pulmonary disease.Tia,migraine None. COMPARISON: [facility] [place], CHEST PA & LAT, 12/18/2017. . FINDINGS: The heart size is normal. The lungs are grossly clear. There is elevation of the right hemidiaphragm. This pattern is stable. No effusion is seen. CONCLUSION: No acute cardiopulmonary process. Electronically signed by: Salinas Cantrell MD 03/14/2018 9:52 PM EDT
[2018-03-14 22:00] LABS: Activated Partial Thrombo Time 24.8 sec (24.3-30.1); Albumin 3.7 g/dL (3.4-5.0); Anion Gap 13 meq/L (5-15); Aspartate Aminotransferase 30 U/L (15-37); Blood Urea Nitrogen 9 mg/dL (7-18); Calcium 8.7 mg/dL (8.5-10.1); Carbon Dioxide 22.1 meq/L (21.0-32.0); Chloride 111 meq/L (98-107); Glomerular Filtration Rate Greater Than 89 mL/min (>89); Glucose,Random 77 mg/dL (74-106); Magnesium 1.9 mg/dL (1.5-2.5); Potassium 3.6 meq/L (3.5-5.1); Sodium 146 meq/L (136-145)
[2018-03-14 22:01] LABS: Alanine Aminotransferase 28 U/L (12-78)
[2018-03-14 22:05] LABS: Alkaline Phosphatase 69 U/L (45-117); Creatine Kinase 522 U/L (39-308); Total Protein 7.4 g/dL (6.4-8.2); Troponin I 0.03 ng/mL (0.02-0.05)
[2018-03-14 22:17] LABS: CKMB Percent 1.4 % (0.0-4.0); Creatine Kinase MB 7.1 ng/mL (0.5-3.6)
[2018-03-14] MEDS ORDERED: Heparin 10,000 UNIT/ML Vial (IV Additive) IV.PUSH STA (22:39)
[2018-03-14 22:44] LABS: Lymphocytes 76 % (9-44); Monocytes 10 % (0-8)
[2018-03-14 22:46] LABS: Platelet Estimate Normal (Normal); Platelet Morphology Normal (Normal)
[2018-03-14] MEDS ORDERED: Heparin Drip 25,000 UNIT/250 ML BAG IV.CONT PRN (22:47)
[2018-03-14] MEDS ORDERED: Morphine Inj 4 MG/ML Vial IV.PUSH ONE (23:11)
--- NOTE | 2018-03-14 23:49 | P.HP ---
History of Present Illness Service: cp hospitalist Primary Care Physician: Magdy Guerra Chief Complaint: chest pain History of Present Illness: HPI narrative: Patient is a 47-year-old male who was bench pressing today at the gym he added more weight than normal and then he felt a strain pop in his left chest the weight back into the rack stood up from the bench press and he syncopized temporarily had a white out of his vision landed on his right elbow in the ER he only has pain when he moves his arm it is intermittent it is related to muscle movement is made worse with using the arm worse with deep inspiration denies any radiation it does not occur at rest and he thinks it is related to the overuse of the muscle when he bench press today he is not taking any medication to alleviate the symptoms and he has not had this symptom before Complete Quality Measures for STEMI Alert Patients Patient does state he had stent placement within last year. In er was found to be in atrial fib with controlled ventricular response ,but did have positive troponin. Will admit and consult cardiology. - Diagnosis (1) Non-ST elevated myocardial infarction (2) Atrial fibrillation Inpatient Certification: I certify that the inpatient services were ordered in accordance with Medicare regulations governing the order. This includes certification that hospital inpatient services are reasonable and necessary and in the case of services not specified as inpatient-only under 42 CFR 419.22(n), that they are appropriately provided as inpatient services in accordance to with the 2-midnight benchmark under 43 CFR 412.3(e) Estimated Total Length of Stay (Days): 2 Review of Systems Constitutional: Reports body ache(s) Cardiovascular: Reports chest pain, Reports chest pain with activity, Reports fainting, Reports irregular heart rhythm Musculoskeletal: Reports back pain, Reports body aches PMFSH - History History Provided By: Patient - Tobacco History Second Hand Smoke Exposure: No Tobacco Use In Past 30 Days: Yes Smoking Status: Light tobacco smoker Tobacco Type: Cigarettes - Alcohol History How Often Do You Have a Drink Containing Alcohol: 4 or more times a week - Substance Use History Substance History: No History of Abuse - Travel History Recent Travel in the [place] Within the Last 8 Weeks: No Recent Travel Out of the Country Within the Last 8 Weeks: No - Immunization History Tetanus Immunization: <5 Years Hx Influenza Vaccine This Season: Yes Medications and Allergies Active Medications: Active Medications Aspirin (Aspirin Chew) 162 mg PO ONCE ONE Stop: 03/15/18 21:13 Atorvastatin Calcium (Lipitor) 80 mg PO HS [facility] Clopidogrel Bisulfate (Plavix) 75 mg PO DAILY [facility] Heparin Sodium/Dextrose (Heparin/D5w 25,000 U/250 Ml) 25,000 unit in 250 mls @ 0 mls/hr IV.CONT TITRATE PRN; Protocol PRN Reason: Per Protocol Last Admin: 03/14/18 23:20 Dose: 10,000 units/hr, 100 mls/hr Isosorbide Mononitrate (Imdur) 120 mg PO DAILY@0700 [facility] Metoprolol Tartrate (Lopressor) 50 mg PO BID [facility] Nitroglycerin (Nitrostat Sl) 0.4 mg SL Q5M PRN PRN Reason: CHEST PAIN Sodium Chloride (Ns Flush) 2 ml IV.FLUSH UNSCH PRN PRN Reason: FLUSH AFTER USING IV ACCESS Allergies Allergy/AdvReac Type Severity Reaction Status Date / Time lisinopril Allergy Severe Anaphylaxis Verified 12/18/17 14:57 JUST FOR MEN Allergy Severe Shortness Uncoded 06/06/17 11:24 of Breath Home Medications Medication Instructions Recorded Confirmed Type albuterol sulfate [Ventolin HFA] 2 puff INHALATION Q4-6H PRN 03/14/18 03/14/18 History aspirin 81 mg PO DAILY 03/14/18 03/14/18 History atorvastatin 80 mg PO HS 03/14/18 03/14/18 History clopidogrel [Plavix] 75 mg PO DAILY 03/14/18 03/14/18 History isosorbide mononitrate 120 mg PO QAM 03/14/18 03/14/18 History metoprolol tartrate 50 mg PO BID 03/14/18 03/14/18 History Exam Vital signs: Vital Signs 03/14/18 20:33 03/14/18 20:37 03/14/18 21:32 Temperature 98.2 F Pulse Rate 72 96 H 91 H Respiratory Rate 20 12 Blood Pressure 134/104 H 148/109 H Pulse Oximetry 95 95 03/14/18 21:37 03/14/18 21:48 03/14/18 23:00 Temperature Pulse Rate 92 H 96 H 98 H Respiratory Rate 18 20 16 Blood Pressure 182/95 H 130/97 H Pulse Oximetry 97 95 95 Intake & Output 03/14/18 03/14/18 03/15/18 06:59 18:59 06:59 Weight 92 kg GENERAL: SKIN: Warm and dry. HEAD: Atraumatic. Normocephalic. EYES: Pupils equal and round. No scleral icterus. No injection or drainage. ENT: No nasal bleeding or discharge. Mucous membranes pink and moist. NECK: Trachea midline. No JVD. CARDIOVASCULAR: Regular rate and rhythm. RESPIRATORY: No accessory muscle use. Clear to auscultation. Breath sounds equal bilaterally. GASTROINTESTINAL: Abdomen soft, non-tender, nondistended. Hepatic and splenic margins not palpable. MUSCULOSKELETAL: Extremities without clubbing, cyanosis, or edema. No obvious deformities. NEUROLOGICAL: Awake and alert. No obvious cranial nerve deficits. Motor grossly within normal limits. Five out of 5 muscle strength in the arms and legs. Normal speech. PSYCHIATRIC: Appropriate mood and affect; insight and judgment normal. Results - Labs CBC & Chem 7: 03/14/18 21:10 03/14/18 21:10 Labs: Laboratory Results - last 24 hr 03/14/18 03/14/18 03/14/18 21:10 21:10 21:10 WBC 5.1 RBC 5.38 Hgb 15.9 Hct 48.0 MCV 89.3 MCH 29.6 MCHC 33.1 RDW 14.6 Plt Count 159 MPV 7.1 Prelim Diff (Auto) Slide review pending Neut % (Auto) 18.0 Lymph % (Auto) 70.5 H [place] % (Auto) 9.7 H Eos % (Auto) 1.3 Baso % (Auto) 0.5 Neut # (Auto) 0.9 L Lymph # (Auto) 3.6 [place] # (Auto) 0.5 Eos # (Auto) 0.1 Baso # (Auto) 0.0 WBC Differential Manual diff final Seg Neuts % (Manual) 12 L Lymphocytes % (Manual) 76 H Monocytes % (Manual) 10 H Basophils % (Manual) 2 Abs Neuts (Manual) 0.6 L Differential Comment . Platelet Estimate Normal Platelet Morphology Normal PT 10.0 INR 1.0 APTT 24.8 Sodium 146 H Potassium 3.6 Chloride 111 H Carbon Dioxide 22.1 Anion Gap 13 BUN 9 Creatinine 0.80 Estimated GFR Greater than 89 Random Glucose 77 Calcium 8.7 Magnesium 1.9 Total Bilirubin 0.6 AST 30 ALT 28 Alkaline Phosphatase 69 Total Creatine Kinase 522 H CK-MB (CK-2) 7.1 H CK-MB (CK-2) % 1.4 Troponin I 0.03 Total Protein 7.4 Albumin 3.7 - Imaging Impressions Chest X-Ray 03/14/18 21:08 CONCLUSION: No acute cardiopulmonary process. - ECG Interpretation: atrial fib with controlled ventricular response Caprini VTE Risk Assessment Caprini VTE Risk Assessment: Moderate/High Risk (score >= 2) Caprini Risk Assessment Model: Point Value = 1 Point Value = 2 Point Value = 3 Point Value = 5 Age 41-60 Minor surgery BMI > 25 kg/m2 Swollen legs Varicose veins or History of unexplained or recurrent spontaneous Oral contraceptives or hormone replacement Sepsis (< 1 month) Serious lung disease, including pneumonia (< 1 month) Abnormal pulmonary function Acute myocardial infarction Congestive heart failure (< 1 month) History of inflammatory bowel disease Medical patient at bed rest Age 61-74 Arthroscopic surgery Major open surgery (> 45 min) Laparoscopic surgery (> 45 min) Malignancy Confined to bed (> 72 hours) Immobilizing plaster cast Central venous access Age >= 75 History of VTE Family history of VTE Factor V Leiden Prothrombin [id number] Lupus anticoagulant Anticardiolipin antibodies Elevated serum homocysteine Heparin-induced thrombocytopenia Other congenital or acquired thrombophilia Stroke (< 1 month) Elective arthroplasty Hip, pelvis, or leg fracture Acute spinal cord injury (< 1 month) Prophylaxis Regimen: Total Risk Factor Score Risk Level Prophylaxis Regimen 0-1 Low Early ambulation 2 Moderate Order ONE of the following: *Sequential Compression Device (SCD) *Heparin 5000 units SQ BID 3-4 Higher Order ONE of the following medications: *Heparin 5000 units SQ TID *Enoxaparin/Lovenox 40 mg SQ daily (WT < 150 kg, CrCl > 30 mL/min) *Enoxaparin/Lovenox 30 mg SQ daily (WT < 150 kg, CrCl > 10-29 mL/min) *Enoxaparin/Lovenox 30 mg SQ BID (WT < 150 kg, CrCl > 30 mL/min) AND/OR *Sequential Compression Device (SCD) 5 or more Highest Order ONE of the following medications: *Heparin 5000 units SQ TID (Preferred with Epidurals) *Enoxaparin/Lovenox 40 mg SQ daily (WT < 150 kg, CrCl > 30 mL/min) *Enoxaparin/Lovenox 30 mg SQ daily (WT < 150 kg, CrCl > 10-29 mL/min) *Enoxaparin/Lovenox 30 mg SQ BID (WT < 150 kg, CrCl > 30 mL/min) AND *Sequential Compression Device (SCD) Assessment and Plan - Assessment (1) Non-ST elevated myocardial infarction Code(s): I21.4 - Non-ST elevation (NSTEMI) myocardial infarction Status: Acute Plan: admit to cardiac start heparin drip and nitro paste consult cardiology (2) Atrial fibrillation Code(s): I48.91 - Unspecified atrial fibrillation Status: Chronic Plan: continue home meds monitor - Plan further plan as case develops Code Status: full Discussed Condition With: patient (2) Atrial fibrillation Qualifiers: Atrial fibrillation type: chronic Qualified Code(s): I48.2 - Chronic atrial fibrillation
--- NOTE | 2018-03-14 23:51 | P.PNADD ---
Addendum to Inpatient Note Reason for Addendum: Additional Documentation Additional information: Patient to continue statin
[2018-03-15] MEDS ORDERED: Morphine Sulfate Inj 2 MG/ML Vial IV.PUSH PRN (02:04)
[2018-03-15 04:50] LABS: Troponin I 0.02 ng/mL (0.02-0.05)
[2018-03-15 05:02] LABS: CKMB Percent 1.2 % (0.0-4.0); Creatine Kinase MB 4.9 ng/mL (0.5-3.6)
[2018-03-15] MEDS ORDERED: Isosorbide Mononitrate 60 MG ER 24HR Tablet (Imdur) PO SCH (06:00)
[2018-03-15] MEDS: Isosorbide Mononitrate 60 MG ER 24HR Tablet (Imdur) PO SCH (06:34)
[2018-03-15] MEDS ORDERED: ISOSORBIDE MONONITRATE 120 MG PO SCH (07:00)
--- NOTE | 2018-03-15 07:53 | P.CONCA ---
<Laith Braden - Last Filed: 03/15/18 08:35> History of Present Illness Primary Care Provider: Magdy Guerra Family Provider: Magdy Guerra Chief Complaint: chest pain History of Present Illness: 47-year-old male with past medical history of CAD with chronic angina due to small vessel disease, atrial fibrillation, HTN, HLD who presented after syncopal episode. The patient reports he continues to have squeezing quality chest pain on a near daily basis, no change for several months including prior to previous PCI in December. He states he takes his Imdur when he gets the chest pain, states he takes daily. Patient went to the gym yesterday afternoon and feels like he worked out harder than usual. He went home, sat down and was about to watch movie and reportedly lost consciousness, no clear prodrome. He states that his friend told him that he was very confused and out of it for about an hour afterwards, but his friend did not witness the syncopal episode. EKG shows known A. fib, inferior Q waves, similar to previous, and previous lateral T-wave inversions appear to have improved. Troponin normal 2. Telemetry with no events noted overnight. Slightly elevated CPK 500 after working out, and now downtrending. Patient denies any palpitations. Review of Systems All other systems reviewed negative except as stated in HPI PMFSH - History History Provided By: Patient, Medical Record - Medical History Medical History: Medical History (Last Updated 03/15/18 @ 07:49 by ROSSI Faust) Afib CAD (coronary artery disease) HLD (hyperlipidemia) HTN (hypertension) - Tobacco History Second Hand Smoke Exposure: No Tobacco Use In Past 30 Days: Yes Smoking Status: Light tobacco smoker Tobacco Type: Cigarettes - Alcohol History How Often Do You Have a Drink Containing Alcohol: 4 or more times a week - Substance Use History Substance History: No History of Abuse - Travel History Recent Travel in the [place] Within the Last 8 Weeks: No Recent Travel Out of the Country Within the Last 8 Weeks: No - Immunization History Tetanus Immunization: <5 Years Hx Influenza Vaccine This Season: Yes Medications and Allergies Allergies Allergy/AdvReac Type Severity Reaction Status Date / Time lisinopril Allergy Severe Anaphylaxis Verified 12/18/17 14:57 JUST FOR MEN Allergy Severe Shortness Uncoded 06/06/17 11:24 of Breath Home Medications Medication Instructions Recorded Confirmed Type albuterol sulfate [Ventolin HFA] 2 puff INHALATION Q4-6H PRN 03/14/18 03/14/18 History aspirin 81 mg PO DAILY 03/14/18 03/14/18 History atorvastatin 80 mg PO HS 03/14/18 03/14/18 History clopidogrel [Plavix] 75 mg PO DAILY 03/14/18 03/14/18 History isosorbide mononitrate 120 mg PO QAM 03/14/18 03/14/18 History metoprolol tartrate 50 mg PO BID 03/14/18 03/14/18 History Active Medications: Active Medications Aspirin (Aspirin Chew) 162 mg PO ONCE ONE Stop: 03/15/18 21:13 Atorvastatin Calcium (Lipitor) 80 mg PO HS GLORIA Clopidogrel Bisulfate (Plavix) 75 mg PO DAILY [facility] Heparin Sodium/Dextrose (Heparin/D5w 25,000 U/250 Ml) 25,000 unit in 250 mls @ 0 mls/hr IV.CONT TITRATE PRN; Protocol PRN Reason: Per Protocol Last Admin: 03/14/18 23:20 Dose: 10,000 units/hr, 100 mls/hr Isosorbide Mononitrate (Imdur) 120 mg PO DAILY@0700 GLORIA Last Admin: 03/15/18 06:34 Dose: 120 mg Metoprolol Tartrate (Lopressor) 50 mg PO BID [facility] Morphine Sulfate (Morphine Inj) 2 mg IV.PUSH Q3H PRN PRN Reason: Acute Pain Last Admin: 03/15/18 02:36 Dose: 2 mg Nitroglycerin (Nitrostat Sl) 0.4 mg SL Q5M PRN PRN Reason: CHEST PAIN Sodium Chloride (Ns Flush) 2 ml IV.FLUSH UNSCH PRN PRN Reason: FLUSH AFTER USING IV ACCESS Exam Vital signs: Vital Signs 03/14/18 20:33 03/14/18 20:37 03/14/18 21:32 Temperature 98.2 F Pulse Rate 72 96 H 91 H Respiratory Rate 20 12 Blood Pressure 134/104 H 148/109 H Pulse Oximetry 95 95 03/14/18 21:37 03/14/18 21:48 03/14/18 23:00 Temperature Pulse Rate 92 H 96 H 98 H Respiratory Rate 18 20 16 Blood Pressure 182/95 H 130/97 H Pulse Oximetry 97 95 95 03/15/18 01:00 03/15/18 02:18 03/15/18 04:00 Temperature 98 F Pulse Rate 79 77 78 Respiratory Rate 16 16 Blood Pressure 108/75 133/95 H 115/97 H Pulse Oximetry 95 95 96 03/15/18 04:02 03/15/18 04:04 03/15/18 04:50 Temperature Pulse Rate 77 61 Respiratory Rate 12 12 Blood Pressure 113/73 Pulse Oximetry 95 03/15/18 05:00 03/15/18 06:00 Temperature Pulse Rate 63 66 Respiratory Rate Blood Pressure Pulse Oximetry Intake & Output 03/14/18 03/15/18 03/15/18 18:59 06:59 18:59 Intake Total 0 / 0 Output Total 0 / 0 Balance 0 / 0 Weight 224 lb 13.944 oz Intake: Oral 0 / 0 Output: Urine 0 / 0 Narrative: GENERAL: Well-developed well-nourished. In no acute distress. NECK: No carotid bruits. No JVD. CARDIOVASCULAR: Irregular rate and rhythm. No murmur appreciated. RESPIRATORY: No accessory muscle use. Clear to auscultation. Breath sounds equal bilaterally. MUSCULOSKELETAL: No clubbing or cyanosis. No edema. NEUROLOGICAL: Awake and alert. Normal speech. Results 03/15/18 07:40 03/14/18 21:10 Cardiac Enzymes 03/14/18 03/15/18 Range/Units 21:10 03:25 AST 30 (15-37) U/L CK-MB (CK-2) 7.1 H 4.9 H (0.5-3.6) ng/mL Troponin I 0.03 0.02 (0.02-0.05) ng/mL Coagulation 03/14/18 Range/Units 21:10 PT 10.0 (9.8-11.6) sec APTT 24.8 (24.3-30.1) sec CBC 03/14/18 Range/Units 21:10 WBC 5.1 (4.0-11.0) th/mm3 RBC 5.38 (4.50-5.90) mil/mm3 Hgb 15.9 (13.0-17.0) gm/dL Hct 48.0 (39.0-51.0) % Plt Count 159 (150-450) th/mm3 Neut # (Auto) 0.9 L (1.8-7.7) th/mm3 Lymph # (Auto) 3.6 (1.0-4.8) th/mm3 [place] # (Auto) 0.5 (0.0-0.9) th/mm3 Eos # (Auto) 0.1 (0.0-0.4) th/mm3 Baso # (Auto) 0.0 (0.0-0.2) th/mm3 Comprehensive Metabolic Panel 03/14/18 Range/Units 21:10 Sodium 146 H (136-145) meq/L Potassium 3.6 (3.5-5.1) meq/L Chloride 111 H (98-107) meq/L Carbon Dioxide 22.1 (21.0-32.0) meq/L BUN 9 (7-18) mg/dL Creatinine 0.80 (0.60-1.30) mg/dL Calcium 8.7 (8.5-10.1) mg/dL AST 30 (15-37) U/L ALT 28 (12-78) U/L Alkaline Phosphatase 69 (45-117) U/L Total Protein 7.4 (6.4-8.2) g/dL Albumin 3.7 (3.4-5.0) g/dL Intake and Output 03/14/18 03/15/18 03/15/18 22:59 06:59 14:59 Intake Total 0 / 0 Output Total 0 / 0 Balance 0 / 0 Intake: Oral 0 / 0 Output: Urine 0 / 0 Other: Weight 202 lb 13.204 oz 224 lb 13.944 oz Assessment and Plan - Plan 47-year-old male with past medical history of CAD with chronic angina due to small vessel disease, atrial fibrillation, HTN, HLD who presented after syncopal episode. Syncope: Unclear etiology. Possibly arrhythmogenic, continue telemetry monitoring, could consider outpatient event monitor. Could consider EEG to rule out seizure? CAD with chronic angina: No evidence of ACS by cardiac enzymes or EKGs. Continue aspirin, statin, Plavix, Imdur. Atrial fibrillation: Heart rate is currently controlled on metoprolol. Discussed Condition With: Patient, Dr. Prado <Etienne Prado - Last Filed: 03/15/18 08:41> History of Present Illness Primary Care Provider: Magdy Guerra Family Provider: Magdy Guerra [facility] - Medical History Medical History: Medical History (Last Updated 03/15/18 @ 07:49 by ROSSI Faust) Afib CAD (coronary artery disease) HLD (hyperlipidemia) HTN (hypertension) Medications and Allergies Active Medications: Active Medications Aspirin (Aspirin Chew) 162 mg PO ONCE ONE Stop: 03/15/18 21:13 Atorvastatin Calcium (Lipitor) 80 mg PO HS [facility] Clopidogrel Bisulfate (Plavix) 75 mg PO DAILY [facility] Heparin Sodium/Dextrose (Heparin/D5w 25,000 U/250 Ml) 25,000 unit in 250 mls @ 0 mls/hr IV.CONT TITRATE PRN; Protocol PRN Reason: Per Protocol Last Admin: 03/14/18 23:20 Dose: 10,000 units/hr, 100 mls/hr Isosorbide Mononitrate (Imdur) 120 mg PO DAILY@0700 [facility] Last Admin: 03/15/18 06:34 Dose: 120 mg Metoprolol Tartrate (Lopressor) 50 mg PO BID [facility] Morphine Sulfate (Morphine Inj) 2 mg IV.PUSH Q3H PRN PRN Reason: Acute Pain Last Admin: 03/15/18 02:36 Dose: 2 mg Nitroglycerin (Nitrostat Sl) 0.4 mg SL Q5M PRN PRN Reason: CHEST PAIN Sodium Chloride (Ns Flush) 2 ml IV.FLUSH UNSCH PRN PRN Reason: FLUSH AFTER USING IV ACCESS Exam Vital signs: Vital Signs 03/14/18 20:33 03/14/18 20:37 03/14/18 21:32 Temperature 98.2 F Pulse Rate 72 96 H 91 H Respiratory Rate 20 12 Blood Pressure 134/104 H 148/109 H Pulse Oximetry 95 95 03/14/18 21:37 03/14/18 21:48 03/14/18 23:00 Temperature Pulse Rate 92 H 96 H 98 H Respiratory Rate 18 20 16 Blood Pressure 182/95 H 130/97 H Pulse Oximetry 97 95 95 03/15/18 01:00 03/15/18 02:18 03/15/18 04:00 Temperature 98 F Pulse Rate 79 77 78 Respiratory Rate 16 16 Blood Pressure 108/75 133/95 H 115/97 H Pulse Oximetry 95 95 96 03/15/18 04:02 03/15/18 04:04 03/15/18 04:50 Temperature Pulse Rate 77 61 Respiratory Rate 12 12 Blood Pressure 113/73 Pulse Oximetry 95 03/15/18 05:00 03/15/18 06:00 Temperature Pulse Rate 63 66 Respiratory Rate Blood Pressure Pulse Oximetry Intake & Output 03/14/18 03/15/18 03/15/18 18:59 06:59 18:59 Intake Total 0 / 0 Output Total 0 / 0 Balance 0 / 0 Weight 102 kg Intake: Oral 0 / 0 Output: Urine 0 / 0 Results 03/15/18 07:40 03/14/18 21:10 Cardiac Enzymes 03/14/18 03/15/18 Range/Units 21:10 03:25 AST 30 (15-37) U/L CK-MB (CK-2) 7.1 H 4.9 H (0.5-3.6) ng/mL Troponin I 0.03 0.02 (0.02-0.05) ng/mL Coagulation 03/14/18 03/15/18 Range/Units 21:10 07:40 PT 10.0 (9.8-11.6) sec APTT 24.8 46.7 H D (24.3-30.1) sec CBC 03/14/18 03/15/18 Range/Units 21:10 07:40 WBC 5.1 5.0 (4.0-11.0) th/mm3 RBC 5.38 5.24 (4.50-5.90) mil/mm3 Hgb 15.9 15.4 (13.0-17.0) gm/dL Hct 48.0 47.7 (39.0-51.0) % Plt Count 159 158 (150-450) th/mm3 Neut # (Auto) 0.9 L (1.8-7.7) th/mm3 Lymph # (Auto) 3.6 (1.0-4.8) th/mm3 [place] # (Auto) 0.5 (0.0-0.9) th/mm3 Eos # (Auto) 0.1 (0.0-0.4) th/mm3 Baso # (Auto) 0.0 (0.0-0.2) th/mm3 Comprehensive Metabolic Panel 03/14/18 Range/Units 21:10 Sodium 146 H (136-145) meq/L Potassium 3.6 (3.5-5.1) meq/L Chloride 111 H (98-107) meq/L Carbon Dioxide 22.1 (21.0-32.0) meq/L BUN 9 (7-18) mg/dL Creatinine 0.80 (0.60-1.30) mg/dL Calcium 8.7 (8.5-10.1) mg/dL AST 30 (15-37) U/L ALT 28 (12-78) U/L Alkaline Phosphatase 69 (45-117) U/L Total Protein 7.4 (6.4-8.2) g/dL Albumin 3.7 (3.4-5.0) g/dL Intake and Output 03/14/18 03/15/18 03/15/18 22:59 06:59 14:59 Intake Total 0 / 0 Output Total 0 / 0 Balance 0 / 0 Intake: Oral 0 / 0 Output: Urine 0 / 0 Other: Weight 92 kg 102 kg Assessment and Plan - Attending Attestation Agree with above. Rate controlled PAF Elevated CPK following weight lifting exercises Syncope sounds consistent with possible arrhythmia vs seizure activity with reported symptoms concerning for post-ictal phase Atypical chest pain, chronic, no evidence for ACS D/c ASA and continue Plavix. Start Eliquis 5mg bid for CHADS2-VASc score of 2. stop heparin gtt continue tele monitoring, consider outpatient cardiac event monitor. ? neuro consult for possible seizure d/o? continue current cardiac meds.
[2018-03-15 08:15] LABS: Hematocrit 47.7 % (39.0-51.0); Hemoglobin 15.4 gm/dL (13.0-17.0); Mean Corpuscular HGB Conc 32.3 % (32.0-36.0); Mean Corpuscular Hemoglobin 29.3 pg (27.0-34.0); Mean Corpuscular Volume 90.9 fL (80.0-100.0); Mean Platelet Volume 6.8 fL (7.0-11.0); Platelet Count 158 th/mm3 (150-450); Red Blood Count 5.24 mil/mm3 (4.50-5.90); Red Cell Distribution Width 14.8 % (11.6-17.2)
--- NOTE | 2018-03-15 08:20 | ECG ---
Date Performed: 03/14/2018 Time Performed: 20:49:23 PTAGE: 47 years EKG: ATRIAL FIBRILLATION INFERIOR MYOCARDIAL INFARCTION ABNORMAL ECG PREVIOUS TRACING : 12/19/2017 15.05 DOCTOR: Laquita Red Interpretating Date/Time 03/15/2018 08:17:57
--- NOTE | 2018-03-15 08:33 | P.PNIM ---
Subjective Interval history: pt asking for neb. currently wheezing. Physical Exam Vital signs: Vital Signs 03/14/18 20:33 03/14/18 20:37 03/14/18 21:32 Temperature 98.2 F Pulse Rate 72 96 H 91 H Respiratory Rate 20 12 Blood Pressure 134/104 H 148/109 H Pulse Oximetry 95 95 03/14/18 21:37 03/14/18 21:48 03/14/18 23:00 Temperature Pulse Rate 92 H 96 H 98 H Respiratory Rate 18 20 16 Blood Pressure 182/95 H 130/97 H Pulse Oximetry 97 95 95 03/15/18 01:00 03/15/18 02:18 03/15/18 04:00 Temperature 98 F Pulse Rate 79 77 78 Respiratory Rate 16 16 Blood Pressure 108/75 133/95 H 115/97 H Pulse Oximetry 95 95 96 03/15/18 04:02 03/15/18 04:04 03/15/18 04:50 Temperature Pulse Rate 77 61 Respiratory Rate 12 12 Blood Pressure 113/73 Pulse Oximetry 95 03/15/18 05:00 03/15/18 06:00 Temperature Pulse Rate 63 66 Respiratory Rate Blood Pressure Pulse Oximetry Intake & Output 03/14/18 03/15/18 03/15/18 18:59 06:59 18:59 Intake Total 0 / 0 Output Total 0 / 0 Balance 0 / 0 Weight 102 kg Intake: Oral 0 / 0 Output: Urine 0 / 0 heart irreg lung rosa exp wheezing abd s/nt ext no edema Results - Labs CBC & Chem 7: 03/15/18 07:40 03/14/18 21:10 Laboratory Results - last 24 hr 03/14/18 03/14/18 03/14/18 21:10 21:10 21:10 WBC 5.1 RBC 5.38 Hgb 15.9 Hct 48.0 MCV 89.3 MCH 29.6 MCHC 33.1 RDW 14.6 Plt Count 159 MPV 7.1 Prelim Diff (Auto) Slide review pending Neut % (Auto) 18.0 Lymph % (Auto) 70.5 H Grand % (Auto) 9.7 H Eos % (Auto) 1.3 Baso % (Auto) 0.5 Neut # (Auto) 0.9 L Lymph # (Auto) 3.6 [place] # (Auto) 0.5 Eos # (Auto) 0.1 Baso # (Auto) 0.0 WBC Differential Manual diff final Seg Neuts % (Manual) 12 L Lymphocytes % (Manual) 76 H Monocytes % (Manual) 10 H Basophils % (Manual) 2 Abs Neuts (Manual) 0.6 L Differential Comment . Platelet Estimate Normal Platelet Morphology Normal PT 10.0 INR 1.0 APTT 24.8 Sodium 146 H Potassium 3.6 Chloride 111 H Carbon Dioxide 22.1 Anion Gap 13 BUN 9 Creatinine 0.80 Estimated GFR Greater than 89 Random Glucose 77 Calcium 8.7 Magnesium 1.9 Total Bilirubin 0.6 AST 30 ALT 28 Alkaline Phosphatase 69 Total Creatine Kinase 522 H CK-MB (CK-2) 7.1 H CK-MB (CK-2) % 1.4 Troponin I 0.03 Total Protein 7.4 Albumin 3.7 03/15/18 03/15/18 03/15/18 03:25 07:40 07:40 WBC 5.0 RBC 5.24 Hgb 15.4 Hct 47.7 MCV 90.9 MCH 29.3 MCHC 32.3 RDW 14.8 Plt Count 158 MPV 6.8 L Prelim Diff (Auto) Neut % (Auto) Lymph % (Auto) Grand % (Auto) Eos % (Auto) Baso % (Auto) Neut # (Auto) Lymph # (Auto) Grand # (Auto) Eos # (Auto) Baso # (Auto) WBC Differential Seg Neuts % (Manual) Lymphocytes % (Manual) Monocytes % (Manual) Basophils % (Manual) Abs Neuts (Manual) Differential Comment Platelet Estimate Platelet Morphology PT INR APTT 46.7 H D Sodium Potassium Chloride Carbon Dioxide Anion Gap BUN Creatinine Estimated GFR Random Glucose Calcium Magnesium Total Bilirubin AST ALT Alkaline Phosphatase Total Creatine Kinase 400 H CK-MB (CK-2) 4.9 H CK-MB (CK-2) % 1.2 Troponin I 0.02 Total Protein Albumin - Imaging Impressions Chest X-Ray 03/14/18 21:08 CONCLUSION: No acute cardiopulmonary process. Assessment and Plan - Assessment (1) Chest pain Code(s): R07.9 - Chest pain, unspecified Status: Acute Plan: 1. chest pain pt was lifting weights then later syncopized. left cp. could be msk cp component pt ekg and ce's not consistent with ACS pt placed on heparin gtt in ED cont asa/plavix/imdur/statin/bb cardiology evaluating this AM 2. cad. hx posterolat branch small vessel dz 12/18. lhc. first obtuse marginal branch JACQUELINE. 3. copd. currently wheezing. duonebs ordered 4. chronic afib 5. htn 6. hyperlipidema 7/ hx cva. embolic.
[2018-03-15 08:39] LABS: Troponin I 0.03 ng/mL (0.02-0.05)
--- NOTE | 2018-03-15 08:42 | ECG ---
Date Performed: 03/15/2018 Time Performed: 04:30:48 PTAGE: 47 years EKG: Atrial fibrillation with multifocal PVCs or aberrant ventricular conduction. Leftward axis Inferior infarct - age undetermined Possible anterior infarct - age undetermined Lateral T wave palencia es are nonspecific Low QRS voltages in limb leads Abnormal ECG PREVIOUS TRACING : 03/14/2018 20.49 DOCTOR: Laquita Red Interpretating Date/Time 03/15/2018 08:41:41
[2018-03-15 08:52] LABS: CKMB Percent 1.3 % (0.0-4.0)
[2018-03-15] MEDS ORDERED: Morphine Inj 4 MG/ML Vial IV.PUSH PRN (09:00)
[2018-03-15] MEDS: Metoprolol Tartrate 50 MG Tablet PO SCH ×2 (09:12→21:29)
[2018-03-15 12:02] LABS: Troponin I 0.02 ng/mL (0.02-0.05)
[2018-03-15 12:15] LABS: CKMB Percent 1.4 % (0.0-4.0); Creatine Kinase MB 5.1 ng/mL (0.5-3.6)
[2018-03-15] MEDS: Temazepam 15 MG Capsule PO PRN (21:28)
[2018-03-16 05:24] LABS: Hemoglobin 15.2 gm/dL (13.0-17.0); Mean Corpuscular Hemoglobin 29.7 pg (27.0-34.0); Mean Corpuscular Volume 89.9 fL (80.0-100.0); Mean Platelet Volume 7.2 fL (7.0-11.0); Platelet Count 139 th/mm3 (150-450); Red Blood Count 5.12 mil/mm3 (4.50-5.90); Red Cell Distribution Width 14.7 % (11.6-17.2)
--- NOTE | 2018-03-16 08:35 | P.PNIM ---
Subjective Interval history: had more chest palpitations this AM. pt says this happened at home prior to syncope episode. Physical Exam Vital signs: Vital Signs 03/15/18 08:40 03/15/18 09:00 03/15/18 10:00 Temperature Pulse Rate 72 76 89 Respiratory Rate 16 Blood Pressure Pulse Oximetry 03/15/18 12:00 03/15/18 12:14 03/15/18 13:00 Temperature 97.9 F 97.9 F Pulse Rate 91 H 91 H 107 H Respiratory Rate 16 16 Blood Pressure 126/87 126/87 Pulse Oximetry 98 98 03/15/18 14:00 03/15/18 14:05 03/15/18 15:00 Temperature Pulse Rate 100 H 95 H 109 H Respiratory Rate 14 Blood Pressure Pulse Oximetry 03/15/18 16:00 03/15/18 16:08 03/15/18 17:00 Temperature 97.8 F Pulse Rate 97 H 109 H 97 H Respiratory Rate 16 Blood Pressure 125/101 H Pulse Oximetry 97 03/15/18 18:00 03/15/18 19:00 03/15/18 19:52 Temperature Pulse Rate 103 H 96 H 90 Respiratory Rate 18 Blood Pressure Pulse Oximetry 97 03/15/18 20:00 03/15/18 21:00 03/15/18 22:00 Temperature 98.3 F Pulse Rate 88 88 88 Respiratory Rate 20 Blood Pressure 135/100 H Pulse Oximetry 97 03/15/18 23:00 03/16/18 00:00 03/16/18 01:00 Temperature 98.8 F Pulse Rate 81 86 86 Respiratory Rate 18 Blood Pressure 135/107 H Pulse Oximetry 97 03/16/18 02:00 03/16/18 03:00 03/16/18 04:00 Temperature 97.4 F L Pulse Rate 84 86 82 Respiratory Rate 20 Blood Pressure 138/93 H Pulse Oximetry 94 L 03/16/18 05:00 03/16/18 06:00 03/16/18 07:25 Temperature 98.4 F Pulse Rate 82 83 88 Respiratory Rate 22 Blood Pressure 128/100 H Pulse Oximetry 97 03/16/18 07:33 Temperature Pulse Rate Respiratory Rate Blood Pressure Pulse Oximetry 97 Intake & Output 03/15/18 03/16/18 03/16/18 18:59 06:59 18:59 Intake Total 1000 / 1000 480 / 480 Output Total 500 / 500 Balance 500 / 500 480 / 480 Weight 101.8 kg Intake: Oral 1000 / 1000 480 / 480 Output: Urine 500 / 500 Other: # Voids 2 3 Date of Last Bowel Movement 03/15/18 03/13/18 # Bowel Movements 0 heart irreg lung improved air entry. getting neb abd s/nt ext no edema Results - Labs CBC & Chem 7: 03/16/18 04:41 03/14/18 21:10 Laboratory Results - last 24 hr 03/15/18 03/15/18 03/16/18 07:40 11:00 04:41 WBC 4.0 RBC 5.12 Hgb 15.2 Hct 46.0 MCV 89.9 MCH 29.7 MCHC 33.0 RDW 14.7 Plt Count 139 L MPV 7.2 Total Creatine Kinase 373 H 368 H CK-MB (CK-2) 5.0 H 5.1 H CK-MB (CK-2) % 1.3 1.4 Troponin I 0.03 0.02 Assessment and Plan - Assessment (1) Chest pain Code(s): R07.9 - Chest pain, unspecified Status: Acute Plan: 1. chest pain pt was lifting weights then later syncopized. left cp. could be msk cp component pt ekg and ce's not consistent with ACS Pt reports to me palpitations prior to the syncope episode. ...tele shows some afib/rvr breakthrough pt placed on heparin gtt in ED now stopped and eliquis started for afib cont antiplt/imdur/statin/bb cardiology following...will likely need to adjust his rate control this admission. 2. cad. hx posterolat branch small vessel dz 12/18. lhc. first obtuse marginal branch JACQUELINE. 3. copd. currently wheezing. duonebs ordered 4. chronic afib 5. htn 6. hyperlipidema 7/ hx cva. embolic.
--- NOTE | 2018-03-16 09:06 | P.PNCA ---
<SampsonLaith - Last Filed: 03/16/18 09:04> Subjective Interval history: Still with lower rib discomfort, worse with breathing. Telemetry shows A. fib rate 90s at rest, 120s with exertion. Physical Exam Vital signs: Vital Signs 03/15/18 10:00 03/15/18 12:00 03/15/18 12:14 Temperature 97.9 F 97.9 F Pulse Rate 89 91 H 91 H Respiratory Rate 16 16 Blood Pressure 126/87 126/87 Pulse Oximetry 98 98 03/15/18 13:00 03/15/18 14:00 03/15/18 14:05 Temperature Pulse Rate 107 H 100 H 95 H Respiratory Rate 14 Blood Pressure Pulse Oximetry 03/15/18 15:00 03/15/18 16:00 03/15/18 16:08 Temperature 97.8 F Pulse Rate 109 H 97 H 109 H Respiratory Rate 16 Blood Pressure 125/101 H Pulse Oximetry 97 03/15/18 17:00 03/15/18 18:00 03/15/18 19:00 Temperature Pulse Rate 97 H 103 H 96 H Respiratory Rate Blood Pressure Pulse Oximetry 03/15/18 19:52 03/15/18 20:00 03/15/18 21:00 Temperature 98.3 F Pulse Rate 90 88 88 Respiratory Rate 18 20 Blood Pressure 135/100 H Pulse Oximetry 97 97 03/15/18 22:00 03/15/18 23:00 03/16/18 00:00 Temperature 98.8 F Pulse Rate 88 81 86 Respiratory Rate 18 Blood Pressure 135/107 H Pulse Oximetry 97 03/16/18 01:00 03/16/18 02:00 03/16/18 03:00 Temperature Pulse Rate 86 84 86 Respiratory Rate Blood Pressure Pulse Oximetry 03/16/18 04:00 03/16/18 05:00 03/16/18 06:00 Temperature 97.4 F L Pulse Rate 82 82 83 Respiratory Rate 20 Blood Pressure 138/93 H Pulse Oximetry 94 L 03/16/18 07:25 03/16/18 07:33 Temperature 98.4 F Pulse Rate 88 Respiratory Rate 22 Blood Pressure 128/100 H Pulse Oximetry 97 97 Intake & Output 03/15/18 03/16/18 03/16/18 18:59 06:59 18:59 Intake Total 1000 / 1000 480 / 480 Output Total 500 / 500 Balance 500 / 500 480 / 480 Weight 224 lb 6.889 oz Intake: Oral 1000 / 1000 480 / 480 Output: Urine 500 / 500 Other: # Voids 2 3 Date of Last Bowel Movement 03/15/18 03/13/18 # Bowel Movements 0 Narrative: GENERAL: Well-developed well-nourished. In no acute distress. NECK: No carotid bruits. No JVD. CARDIOVASCULAR: Irregular rate and rhythm. No murmur appreciated. RESPIRATORY: No accessory muscle use. Clear to auscultation. Breath sounds equal bilaterally. MUSCULOSKELETAL: No clubbing or cyanosis. No edema. NEUROLOGICAL: Awake and alert. Normal speech. Assessment and Plan - Plan 47-year-old male with past medical history of CAD with chronic angina due to small vessel disease, atrial fibrillation, HTN, HLD who presented after syncopal episode. Syncope: Unclear etiology. Possibly arrhythmogenic, continue telemetry monitoring, could consider outpatient event monitor. CAD with chronic angina: No evidence of ACS by cardiac enzymes or EKGs. Continue aspirin, statin, Plavix, Imdur. Atrial fibrillation: Increase metoprolol from 50 mg to 100 mg for better heart rate control. Elevated Chadsvasc score, started Eliquis. Noncardiac chest pain: Seems more pleuritic or musculoskeletal. Recommend discharge planning from a cardiology perspective Discussed Condition With: Patient, Dr. Prado <Etienne Prado - Last Filed: 03/16/18 09:11> Physical Exam Vital signs: Vital Signs 03/15/18 10:00 03/15/18 12:00 03/15/18 12:14 Temperature 97.9 F 97.9 F Pulse Rate 89 91 H 91 H Respiratory Rate 16 16 Blood Pressure 126/87 126/87 Pulse Oximetry 98 98 03/15/18 13:00 03/15/18 14:00 03/15/18 14:05 Temperature Pulse Rate 107 H 100 H 95 H Respiratory Rate 14 Blood Pressure Pulse Oximetry 03/15/18 15:00 03/15/18 16:00 03/15/18 16:08 Temperature 97.8 F Pulse Rate 109 H 97 H 109 H Respiratory Rate 16 Blood Pressure 125/101 H Pulse Oximetry 97 03/15/18 17:00 03/15/18 18:00 03/15/18 19:00 Temperature Pulse Rate 97 H 103 H 96 H Respiratory Rate Blood Pressure Pulse Oximetry 03/15/18 19:52 03/15/18 20:00 03/15/18 21:00 Temperature 98.3 F Pulse Rate 90 88 88 Respiratory Rate 18 20 Blood Pressure 135/100 H Pulse Oximetry 97 97 03/15/18 22:00 03/15/18 23:00 03/16/18 00:00 Temperature 98.8 F Pulse Rate 88 81 86 Respiratory Rate 18 Blood Pressure 135/107 H Pulse Oximetry 97 03/16/18 01:00 03/16/18 02:00 03/16/18 03:00 Temperature Pulse Rate 86 84 86 Respiratory Rate Blood Pressure Pulse Oximetry 03/16/18 04:00 03/16/18 05:00 03/16/18 06:00 Temperature 97.4 F L Pulse Rate 82 82 83 Respiratory Rate 20 Blood Pressure 138/93 H Pulse Oximetry 94 L 03/16/18 07:25 03/16/18 07:33 Temperature 98.4 F Pulse Rate 88 Respiratory Rate 22 Blood Pressure 128/100 H Pulse Oximetry 97 97 Intake & Output 03/15/18 03/16/18 03/16/18 18:59 06:59 18:59 Intake Total 1000 / 1000 480 / 480 Output Total 500 / 500 Balance 500 / 500 480 / 480 Weight 101.8 kg Intake: Oral 1000 / 1000 480 / 480 Output: Urine 500 / 500 Other: # Voids 2 3 Date of Last Bowel Movement 03/15/18 03/13/18 # Bowel Movements 0 Assessment and Plan - Plan Still with Left lower rib margin pleuritic noncardiac chest discomfort. He is otherwise feeling well and ambulating. HR 90-100 rest and up to 120s ambulating. Will increase metoprolol further to 100mg bid. Continue remainder of cardiac medications without change. Consider d/c planning today.
[2018-03-16] MEDS: Isosorbide Mononitrate 60 MG ER 24HR Tablet (Imdur) PO SCH (09:07)
[2018-03-16] MEDS: Metoprolol Tartrate 100 MG Tablet PO SCH ×2 (09:11→21:02)
[2018-03-16] MEDS: Temazepam 15 MG Capsule PO PRN (21:01)
[2018-03-17] MEDS: Isosorbide Mononitrate 60 MG ER 24HR Tablet (Imdur) PO SCH (06:20)
--- NOTE | 2018-03-17 08:00 | P.PNCA ---
<Laith Braden - Last Filed: 03/17/18 07:57> Subjective Interval history: Anterior chest wall remains sore, relieved when the patient rubs on it and discomfort is reproducible to palpation. Patient reports shortness of breath improved after breathing treatments. Patient denies any palpitations. Episodes of nonsustained wide-complex tachycardia noted overnight; 15 beats, 6 beats, and 3 beats of what appears to be V. tach noted; patient asymptomatic with episodes. Physical Exam Vital signs: Vital Signs 03/16/18 08:00 03/16/18 09:00 03/16/18 10:00 Temperature Pulse Rate 106 H 106 H 92 H Respiratory Rate Blood Pressure Pulse Oximetry 97 03/16/18 11:00 03/16/18 11:54 03/16/18 12:00 Temperature 98.5 F Pulse Rate 89 82 90 Respiratory Rate 20 Blood Pressure 136/101 H Pulse Oximetry 98 03/16/18 13:00 03/16/18 14:00 03/16/18 15:00 Temperature Pulse Rate 93 H 83 81 Respiratory Rate Blood Pressure Pulse Oximetry 03/16/18 15:37 03/16/18 16:00 03/16/18 18:00 Temperature 98.5 F Pulse Rate 92 H 84 83 Respiratory Rate 22 Blood Pressure 121/95 H Pulse Oximetry 98 03/16/18 19:00 03/16/18 19:55 03/16/18 20:00 Temperature Pulse Rate 82 90 84 Respiratory Rate 16 Blood Pressure Pulse Oximetry 96 03/16/18 20:11 03/16/18 21:00 03/16/18 22:00 Temperature 98.7 F Pulse Rate 90 82 82 Respiratory Rate 20 Blood Pressure 123/95 H Pulse Oximetry 99 03/16/18 23:00 03/17/18 00:00 03/17/18 01:00 Temperature 96.4 F L Pulse Rate 87 76 78 Respiratory Rate 20 Blood Pressure 115/78 Pulse Oximetry 98 03/17/18 02:00 03/17/18 03:00 03/17/18 04:00 Temperature 98.4 F Pulse Rate 76 84 74 Respiratory Rate 18 Blood Pressure 121/88 Pulse Oximetry 98 03/17/18 05:00 03/17/18 06:00 Temperature Pulse Rate 69 73 Respiratory Rate Blood Pressure Pulse Oximetry Intake & Output 03/16/18 03/17/18 03/17/18 18:59 06:59 18:59 Intake Total 980 / 980 720 / 720 Output Total 400 / 400 Balance 580 / 580 720 / 720 Weight 229 lb 4.492 oz Intake: Oral 980 / 980 720 / 720 Output: Urine 400 / 400 Other: # Voids 3 Date of Last Bowel Movement 03/13/18 03/13/18 Narrative: GENERAL: Well-developed well-nourished. In no acute distress. NECK: No carotid bruits. No JVD. CARDIOVASCULAR: Irregular rate and rhythm. No murmur appreciated. Chest wall tenderness reproducible to palpation of the anterior chest wall. RESPIRATORY: No accessory muscle use. Clear to auscultation. Breath sounds equal bilaterally. MUSCULOSKELETAL: No clubbing or cyanosis. No edema. NEUROLOGICAL: Awake and alert. Normal speech. Assessment and Plan - Plan 47-year-old male with past medical history of CAD with chronic angina due to small vessel disease, atrial fibrillation, HTN, HLD who presented after syncopal episode. Syncope: Unclear etiology. Possibly arrhythmogenic, continue telemetry monitoring. ?NSVT? LHC? CAD with chronic angina: No evidence of ACS by cardiac enzymes or EKGs. Continue aspirin, statin, Plavix, Imdur. Atrial fibrillation: Increased metoprolol from 50 mg to 100 mg for better heart rate control. Elevated Chadsvasc score, started Eliquis. Noncardiac chest pain: Patient remains with pleuritic vs musculoskeletal chest pain. Discussed Condition With: Patient, RN, Dr. rPado <Etienne Prado - Last Filed: 03/18/18 08:09> Subjective Interval history: agree with above Physical Exam Vital signs: Vital Signs 03/17/18 08:29 03/17/18 09:00 03/17/18 10:09 Temperature 98.3 F Pulse Rate 76 82 75 Respiratory Rate 16 Blood Pressure 114/83 Pulse Oximetry 93 L 03/17/18 11:00 03/17/18 11:24 03/17/18 12:09 Temperature 98.3 F Pulse Rate 87 70 82 Respiratory Rate 16 Blood Pressure 120/91 H Pulse Oximetry 99 03/17/18 13:00 03/17/18 14:30 03/17/18 14:39 Temperature 97.5 F L Pulse Rate 78 81 81 Respiratory Rate 16 Blood Pressure 119/86 Pulse Oximetry 99 03/17/18 15:00 03/17/18 16:00 03/17/18 17:00 Temperature Pulse Rate 76 76 82 Respiratory Rate Blood Pressure Pulse Oximetry 03/17/18 18:00 03/17/18 19:00 03/17/18 19:42 Temperature 98.4 F Pulse Rate 82 88 74 Respiratory Rate 18 18 Blood Pressure 139/84 Pulse Oximetry 97 03/17/18 20:00 03/17/18 21:00 03/17/18 22:00 Temperature Pulse Rate 87 88 87 Respiratory Rate Blood Pressure Pulse Oximetry 97 03/17/18 23:00 03/18/18 00:00 03/18/18 01:00 Temperature 98.6 F Pulse Rate 88 74 77 Respiratory Rate 20 16 Blood Pressure 138/74 Pulse Oximetry 99 03/18/18 02:00 03/18/18 03:00 03/18/18 04:00 Temperature 98.8 F Pulse Rate 84 79 84 Respiratory Rate 16 18 Blood Pressure 114/90 Pulse Oximetry 97 03/18/18 05:00 03/18/18 06:00 03/18/18 07:00 Temperature 98.1 F Pulse Rate 75 82 83 Respiratory Rate 16 Blood Pressure 123/87 Pulse Oximetry Intake & Output 03/17/18 03/18/18 03/18/18 18:59 06:59 18:59 Intake Total 960 / 960 Balance 960 / 960 Weight 105.9 kg Intake: Oral 960 / 960 Other: # Voids 2 2
[2018-03-17] MEDS: Metoprolol Tartrate 100 MG Tablet PO SCH ×2 (09:04→20:59)
--- NOTE | 2018-03-17 12:17 | ECG ---
Date Performed: 03/15/2018 Time Performed: 12:07:42 PTAGE: 47 years EKG: Atrial fibrillation. Left axis deviation Inferior infarct - age undetermined Possible anter ior infarct - age undetermined Abnormal ECG PREVIOUS TRACING : 03/15/2018 09.02 DOCTOR: Laquita Red Interpretating Date/Time 03/17/2018 12:07:54
--- NOTE | 2018-03-17 12:22 | ECG ---
Date Performed: 03/15/2018 Time Performed: 09:02:52 PTAGE: 47 years EKG: Atrial fibrillation. Left axis deviation Inferior infarct - age undetermined Possible anter ior infarct - age undetermined Lateral T wave changes are nonspecific Abnormal ECG PREVIOUS TRACING : 03/15/2018 04.30 DOCTOR: Laquita Red Interpretating Date/Time 03/17/2018 12:11:10
[2018-03-17] MEDS ORDERED: Heparin/NS PF Inj 1,500 ML ONE (13:14)
[2018-03-17] MEDS ORDERED: fentaNYL Citrate Inj 100 MCG/2 ML Ampul ONE (13:25)
[2018-03-17] MEDS ORDERED: Heparin 10,000 UNITS/10 ML Vial (for IV use) ONE (13:53)
--- NOTE | 2018-03-17 14:17 | CATHPROC ---
Reframe It HIS Report Study Information Study Number Admission Scheduled Start Study Start [id number] Mar 14 2018 10:53PM 03/17/2018 Mar 17 2018 1:06PM [facility] Service Cardiac Catheterization Admit Source Facility Department Emergency department [facility] - Strategy Director Physician and Clinical Staff Initial Vladimir Vaughan Coal Screenerpao Ballesteros RN, Alexis Recorder Abigail Loaiza,RT(R) Scrub Vanessa Carr,RT(R) (BS) Scrub Student, [employer] HAND FINISHER/RT(R) Procedures Performed Procedure Location (Site) Vessel Name Angiogram LV LV Ventricle Coronary Angiograms LCA Left Coronary Coronary Angiograms RCA Right Coronary L Heart Cath Equipment Time Hand Flesher Description Size Mfg Part Number Used/Scraped TRANSDUCER, TRUWAVE [id number] 13:13 MCCONNELL JORDAN * Used W/STOCKCOCK *[id number] 534-518T *[id number] [id number] *[id number] [id number] *[id number] PIGTAIL ANG. 145 INFINITI 534-652S CATHETER *[id number] 13:13 Surface Logix BLANKET,WARM AIR CCL * Used *[id number] 13:13 Surface [employer]ix PACK, CCL CUSTOM * Used *[id number] 13:13 Surface Logix SUPPORT, ARTERIAL ADULT 74557 *[id number] Used [id number] 13:13 [employer] PACER PEN, SKIN DUAL W/ RULER * Used *[id number] 13:37 MEDTRONIC JR 5.0 DXTERITY CATHETER fr 5 [id number] Used BAND, RADIAL COMPRESSION TR [id number] 14:05 PayTango 24CM Used SHORT 24 *[id number] SHEATH, FR6 RADIAL PRELUDE 13:13 [employer]ango FR 6 [id number] Used EASE 11CM [id number] 13:13 [employer]ango WIRE, EXCHANGE 260CM 3MMJ 260CM Used *[id number] 13:13 NAMIC MANIFOLD, 4 PORT * Used *[id number] TUBING, PRESSURE INJECTION [id number] 14:01 NAMIC 72" Used 72" *[id number] TUBING, PRESSURE INJECTION [id number] 14:02 NAMIC 72" Used 72" *[id number] 13:13 NYCOMED OMNIPAQUE, 350 MG, 150ML 150ML [id number] Used 14:00 NYCOMED OMNIPAQUE, 350 MG, 50ML 50ML [id number] Used Equipment Model, Serial, Lot Number and Expiration Data Description Model Number Serial Number Lot Number Expiration Date JR 5.0 DXTERITY CATHETER [id number] 04-24-2020 History: Current Medications Medication Dosage/Unit Route Frequency Last Date/Time Taken Beta Mckenna Statins (any) ASA PLAVIX Imdur ELIQUIS History: Allergies Allergy Reaction lisinopril Anaphylaxis JUST FOR MEN Shortness of Breath History: Risk Factors Family History of Hypertension Dyslipidemia Previous [place] Previous Heart Failure Premature CAD Yes Yes No Yes No Prior Valve Prior PCI Prior PCIDate Prior CABG Surgery No Yes 12/01/2017 No Cerebrovascular Peripheral Artery Chronic Lung On Dialysis Diabetes Diabetes Therapy Disease Disease Disease No Yes No Yes Yes Diet History: Symptoms/Diagnosis Selection Items Chest pain History: Stress Tests Stress or Imaging Studies Performed No History: Arrhythmias Selection Items Atrial fibrillation History: Other Disease Selection Items COPD HTN History: [place]/CV Data Previous Cath Date 06/07/2017 History: Other Current Smoker Method Packs a Day Years Used Pack Years Yes Cigarettes 1 15 15 Labs Hgb (g/dl) Hct (%) WBC (l/cumm) Platelets (thousands) 11.60-17.00 35.00-51.00 4.00-11.00 150.00-450.00 15.2 46 4 139 Glucose (mg/dl) BUN (mg/dl) Creatinine (mg/dl) BUN:Creatinine (1:x) 74.00-106.00 7.00-18.00 0.50-1.30 10.00-20.00 77 9 0.5 18 Na (meq/l) K (meq/l) 136.00-145.00 3.50-5.10 146 3.6 INR (PTT:PT) 0.90-1.10 1 Troponin I (ng/ml) CPK (u/l) CPK-MB (ng/ML) 0.02-0.05 26.00-308.00 0.50-3.60 0.02 368 5.1 Medication Medication Total Dose (Bolus/Oral) Medication Total Dosage/Unit 1% XYLOCAINE 5 mL FENTANYL 100 mcg HEPARIN 3000 units NTG (IC) 200 mcg VERSED 4 mg Medications (Bolus/Oral) Medication Time Given Dosage/Unit Administered By Reason VERSED 03/17/2018 1:29:40 PM 2 mg Alexis Ballesteros RN 2 mg VERSED given in lab by Alexis Ballesteros RN in Left Forearm via Peripheral IV. Ordered by Gagan Martinez. FENTANYL 03/17/2018 1:30:27 PM 50 mcg Alexis Ballesteros RN 50 mcg FENTANYL given in lab by Alexis Ballesteros RN in Left Forearm via Peripheral IV. Ordered by Vladimir Martinez. 1% XYLOCAINE 03/17/2018 1:39:50 PM 5 mL Vladimir Martinez 5 mL 1% XYLOCAINE given in lab by Vladimir Martinez in Right Radial via Subcutaneous. VERSED 03/17/2018 1:41:25 PM 1 mg Alexis Ballesteros RN 1 mg VERSED given in lab by Alexis Ballesteros RN in Left Forearm via Peripheral IV. Ordered by Gagan Martinez. FENTANYL 03/17/2018 1:42:18 PM 50 mcg Alexis Ballesteros RN 50 mcg FENTANYL given in lab by Alexis Ballesteros RN in Left Forearm via Peripheral IV. Ordered by Vladimir Martinez. HEPARIN 03/17/2018 1:45:50 PM 3000 units Alexis Ballesteros RN 3000 units HEPARIN given in lab by Alexis Ballesteros RN in Left Forearm via Peripheral IV. Ordered by Vladimir Piedra. NTG (IC) 03/17/2018 1:46:08 PM 200 mcg Vladimir Martinez 200 mcg NTG (IC) given in lab by Vladimir Martinez in Right Radial via Intra-arterial. VERSED 03/17/2018 1:46:39 PM 1 mg Alexis Ballesteros RN 1 mg VERSED given in lab by Alexis Ballesteros RN in Left Forearm via Peripheral IV. Ordered by Gagan Martinez. Medication (Drip) Medication Time Given Dosage/Unit Concentration/Unit Diluent (ml) Solution IV Solutions 03/17/2018 1:14:14 PM 50 mL (IV) NaCl .9 IV Solutions given in lab by Alexis Ballesteros RN in Left Forearm via Peripheral IV. Pump/Drip Flow using NaCl .9. Initial Case Assessment Cardiovascular HR Rhythm Chest Pain 70 a-fib 0 Edema Present Skin color Skin None Normal Warm Dry Circulatory - Right Pulses Dorsalis Pedis Femoral Radial 2 2 2 Scale (0,1,2,3,4,d) Circulatory - Left Pulses Dorsalis Pedis Femoral Radial 2 2 Scale (0,1,2,3,4,d) Neurological State Oriented to time-place- Alert Moves all extremities person Chronological Log Time Study Chronological Log 13:07:34 Patient arrived via Bed. 13:07:35 Patient Name, D.O.B, / Armband Verified By R.N. 13:07:36 Consent signed by the physician and the patient and verified by the Strategy Director staff. 13:07:37 Pre-op and post- op instructions given; patient acknowledges understanding of instructions. 13:07:37 Verbal Stimulation=2 Physical Stimulation=2 Airway=2 Respiration=2 TOTAL=8. (0=absent, 1=li mited, 2=present) 13:13:36 Allens test performed on the right radial and ulnar artery. 13:13:38 Patient has been NPO for More than 6Hrs. 13:13:39 Skin Breakdown- none per pt 13:13:52 Patient Warmer Placed on the Table. 13:13:53 Tommy Prominences Protected 13:13:54 A # 20 IV was noted in the Forearm (left). Grade = 0 13:13:55 A # 18 IV was noted in the Forearm (right). Grade = 0 13:14:14 IV Solutions given in lab by Alexis Ballesteros RN in Left Forearm via Peripheral IV. Pump/Drip F low using NaCl .9. Assessment: Initial Case, HR=70 BPM, Rhythm=a-fib, Chest Pain=0, Edema=None, Color=Normal, Skin = Warm, Dry Right Pulses: Keshawn Ped=2, Femoral=2, Radial=2 13:14:32 Left Pulses: Keshawn Ped=2, Femoral=2 Neurological: State=Alert, Ox3, BETANCOURT Vitals capture started with the following parameters, Patient=Adult, Interval=5 min, Initial Pr yyvwwu=456 mmHg, 13:14:56 Deflation Rate=5 mmHg, Cuff placed on Left Arm 13:15:34 HR=70 bpm, UHBQ=759/97 mmhg, NbU7=736.0 %, Resp=10 B/min, Pain=0, Ken=10, Rodriguez=2 13:18:45 Reference ECG taken 13:20:27 HR=75 bpm, BLUX=793/92 mmhg, SpO2=99.0 %, Resp=13 B/min, Pain=0, Ken=10, Rodriguez=2 13:23:56 Right Radial and groin(s) prepped with 2% chlorhexidine, and draped after a 3 min. waiting time. 13:25:28 HR=82 bpm, DENZ=358/103 mmhg, SpO2=98.0 %, Resp=8 B/min, Pain=0, Ken=10, Rodriguez=2 13:28:00 MD arrived. 13:29:40 2 mg VERSED given in lab by Alexis Ballesteros RN in Left Forearm via Peripheral IV. Ordered by Vladimir Lentz. 13:30:27 50 mcg FENTANYL given in lab by Alexis Ballesteros RN in Left Forearm via Peripheral IV. Ordered by Vladimir Martinez. 13:30:29 HR=80 bpm, CSPC=113/105 mmhg, Resp=11 B/min, Pain=0, Ken=10, Rodriguez=2 13:32:21 Pressure channel 1 zeroed. 13:35:30 HR=76 bpm, HTHW=883/92 mmhg, SpO2=97 %, Resp=16 B/min, Pain=0, Ken=10, Rodriguez=2 Time Out. Correct patient, correct procedure, correct physician, labs, allergies, and equipment verified with section laborer 13:38:37 team present. Fire risk assesment completed (see hard stop sheet for coding). Time Out Conc urred by and individual staff in procedure. 13:38:50 Case Start 13:39:50 5 mL 1% XYLOCAINE given in lab by Vladimir Martinez in Right Radial via Subcutaneous. 13:40:29 HR=75 bpm, JLGF=901/84 mmhg, Resp=15 B/min, Pain=0, Ken=10, Rodriguez=2 13:41:25 1 mg VERSED given in lab by Alexis Ballesteros RN in Left Forearm via Peripheral IV. Ordered by Vladimir Lentz. 13:42:18 50 mcg FENTANYL given in lab by Alexis Ballesteros RN in Left Forearm via Peripheral IV. Ordered by Vladimir Martinez. 13:45:12 Access site was Right Radial Artery. 13:45:28 HR=96 bpm, ZBSC=299/90 mmhg, SpO2=96.0 %, Resp=13 B/min, Pain=0, Ken=10, Rodriguez=2 A SHEATH, FR6 RADIAL PRELUDE EASE 11CM FR 6 was advanced into the Radial (right) using the Perc utaneous 13:45:40 technique. 13:45:50 3000 units HEPARIN given in lab by Alexis Ballesteros RN in Left Forearm via Peripheral IV. Order ed by Vladimir Martinez. 13:46:08 200 mcg NTG (IC) given in lab by Vladimir Martinez in Right Radial via Intra-arterial. 13:46:39 1 mg VERSED given in lab by Alexis Ballesteros RN in Left Forearm via Peripheral IV. Ordered by Vladimir Lentz. A JR 5.0 DXTERITY CATHETER fr 5 was advanced over a wire. OMNIPAQUE, 350 MG, 150ML 150ML was us ed for 13:48:13 injections. 13:49:03 The RCA was injected and visualized at various angles. OMNIPAQUE, 350 MG, 150ML 150ML used . 13:50:29 HR=84 bpm, CAND=636/85 mmhg, SpO2=95 %, Resp=13 B/min, Pain=0, Ken=10, Rodriguez=2 After removing the current catheter a JL 3.5 INFINITI CATHETER FR 6 was advanced over a WIRE, E XCHANGE 260CM 13:51:02 3MMJ 260CM. After removing the current catheter a JL 5.0 INFINITI CATHETER FR 6 was advanced over a WIRE, E XCHANGE 260CM 13:53:30 3MMJ 260CM. Recorded Pressure: Ao, HR=91, Condition=Condition 1 13:54:14 (Aorta) Ao 108/90/99 13:54:33 The LCA was injected and visualized at various angles. OMNIPAQUE, 350 MG, 150ML 150ML used . 13:55:31 HR=81 bpm, NEUN=409/80 mmhg, Resp=12 B/min, Pain=0, Ken=10, Rodriguez=2 13:56:34 Catheter was removed A PIGTAIL ANG. 145 INFINITI CATHETER FR 6 was advanced over a wire. OMNIPAQUE, 350 MG, 150ML 15 0ML was 13:58:52 used for injections. Recorded Pressure: LV, HR=79, Condition=Condition 1 13:59:01 (Left Ventricle) LV 111/5/6 13:59:31 The LV was injected at 10 cc/sec for a total of 30. OMNIPAQUE, 350 MG, 50ML 50ML used. 14:00:28 HR=83 bpm, UPIF=912/91 mmhg, Resp=19 B/min, Pain=0, Ken=10, Rodriguez=2 14:00:55 Catheter was removed 14:01:42 Case End (Physician broke scrub) Radial Compression Device Used. 13 mLs of air placed in BAND, RADIAL COMPRESSION TR SHORT 24 24 CM. Affected 14:02:01 hand ~O2 SATURATION~ % O2 saturation. 14:02:12 No case complications noted. 14:02:23 Cine recording checked. 14:02:26 Bedside Report will be given. 14:02:30 A Left Heart Cath was performed. 14:05:31 HR=88 bpm, ACDV=857/84 mmhg, SpO2=94.0 %, Resp=13 B/min, Pain=0, Ken=10, Rodriguez=2 14:08:49 Vitals capture stopped. 14:10:00 Patient moved to stretcher End Study - Contrast Media Used In Study Contrast Total Opened (mL) Total Used (mL) Total Wasted (mL) Omnipaque 50 50 0 End Study - Maximum Contrast Load Max Contrast Load (mL) 1040.0 End Study - Radiation Exposure Fluoro Time (minutes) 1.9 End Study - Patient Disposition Complications Transferred To Interventional Outcome No Telemetry Bed No attempt made
--- NOTE | 2018-03-17 14:40 | MA ---
cc: Vladimir Martinez MD DATE: 03/17/2018 INDICATIONS: Nonsustained ventricular tachycardia. PROCEDURE PERFORMED: 1. Fluoroscopy with interpretation. 2. Left heart catheterization. 3. Left ventriculography. 4. Coronary angiography. METHOD: The risks, benefits and alternatives discussed with the patient. The patient understood and consented to the procedure. The patient was brought into the catheterization lab and placed on the catheterization table. The right wrist was prepped and draped in sterile fashion. The right wrist was anesthetized with 2% lidocaine. The right radial artery was cannulated and a 6-Bhutanese 7 cm sheath was placed without difficulty. CORONARY ANGIOGRAPHY: 1. Left main coronary artery is angiographically normal. 2. Left anterior descending coronary artery has minor luminal irregularities. There is a diagonal branch with 40-50% stenosis. 3. Left circumflex is a dominant vessel giving rise to a posterior descending branch. Left circumflex has a ramus intermedius branch with a stent present, which is widely patent. The remainder of the circumflex has mild luminal irregularities in 2 two obtuse marginal branches. There is a left-sided posterior descending branch, which also has moderate diffuse disease, but severity shows about 40%, nothing high grade. Right coronary artery is a nondominant vessel. There is about a 70% stenosis in the small acute marginal branch. LEFT HEART CATHETERIZATION: Intraventricular hemodynamics show 111/5 mmHg. LEFT VENTRICULOGRAPHY: Left ventriculography is in the right anterior oblique view using a 30 mL contrast injection with good opacification. There was some ectopy, but ejection fraction appeared to be about 40-45%. No mitral regurgitation noted. CONCLUSIONS: 1. Mild to moderately reduced left ventricular systolic function, visually estimated 40-45%. 2. Mild nonobstructive coronary disease. PLAN: The patient had several runs of nonsustained VT with now slightly reduced left ventricular systolic function. The patient is on maximum beta darrius. We will followup with a 2D echocardiogram for more well defined EF. I would like to get electrophysiology opinion just to make sure they do not have any further suggestions. We will continue with guideline directed medical therapy. Vladimir Martinez MD LUIS MIGUEL/TL , 02:15 PM , 02:38 PM
[2018-03-17] MEDS ORDERED: Iohexol 350 MG/ML 50 ML Vial (for Cath Lab) IV.SIG ONE (14:46)
--- NOTE | 2018-03-17 16:00 | P.PNIM ---
Subjective Interval history: Pt had a 15 beat run of V-tach overnight. Pt was seen by Cardiology this morning and underwent LHC with Minor Physical Exam Vital signs: Vital Signs 03/16/18 16:00 03/16/18 18:00 03/16/18 19:00 Temperature Pulse Rate 84 83 82 Respiratory Rate Blood Pressure Pulse Oximetry 03/16/18 19:55 03/16/18 20:00 03/16/18 20:11 Temperature 98.7 F Pulse Rate 90 84 90 Respiratory Rate 16 20 Blood Pressure 123/95 H Pulse Oximetry 96 99 03/16/18 21:00 03/16/18 22:00 03/16/18 23:00 Temperature Pulse Rate 82 82 87 Respiratory Rate Blood Pressure Pulse Oximetry 03/17/18 00:00 03/17/18 01:00 03/17/18 02:00 Temperature 96.4 F L Pulse Rate 76 78 76 Respiratory Rate 20 Blood Pressure 115/78 Pulse Oximetry 98 03/17/18 03:00 03/17/18 04:00 03/17/18 05:00 Temperature 98.4 F Pulse Rate 84 74 69 Respiratory Rate 18 Blood Pressure 121/88 Pulse Oximetry 98 03/17/18 06:00 03/17/18 07:00 03/17/18 08:00 Temperature Pulse Rate 73 84 76 Respiratory Rate Blood Pressure Pulse Oximetry 03/17/18 08:08 03/17/18 08:29 03/17/18 09:00 Temperature 98.3 F Pulse Rate 74 76 82 Respiratory Rate 18 16 Blood Pressure 114/83 Pulse Oximetry 98 93 L 03/17/18 10:09 03/17/18 11:00 03/17/18 11:24 Temperature 98.3 F Pulse Rate 75 87 70 Respiratory Rate 16 Blood Pressure 120/91 H Pulse Oximetry 99 03/17/18 12:09 03/17/18 13:00 03/17/18 14:30 Temperature 97.5 F L Pulse Rate 82 78 81 Respiratory Rate 16 Blood Pressure 119/86 Pulse Oximetry 99 03/17/18 14:39 Temperature Pulse Rate 81 Respiratory Rate Blood Pressure Pulse Oximetry Intake & Output 03/16/18 03/17/18 03/17/18 18:59 06:59 18:59 Intake Total 980 / 980 720 / 720 Output Total 400 / 400 Balance 580 / 580 720 / 720 Weight 104 kg Intake: Oral 980 / 980 720 / 720 Output: Urine 400 / 400 Other: # Voids 3 Date of Last Bowel Movement 03/13/18 03/13/18 Narrative: GENERAL: Well-developed well-nourished. In no acute distress. CARDIO: Irregular rate and rhythm. Chest wall tenderness reproducible to palpation of the anterior chest wall. RESP: Breath sounds equal and clear bilaterally. ABD: +BS, soft ND/Nt EXT: No edema. Results - Labs CBC & Chem 7: 03/16/18 04:41 03/14/18 21:10 - Imaging Chest X-Ray 03/14/18 21:08 CONCLUSION: No acute cardiopulmonary process. Assessment and Plan - Assessment (1) Chest pain Code(s): R07.9 - Chest pain, unspecified Status: Acute Plan: Chest pain Syncope - Pt is a 47 y/o male with CAD with chronic angina due to small vessel disease, atrial fibrillation, HTN, HLD who presented after syncopal episode. Pt was lifting weights then later syncopized and then complained of left chest pain, could be msk cp component - Pt EKG and CE's not consistent with ACS - Pt reports to me palpitations prior to the syncope episode. - Telemetry initially showed some A. fib/RVR breakthrough - Pt was placed on Heparin gtt in ED but this was stopped and Eliquis was started for A. fib - Overnight on 03/16, pt had episodes of nonsustained wide-complex tachycardia; 15 beats, 6 beats, and 3 beats of what appears to be V. tach. Patient asymptomatic with episodes. - Pt underwent LHC on 03/17 --> Mild to moderately reduced left ventricular systolic function, visually estimated 40-45%, mild nonobstructive coronary disease. - The patient is on maximum beta darrius. - Repeat 2D echocardiogram is ordered - Consult to Electrophysiology is ordered - Cont antiplt/Imdur/Statin/BB CAD/hx posterolateral branch small vessel dz - Pt had previous LHC in 12/2017 with first obtuse marginal branch JACQUELINE. COPD - Pt had been having some wheezing, improved with Duonebs Chronic A. fib - See above - Cont BB and Eliquis - Telemetry HTN - Stable on current meds Hyperlipidemia - Cont. statin Hx of embolic CVA - Attending Attestation The exam, history, and the medical decision-making described in the above note were completed with the assistance of the mid-level provider. I reviewed and agree with the findings presented. I attest that I had a cqfe-ko-kodx encounter with the patient on the same day, and personally performed and documented my assessment and findings in the medical record. Patient examined. Assessment and plan formulated with Brittani Reese PA-C. I agree with the above.
--- NOTE | 2018-03-17 18:51 | MB ---
cc: Laquita Red MD DATE: 03/17/2018 REASON FOR CONSULTATION: Nonsustained ventricular tachycardia. HISTORY OF PRESENT ILLNESS: Mr. Hoang is a 47-year-old gentleman with history of high blood pressure, hyperlipidemia, coronary artery disease, was at the gym on Saturday. He was bench-pressing. Subsequently, he feels like there is something popping up in his chest. He decided to come to the emergency room. At that point, non-STEMI was declared. The patient was put on adequate medication. Developed episode of nonsustained ventricular tachycardia. I was consulted for further evaluation and management. ALLERGIES: LISINOPRIL. SOCIAL HISTORY: The patient smoked regularly, but used to drink, but stopped drinking a month ago. FAMILY HISTORY: Noncontributory to current medical condition. MEDICATIONS AT HOME: He was on aspirin, atorvastatin 80 mg a day, Plavix 75 mg a day, 120 mg a day, metoprolol 50 mg twice a day. Currently in the hospital, Eliquis 5 mg twice a day was added, he is on Catapres, he is on . REVIEW OF SYSTEMS: Currently, referred no chest pain, no chest discomfort, no palpitation, no fever. PHYSICAL EXAMINATION: GENERAL: Alert, fully oriented. VITAL SIGNS: His blood pressure is 119/86, pulse 76, respiratory rate 18. LUNGS: Ventilated. CARDIOVASCULAR: S1, S2. No gallop. No murmur. ABDOMEN: Soft. No mass. No bruit. EXTREMITIES: Left arm post heart catheterization. ELECTROCARDIOGRAM: Shows atrial fibrillation, diffuse ST changes, some PVCs. LABORATORY DATA: Hemoglobin is 15.2, white blood cell 4.0, reported platelet was normal, I do not have a number. INR 1.0. Potassium is 2.6, creatinine 0.80. Troponin 0.02. ASSESSMENT AND RECOMMENDATIONS: Mr. Hoang has coronary artery disease. Left heart catheterization was performed today, showed no occlusion, no need for revascularization. Ejection fraction is around 35-40%. He was having episode of nonsustained ventricular tachycardia. He is currently on metoprolol, as well as Imdur. Blood pressure is adequate. My recommendation at this point is continue on medication. If blood pressures are low, we are going to increase the metoprolol. If the gentleman during the hospitalization develops more episode of nonsustained ventricular tachycardia, then I will consider electrophysiology study. Case extensively discussed with him. Will be monitored. Further decision in the morning. MD JORGE Savage/KARY , 06:02 PM , 06:49 PM
[2018-03-17] MEDS: Temazepam 15 MG Capsule PO PRN (21:00)
[2018-03-18] MEDS: Isosorbide Mononitrate 60 MG ER 24HR Tablet (Imdur) PO SCH (06:18)
--- NOTE | 2018-03-18 07:36 | P.PNCA ---
<Laith Braden - Last Filed: 03/18/18 07:32> Subjective Interval history: Right wrist is a little sore. Patient had some chest pain around 5 AM, similar to previous. Saw EP yesterday evening. Telemetry was A. fib, no recurrence of NSVT noted. Physical Exam Vital signs: Vital Signs 03/17/18 08:00 03/17/18 08:08 03/17/18 08:29 Temperature 98.3 F Pulse Rate 76 74 76 Respiratory Rate 18 16 Blood Pressure 114/83 Pulse Oximetry 98 93 L 03/17/18 09:00 03/17/18 10:09 03/17/18 11:00 Temperature 98.3 F Pulse Rate 82 75 87 Respiratory Rate 16 Blood Pressure 120/91 H Pulse Oximetry 99 03/17/18 11:24 03/17/18 12:09 03/17/18 13:00 Temperature Pulse Rate 70 82 78 Respiratory Rate Blood Pressure Pulse Oximetry 03/17/18 14:30 03/17/18 14:39 03/17/18 15:00 Temperature 97.5 F L Pulse Rate 81 81 76 Respiratory Rate 16 Blood Pressure 119/86 Pulse Oximetry 99 03/17/18 16:00 03/17/18 17:00 03/17/18 18:00 Temperature Pulse Rate 76 82 82 Respiratory Rate Blood Pressure Pulse Oximetry 03/17/18 19:00 03/17/18 19:42 03/17/18 20:00 Temperature 98.4 F Pulse Rate 88 74 87 Respiratory Rate 18 18 Blood Pressure 139/84 Pulse Oximetry 97 97 03/17/18 21:00 03/17/18 22:00 03/17/18 23:00 Temperature 98.6 F Pulse Rate 88 87 88 Respiratory Rate 20 Blood Pressure 138/74 Pulse Oximetry 99 03/18/18 00:00 03/18/18 01:00 03/18/18 02:00 Temperature Pulse Rate 74 77 84 Respiratory Rate 16 Blood Pressure Pulse Oximetry 03/18/18 03:00 03/18/18 04:00 03/18/18 05:00 Temperature 98.8 F Pulse Rate 79 84 75 Respiratory Rate 16 18 Blood Pressure 114/90 Pulse Oximetry 97 03/18/18 06:00 03/18/18 07:00 Temperature 98.1 F Pulse Rate 82 83 Respiratory Rate 16 Blood Pressure 123/87 Pulse Oximetry Intake & Output 03/17/18 03/18/18 03/18/18 18:59 06:59 18:59 Intake Total 960 / 960 Balance 960 / 960 Weight 233 lb 7.512 oz Intake: Oral 960 / 960 Other: # Voids 2 2 Narrative: GENERAL: Well-developed well-nourished. In no acute distress. NECK: No carotid bruits. No JVD. CARDIOVASCULAR: Regular rate and rhythm. No murmur appreciated. Radial and ulnar pulses intact. RESPIRATORY: No accessory muscle use. Clear to auscultation. Breath sounds equal bilaterally. MUSCULOSKELETAL: No clubbing or cyanosis. No edema. NEUROLOGICAL: Awake and alert. Normal speech. Assessment and Plan - Plan 47-year-old male with past medical history of CAD with chronic angina due to small vessel disease, atrial fibrillation, HTN, HLD who presented after syncopal episode. Syncope: Unclear etiology. Possibly arrhythmogenic, continue telemetry monitoring. NSVT: LHC with no obstructive cause. Metoprolol was increased to 100 mg. EP consulted, continue medications at this time, consider EP study further episodes. CAD with chronic angina: [facility] 03/17 show mild, nonobstructive CAD. Continue aspirin, statin, Plavix, Imdur. Atrial fibrillation: Metoprolol for heart rate control. Elevated Chadsvasc score, started Eliquis. Noncardiac chest pain: Patient remains with pleuritic vs musculoskeletal chest pain. Further disposition per electrophysiology. <Etienne Prado - Last Filed: 03/18/18 08:08> Physical Exam Vital signs: Vital Signs 03/17/18 08:08 03/17/18 08:29 03/17/18 09:00 Temperature 98.3 F Pulse Rate 74 76 82 Respiratory Rate 18 16 Blood Pressure 114/83 Pulse Oximetry 98 93 L 03/17/18 10:09 03/17/18 11:00 03/17/18 11:24 Temperature 98.3 F Pulse Rate 75 87 70 Respiratory Rate 16 Blood Pressure 120/91 H Pulse Oximetry 99 03/17/18 12:09 03/17/18 13:00 03/17/18 14:30 Temperature 97.5 F L Pulse Rate 82 78 81 Respiratory Rate 16 Blood Pressure 119/86 Pulse Oximetry 99 03/17/18 14:39 03/17/18 15:00 03/17/18 16:00 Temperature Pulse Rate 81 76 76 Respiratory Rate Blood Pressure Pulse Oximetry 03/17/18 17:00 03/17/18 18:00 03/17/18 19:00 Temperature 98.4 F Pulse Rate 82 82 88 Respiratory Rate 18 Blood Pressure 139/84 Pulse Oximetry 97 03/17/18 19:42 03/17/18 20:00 03/17/18 21:00 Temperature Pulse Rate 74 87 88 Respiratory Rate 18 Blood Pressure Pulse Oximetry 97 03/17/18 22:00 03/17/18 23:00 03/18/18 00:00 Temperature 98.6 F Pulse Rate 87 88 74 Respiratory Rate 20 16 Blood Pressure 138/74 Pulse Oximetry 99 03/18/18 01:00 03/18/18 02:00 03/18/18 03:00 Temperature 98.8 F Pulse Rate 77 84 79 Respiratory Rate 16 Blood Pressure 114/90 Pulse Oximetry 97 03/18/18 04:00 03/18/18 05:00 03/18/18 06:00 Temperature Pulse Rate 84 75 82 Respiratory Rate 18 Blood Pressure Pulse Oximetry 03/18/18 07:00 Temperature 98.1 F Pulse Rate 83 Respiratory Rate 16 Blood Pressure 123/87 Pulse Oximetry Intake & Output 03/17/18 03/18/18 03/18/18 18:59 06:59 18:59 Intake Total 960 / 960 Balance 960 / 960 Weight 105.9 kg Intake: Oral 960 / 960 Other: # Voids 2 2 Assessment and Plan - Plan No further NSVT, appreciate Dr Red recommendations. Will await if he wishes to perform EP study and if not, ok to d/c today on current medical management.
[2018-03-18] MEDS: Metoprolol Tartrate 100 MG Tablet PO SCH (09:42)
[2018-03-18] MEDS: Acetaminophen 325 MG Tablet PO PRN ×2 (09:43→17:13)
--- NOTE | 2018-03-18 14:31 | P.PN ---
Subjective Interval history: Feeling better No palpitation Physical Exam Vital signs: Vital Signs 03/17/18 14:30 03/17/18 14:39 03/17/18 15:00 Temperature 97.5 F L Pulse Rate 81 81 76 Respiratory Rate 16 Blood Pressure 119/86 Pulse Oximetry 99 03/17/18 16:00 03/17/18 17:00 03/17/18 18:00 Temperature Pulse Rate 76 82 82 Respiratory Rate Blood Pressure Pulse Oximetry 03/17/18 19:00 03/17/18 19:42 03/17/18 20:00 Temperature 98.4 F Pulse Rate 88 74 87 Respiratory Rate 18 18 Blood Pressure 139/84 Pulse Oximetry 97 97 03/17/18 21:00 03/17/18 22:00 03/17/18 23:00 Temperature 98.6 F Pulse Rate 88 87 88 Respiratory Rate 20 Blood Pressure 138/74 Pulse Oximetry 99 03/18/18 00:00 03/18/18 01:00 03/18/18 02:00 Temperature Pulse Rate 74 77 84 Respiratory Rate 16 Blood Pressure Pulse Oximetry 03/18/18 03:00 03/18/18 04:00 03/18/18 05:00 Temperature 98.8 F Pulse Rate 79 84 75 Respiratory Rate 16 18 Blood Pressure 114/90 Pulse Oximetry 97 03/18/18 06:00 03/18/18 07:00 03/18/18 08:00 Temperature 98.1 F Pulse Rate 82 83 96 H Respiratory Rate 16 Blood Pressure 123/87 Pulse Oximetry 97 97 03/18/18 08:52 03/18/18 09:00 03/18/18 10:00 Temperature Pulse Rate 87 80 95 H Respiratory Rate 16 Blood Pressure Pulse Oximetry 03/18/18 11:10 03/18/18 11:21 03/18/18 12:33 Temperature 98.3 F Pulse Rate 90 62 98 H Respiratory Rate 16 Blood Pressure 123/98 H Pulse Oximetry 99 03/18/18 13:54 Temperature Pulse Rate 66 Respiratory Rate 16 Blood Pressure Pulse Oximetry Intake & Output 03/17/18 03/18/18 03/18/18 18:59 06:59 18:59 Intake Total 960 / 960 Balance 960 / 960 Weight 105.9 kg Intake: Oral 960 / 960 Other: # Voids 2 2 - Constitutional no acute distress - Routine HEENT Exam Head: Present: normocephalic Eye: Present: PERRL ENT: Present: mucous membranes moist - Routine Neck Exam Present: normal carotid upstroke - Routine Respiratory Exam Present: CTA bilaterally - Routine Cardiovascular Exam Present: RRR, S1, S2 - Routine Abdominal Exam Present: soft - Routine Extremities Exam Present: normal capillary refill - Routine Skin Exam Present: intact - Routine Neurological Exam Present: alert, oriented X3 Results - Labs CBC & Chem 7: 03/16/18 04:41 03/14/18 21:10 Assessment and Plan - Assessment (1) Non-ST elevated myocardial infarction Code(s): I21.4 - Non-ST elevation (NSTEMI) myocardial infarction Status: Acute Plan: No chest pain reported Doing well No new episode of ventricular tachycardia recorded can be DH Follow up if necessary (2) Chest pain Code(s): R07.9 - Chest pain, unspecified Status: Acute Plan: No chest pain reported
--- NOTE | 2018-03-18 17:28 | P.DS ---
<Brittani Reese E - Last Filed: 03/18/18 18:03> Date of admission: 03/14/18 22:53 Primary care physician: Magdy Guerra Attending physician on discharge: Nigel Sanchez Anticipated date of discharge: 03/18/18 Brief History from admission: HPI narrative: Patient is a 47-year-old male who was bench pressing today at the gym he added more weight than normal and then he felt a strain pop in his left chest the weight back into the rack stood up from the bench press and he syncopized temporarily had a white out of his vision landed on his right elbow in the ER he only has pain when he moves his arm it is intermittent it is related to muscle movement is made worse with using the arm worse with deep inspiration denies any radiation it does not occur at rest and he thinks it is related to the overuse of the muscle when he bench press today he is not taking any medication to alleviate the symptoms and he has not had this symptom before Complete Quality Measures for STEMI Alert Patients Patient does state he had stent placement within last year. In er was found to be in atrial fib with controlled ventricular response ,but did have positive troponin. Will admit and consult cardiology. DS: Diagnosis - Discharge Diagnosis (1) Chest pain Status: Acute (2) NSVT (nonsustained ventricular tachycardia) Status: Acute (3) Non-ST elevated myocardial infarction Status: Acute (4) Atrial fibrillation Status: Chronic DS: Medications - Discharge Medications Prescriptions: apixaban [Eliquis] 5 mg PO BID #60 tab metoprolol tartrate 100 mg PO BID #60 tab DS: Summary Hospital Course: Chest pain Syncope NSVT - Pt is a 47 y/o male with CAD with chronic angina due to small vessel disease, atrial fibrillation, HTN, HLD who presented after syncopal episode. Pt was lifting weights then later syncopized and then complained of left chest pain, could be msk cp component. Pt EKG and CE's not consistent with ACS. Pt reported palpitations prior to the syncope episode. It was thought that the etiology of the syncope could possibly be arrhythmogenic. Telemetry initially showed some A. fib/RVR breakthrough. Pt was placed on Heparin gtt in ED but this was stopped and Eliquis was started for A. fib. Overnight on 03/16, pt had episodes of nonsustained wide-complex tachycardia; 15 beats, 6 beats, and 3 beats of what appears to be V. tach. Patient asymptomatic with episodes. Pt underwent LHC on 03/17 --> Mild to moderately reduced left ventricular systolic function, visually estimated 40-45%, mild nonobstructive coronary disease. The patient beta darrius increased to Metoprolol 100mg BID. Repeat 2D echocardiogram is pending reading by Cardiology. EP was consulted on 03/17 and recommended to continue medical management at this time, consider EP study if any further episodes. Pt will be continued on Plavix/Eliquis/Imdur/Statin/BB at discharge. Pt will need to followup with Dr. Martinez in 1-[address] Martinez ordering outpt prolonged event monitor as an outpt. Pt will need to followup with his PCP, Dr. Guerra, in 1 week, call for an appt. CAD/hx posterolateral branch small vessel dz - Pt had previous LHC in 12/2017 with first obtuse marginal branch JACQUELINE. COPD - Pt had been having some wheezing which improved with Duonebs Chronic A. fib - See above - Cont BB and Eliquis HTN - Stable on current meds Hyperlipidemia - Cont. statin Hx of embolic CVA - Time Spent with Patient Total time spent providing and/or coordinating discharge services: Greater than 30 minutes - Quality: VTE Deep Vein Thrombosis/Pulmonary Embolism Present on Admission: No Exam Vital signs: Vital Signs 03/17/18 18:00 03/17/18 19:00 03/17/18 19:42 Temperature 98.4 F Pulse Rate 82 88 74 Respiratory Rate 18 18 Blood Pressure 139/84 Pulse Oximetry 97 03/17/18 20:00 03/17/18 21:00 03/17/18 22:00 Temperature Pulse Rate 87 88 87 Respiratory Rate Blood Pressure Pulse Oximetry 97 03/17/18 23:00 03/18/18 00:00 03/18/18 01:00 Temperature 98.6 F Pulse Rate 88 74 77 Respiratory Rate 20 16 Blood Pressure 138/74 Pulse Oximetry 99 03/18/18 02:00 03/18/18 03:00 03/18/18 04:00 Temperature 98.8 F Pulse Rate 84 79 84 Respiratory Rate 16 18 Blood Pressure 114/90 Pulse Oximetry 97 03/18/18 05:00 03/18/18 06:00 03/18/18 07:00 Temperature 98.1 F Pulse Rate 75 82 83 Respiratory Rate 16 Blood Pressure 123/87 Pulse Oximetry 97 03/18/18 08:00 03/18/18 08:52 03/18/18 09:00 Temperature Pulse Rate 96 H 87 80 Respiratory Rate 16 Blood Pressure Pulse Oximetry 97 03/18/18 10:00 03/18/18 11:10 03/18/18 11:21 Temperature 98.3 F Pulse Rate 95 H 90 62 Respiratory Rate 16 Blood Pressure 123/98 H Pulse Oximetry 99 03/18/18 12:33 03/18/18 13:00 03/18/18 13:54 Temperature Pulse Rate 98 H 68 66 Respiratory Rate 16 Blood Pressure Pulse Oximetry 03/18/18 14:00 Temperature Pulse Rate 120 H Respiratory Rate Blood Pressure Pulse Oximetry Intake & Output 03/17/18 03/18/18 03/18/18 18:59 06:59 18:59 Intake Total 960 / 960 Balance 960 / 960 Weight 105.9 kg Intake: Oral 960 / 960 Other: # Voids 2 2 Narrative: GENERAL: Well-developed well-nourished. In no acute distress. CARDIO: Irregular rate and rhythm. Chest wall tenderness reproducible to palpation of the anterior chest wall. RESP: Breath sounds equal and clear bilaterally. ABD: +BS, soft ND/Nt EXT: No edema. Results Procedures completed during hospitalization: [facility] on 03/17 --> Mild to moderately reduced left ventricular systolic function, visually estimated 40-45%, mild nonobstructive coronary disease - Impressions ITS Impressions Chest X-Ray 03/14/18 21:08 CONCLUSION: No acute cardiopulmonary process. <Nigel Sanchez - Last Filed: 06/20/18 12:02> Date of admission: 03/14/18 22:53 Primary care physician: Magdy Guerra DS: Diagnosis - Discharge Diagnosis (1) Chest pain Status: Acute DS: Summary Hospital Course: The exam, history, and the medical decision-making described in the above note were completed with the assistance of the mid-level provider. I reviewed and agree with the findings presented. I attest that I had a [id number] encounter with the patient on the same day, and personally performed and documented my assessment and findings in the medical record. Patient examined. Assessment and plan formulated with Brittani [place] PA-C. I agree with the above. - Time Spent with Patient Total time spent providing and/or coordinating discharge services: Greater than 30 minutes Results - Impressions ITS Impressions Chest X-Ray 03/14/18 21:08 CONCLUSION: No acute cardiopulmonary process. Discharge Plan - Discharge Order Discharge Orders: Discharge Order (Routine); Ordered 03/18/18 Ordered By: Jet Bazan - Discharge Details Anticipated Discharge Date: 03/18/18 - Physicians Team Primary Care Provider: Magdy Guerra Attending Provider: Jet Bazan Other Providers: Etienne Prado DO ; Laquita Red MD ; Laith Braden PA
== END 2018-03-18 19:00 | disposition home or self-care (01) ==
LOC: NEPC 20:14 → NEDA 22:53 → HCIS 03-15 03:37
PROVIDERS: ADMIT Hospitalist; ATTEND Hospitalist
DX: Z86.73 Personal history of transient ischemic attack (TIA), and cerebral infarction without residual deficits; I21.4 Non-ST elevation (NSTEMI) myocardial infarction; I48.2 Chronic atrial fibrillation; Z95.5 Presence of coronary angioplasty implant and graft; J44.9 Chronic obstructive pulmonary disease, unspecified; I10 Essential (primary) hypertension; F17.210 Nicotine dependence, cigarettes, uncomplicated; I25.119 Atherosclerotic heart disease of native coronary artery with unspecified angina pectoris; I47.1 Supraventricular tachycardia; Z79.899 Other long term (current) drug therapy; Z79.82 Long term (current) use of aspirin; E78.5 Hyperlipidemia, unspecified

== ENCOUNTER 2018-03-25 19:58 | Observation (INO) ==
[2018-03-25 20:23] VITALS: TEMP 98.6
[2018-03-25 23:56] LABS: Baso # (Auto) 0.1 th/mm3 (0.0-0.2); Baso % (Auto) 0.9 % (0.0-2.0); Eos % (Auto) 0.7 % (0.0-4.0); Hematocrit 45.4 % (39.0-51.0); Hemoglobin 15.3 gm/dL (13.0-17.0); Lymph # (Auto) 3.8 th/mm3 (1.0-4.8); Mean Corpuscular HGB Conc 33.7 % (32.0-36.0); Mean Corpuscular Hemoglobin 30.1 pg (27.0-34.0); Mean Corpuscular Volume 89.6 fL (80.0-100.0); Mean Platelet Volume 6.9 fL (7.0-11.0); Mono # (Auto) 0.7 th/mm3 (0.0-0.9); Neut # (Auto) 1.3 th/mm3 (1.8-7.7); Neut % (Auto) 22.4 % (16.0-70.0); Platelet Count 164 th/mm3 (150-450); Red Blood Count 5.07 mil/mm3 (4.50-5.90); Red Cell Distribution Width 15.1 % (11.6-17.2); White Blood Count 5.9 th/mm3 (4.0-11.0)
[2018-03-26 00:16] LABS: Activated Partial Thrombo Time 25.3 sec (24.3-30.1)
--- NOTE | 2018-03-26 00:16 | XR ---
EXAM DATE: 03/26/2018 12:08 AM EDT AGE/SEX: 47 years / Male INDICATIONS: Chest pain. CLINICAL DATA: This is the patient's initial encounter. Patient reports that signs and symptoms have been present for 2 days and indicates a pain score of 6/10. MEDICAL/SURGICAL HISTORY: None. . Cardiac stent. Heart catheterization. [place] [facility] [place]. . FINDINGS: A single AP view of the chest demonstrates stable elevation of the right hemidiaphragm. Lungs are oth erwise clear. Heart size is normal. Osseous structures are intact. CONCLUSION: 1. Stable elevation of the right hemidiaphragm. 2. No acute cardiopulmonary process. Electronically signed by: Neymar Wen MD 03/26/2018 12:14 AM EDT
[2018-03-26 00:17] LABS: D-Dimer 0.53 mg/L FEU (0.00-0.50)
[2018-03-26 00:19] LABS: Alanine Aminotransferase 45 U/L (12-78); Albumin 3.9 g/dL (3.4-5.0); Anion Gap 6 meq/L (5-15); Aspartate Aminotransferase 40 U/L (15-37); Blood Urea Nitrogen 11 mg/dL (7-18); Calcium 8.3 mg/dL (8.5-10.1); Carbon Dioxide 30.1 meq/L (21.0-32.0); Chloride 110 meq/L (98-107); Glomerular Filtration Rate Greater Than 89 mL/min (>89); Glucose,Random 95 mg/dL (74-106); Lipase 78 U/L (73-393); Magnesium 1.9 mg/dL (1.5-2.5); Potassium 3.6 meq/L (3.5-5.1); Sodium 146 meq/L (136-145)
[2018-03-26 00:22] LABS: Alkaline Phosphatase 76 U/L (45-117); Creatine Kinase 697 U/L (39-308); Total Protein 7.4 g/dL (6.4-8.2); Troponin I 0.03 ng/mL (0.02-0.05)
[2018-03-26 00:35] LABS: CKMB Percent 1.3 % (0.0-4.0); Creatine Kinase MB 9.4 ng/mL (0.5-3.6)
--- NOTE | 2018-03-26 00:54 | ED ---
HPI General Chief complaint: Chest Pain Stated complaint: Palpations per patient Time Seen by Provider: 03/25/18 23:36 Source: patient Limitations: no limitations History of Present Illness HPI narrative: The patient is a 47 year old male who presents to the [facility] emergency department with a history of chest pain that he reports is been coming and going since yesterday evening. He reports that it occurs with activity. He reports that it has been frequently recurring today. He reports pain is in the center of his chest. He reports that the pain is a 10 out of 10 in severity. He reports the character the pain is a squeezing sensation. He reports having associated shortness of breath, nausea and vomiting 1, and diaphoresis. He denies having any radiation of the pain. He reports that he was recently admitted to the hospital in December and had a stent placed. He reports that he is currently on Eliquis and Plavix. 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 Martinez. On review of systems otherwise, the patient denies having any known recent fevers, cough or congestion, neck pain, abdominal pain, diarrhea, new urinary symptoms, or neurologic symptoms. Related Data Home Medications Medication Instructions Recorded Confirmed albuterol sulfate [Ventolin HFA] 2 puff INHALATION Q4-6H PRN 03/14/18 03/26/18 atorvastatin 80 mg PO HS 03/14/18 03/26/18 clopidogrel [Plavix] 75 mg PO DAILY 03/14/18 03/26/18 isosorbide mononitrate 120 mg PO QAM 03/14/18 03/26/18 Previous Rx's Medication Instructions Recorded apixaban [Eliquis] 5 mg PO BID #60 tab 03/16/18 metoprolol tartrate 100 mg PO BID #60 tab 03/16/18 Allergies Allergy/AdvReac Type Severity Reaction Status Date / Time lisinopril Allergy Severe Anaphylaxis Verified 12/18/17 14:57 JUST FOR MEN Allergy Severe Shortness Uncoded 06/06/17 11:24 of Breath Review of Systems ROS Unobtainable All other systems reviewed negative except as stated in HPI [facility] Medical History Medical History Afib (Acute) CAD (coronary artery disease) (Acute) COPD (chronic obstructive pulmonary disease) (Acute) HLD (hyperlipidemia) (Acute) HTN (hypertension) (Acute) Myocardial infarction (Acute) Surgical History Surgical History History of cardiac cath (Acute) Surgical procedure on lower extremity within past 6 months (Acute) Social History Social History Substance History: No History of Abuse Second Hand Smoke Exposure: No Smoking Status: Former smoker Tobacco Type: Cigarettes How Often Do You Have a Drink Containing Alcohol: Monthly or less Recent Travel in [facility] within the Last 8 Weeks: No Recent Out of Country Travel within the Last 8 Weeks: No Immunization History Tetanus Immunization: Unsure Hx Influenza Vaccine This Season: No Exam Const General: cooperative, no acute distress and well developed Nutritional Appearance: well nourished Orientation: alert, awake and oriented x3 HENMT Head: normocephalic and atraumatic Nose: no nasal discharge and no epistaxis Mouth: moist mucous membranes Throat: posterior oropharynx normal Eyes Sclera: normal sclerae Pupils: PERRL Neck Neck: no meningeal signs, trachea midline and no JVD Resp Effort & Inspection: no use of accessory muscles Auscultation: clear to auscultation bilaterally Cardio Rate: regular rate Rhythm: abnormal rhythm (Irregularly irregular with rate control in the 80s, telemetry is consistent with atrial fibrillation which the patient does have a history of) Heart Sounds: no murmurs GI Inspection: non-distended Palpation: soft, no hepatosplenomegaly and nontender Auscultation: normal bowel sounds Back/Spine/Pelvis Back: no CVA tenderness Skin General: dry skin (warm) Neuro General: alert, awake and oriented x3 Cranial Nerves: other Speech: speech normal Motor: strength 5/5 throughout and no movement abnormalities noted Extrem General: normal to inspection (No calf tenderness on palpation.), no clubbing, no cyanosis and no edema Psych Mood: congruent mood Affect: normal affect Judgment: judgment good Course Initial Documented Vital Signs Temperature 98.6 F 03/25/18 20:18 Pulse Rate 99 H 03/25/18 20:18 Respiratory Rate 18 03/25/18 20:18 Blood Pressure 130/74 03/25/18 20:18 Pulse Oximetry 93 L 03/25/18 20:18 Last Documented Vital Signs Temperature 98.6 F 03/25/18 20:18 Pulse Rate 69 03/26/18 04:39 Respiratory Rate 17 03/26/18 04:39 Blood Pressure 118/81 03/26/18 04:39 Pulse Oximetry 92 L 03/26/18 04:39 Medical Decision Making MDM Narrative Medical decision making narrative: During the course of the patient's emergency department visit, the patient's history, examination, and differential diagnosis were reviewed with the patient. The patient was placed on a air defense artillery officer with oximetry and frequent blood pressure monitoring. The patient had IV access obtained and blood work sent for analysis. A diagnostic evaluation was started regarding the patient's chest pain. The patient was initially provided aspirin 324 mg p.o. 1, sublingual nitroglycerin every 5 minutes 3 as needed chest pain, nitroglycerin 1 inch the chest wall. Laboratory studies are remarkable for a white count of 5.9, monocytosis at 12, hemoglobin of 15.3 with platelets of 164, PT 10, PTT 25.3, d-dimer is 0.53, therefore CTA to rule out PE was ordered. CMP is remarkable for a troponin I of 0.03, CPK 697, sodium 146, MB percent 1.3, chloride 110, calcium 8.3, AST 40 , BUN 11, lipase 78. Imaging is remarkable for a chest x-ray that shows elevation ofCTA his right hemidiaphragm which is chronic. CTA of the chest shows no evidence of pulmonary embolism, dense atherosclerotic calcification of the coronary arteries. The patient's results were discussed with the patient, including the plan of care. I explained that further testing and/ or monitoring is indicated based on the patient's history, examination, and/ or laboratory findings. Therefore, I recommended admission for additional evaluation. The patient expressed understanding and was agreeable with this plan. The patient was admitted to the hospital in stable condition and sent to a bed under the care of [facility]. Lab Data Result diagrams: 03/25/18 23:50 03/25/18 23:50 Lab Results 03/25/18 03/25/18 03/25/18 Range/Units 23:50 23:50 23:50 WBC 5.9 (4.0-11.0) th/mm3 RBC 5.07 (4.50-5.90) mil/mm3 Hgb 15.3 (13.0-17.0) gm/dL Hct 45.4 (39.0-51.0) % MCV 89.6 (80.0-100.0) fL MCH 30.1 (27.0-34.0) pg MCHC 33.7 (32.0-36.0) % RDW 15.1 (11.6-17.2) % Plt Count 164 (150-450) th/mm3 MPV 6.9 L (7.0-11.0) fL Prelim Diff (Auto) Slide review pending Neut % (Auto) 22.4 (16.0-70.0) % Lymph % (Auto) 64.0 H (9.0-44.0) % Borden % (Auto) 12.0 H (0.0-8.0) % Eos % (Auto) 0.7 (0.0-4.0) % Baso % (Auto) 0.9 (0.0-2.0) % Neut # (Auto) 1.3 L (1.8-7.7) th/mm3 Lymph # (Auto) 3.8 (1.0-4.8) th/mm3 Borden # (Auto) 0.7 (0.0-0.9) th/mm3 Eos # (Auto) 0.0 (0.0-0.4) th/mm3 Baso # (Auto) 0.1 (0.0-0.2) th/mm3 WBC Differential . Diff Scan Auto diff confirmed Differential Comment . Platelet Estimate Normal (Normal) Platelet Morphology Normal (Normal) PT 10.0 (9.8-11.6) sec INR 1.0 Ratio APTT 25.3 (24.3-30.1) sec D-Dimer Quant (PE/DVT) 0.53 H (0.00-0.50) mg/L FEU Sodium 146 H (136-145) meq/L Potassium 3.6 (3.5-5.1) meq/L Chloride 110 H (98-107) meq/L Carbon Dioxide 30.1 (21.0-32.0) meq/L Anion Gap 6 (5-15) meq/L BUN 11 (7-18) mg/dL Creatinine 0.97 (0.60-1.30) mg/dL Estimated GFR Greater than 89 (>89) mL/min Random Glucose 95 (74-106) mg/dL Calcium 8.3 L (8.5-10.1) mg/dL Magnesium 1.9 (1.5-2.5) mg/dL Total Bilirubin 0.4 (0.2-1.0) mg/dL AST 40 H (15-37) U/L ALT 45 (12-78) U/L Alkaline Phosphatase 76 (45-117) U/L Total Creatine Kinase 697 H (39-308) U/L CK-MB (CK-2) 9.4 H (0.5-3.6) ng/mL CK-MB (CK-2) % 1.3 (0.0-4.0) % Troponin I 0.03 (0.02-0.05) ng/mL B-Natriuretic Peptide (0-100) pg/mL Total Protein 7.4 (6.4-8.2) g/dL Albumin 3.9 (3.4-5.0) g/dL Lipase 78 (73-393) U/L 03/25/18 Range/Units 23:50 WBC (4.0-11.0) th/mm3 RBC (4.50-5.90) mil/mm3 Hgb (13.0-17.0) gm/dL Hct (39.0-51.0) % MCV (80.0-100.0) fL MCH (27.0-34.0) pg MCHC (32.0-36.0) % RDW (11.6-17.2) % Plt Count (150-450) th/mm3 MPV (7.0-11.0) fL Prelim Diff (Auto) Neut % (Auto) (16.0-70.0) % Lymph % (Auto) (9.0-44.0) % Borden % (Auto) (0.0-8.0) % Eos % (Auto) (0.0-4.0) % Baso % (Auto) (0.0-2.0) % Neut # (Auto) (1.8-7.7) th/mm3 Lymph # (Auto) (1.0-4.8) th/mm3 Borden # (Auto) (0.0-0.9) th/mm3 Eos # (Auto) (0.0-0.4) th/mm3 Baso # (Auto) (0.0-0.2) th/mm3 WBC Differential Diff Scan Differential Comment Platelet Estimate (Normal) Platelet Morphology (Normal) PT (9.8-11.6) sec INR Ratio APTT (24.3-30.1) sec D-Dimer Quant (PE/DVT) (0.00-0.50) mg/L FEU Sodium (136-145) meq/L Potassium (3.5-5.1) meq/L Chloride (98-107) meq/L Carbon Dioxide (21.0-32.0) meq/L Anion Gap (5-15) meq/L BUN (7-18) mg/dL Creatinine (0.60-1.30) mg/dL Estimated GFR (>89) mL/min Random Glucose (74-106) mg/dL Calcium (8.5-10.1) mg/dL Magnesium (1.5-2.5) mg/dL Total Bilirubin (0.2-1.0) mg/dL AST (15-37) U/L ALT (12-78) U/L Alkaline Phosphatase (45-117) U/L Total Creatine Kinase (39-308) U/L CK-MB (CK-2) (0.5-3.6) ng/mL CK-MB (CK-2) % (0.0-4.0) % Troponin I (0.02-0.05) ng/mL B-Natriuretic Peptide 41 (0-100) pg/mL Total Protein (6.4-8.2) g/dL Albumin (3.4-5.0) g/dL Lipase (73-393) U/L Imaging Data Radiologist's impression: Chest X-Ray 03/25/18 23:36 CONCLUSION: 1. Stable elevation of the right hemidiaphragm. 2. No acute cardiopulmonary process. Chest CTA 03/26/18 03:25 CONCLUSION: 1. Elevation of the right hemidiaphragm. 2. Dense atherosclerotic calcification of the coronary arteries. 3. No acute infiltrate or pulmonary embolus to explain current clinical symptoms ECG Data Attestation: I personally reviewed and interpreted this ECG as follows: Prior ECG tracings: available for review Interpretation: The patient had an EKG done on arrival. The patient's EKG shows atrial fibrillation heart rate of 89, QRS duration is 99 ms, QTC [address] segment elevation. The patient is noted to have occasional premature ventricular complexes. Discharge Plan Discharge Disposition Patient Disposition: 30 Still Patient Discharge Details Diagnosis: Chest pain, rule out acute myocardial infarction Physicians Team ED Provider: Zeynep Egan Primary Care Provider: Magdy Guerra Attending Provider: Marissa Stout ED Status: Admitted Observation Patient
[2018-03-26 02:08] LABS: Platelet Estimate Normal (Normal); Platelet Morphology Normal (Normal)
[2018-03-26] MEDS ORDERED: Acetaminophen 500 MG Tablet PO PRN (05:21)
--- NOTE | 2018-03-26 05:21 | CT ---
EXAM DATE: 03/26/2018 5:01 AM EDT AGE/SEX: 47 years / Male INDICATIONS: Shortness of breath. CLINICAL DATA: This is the patient's initial encounter. Patient reports that signs and symptoms have been present for 1 day and indicates a pain score of 3/10. MEDICAL/SURGICAL HISTORY: Cardiovascular disease. Hypertension. Chronic obstructive pulmonary dis ease. None. RADIATION DOSE: 10.89 CTDI (mGy) COMPARISON: No prior exams available for comparison. TECHNIQUE: Volumetric scanning was performed using a multi-row detector CT scanner during bolus infu eddie of 75 ml Omnipaque 350 (iohexol) nonionic water-soluble contrast as a single exam dose. The mohan a was post processed with a variety of visualization algorithms including full volume maximum intensi ty projection and sliding thin slab reformation. Using automated exposure control and adjustment of the mA and/or kV according to patient size, radiation dose was kept as low as reasonably achievable t o obtain optimal diagnostic quality images. DICOM format image data is available electronically for review and comparison. FINDINGS: Pulmonary Arteries: No filling defects are seen in the pulmonary arteries out to the subsegmental ve ssels. The left and right pulmonary arteries are normal in diameter. Lung: No infiltrates seen. Elevation of the right hemidiaphragm. Effusion: None. Mediastinum: No evidence of mediastinal or hilar adenopathy. Dense atherosclerotic calcification of the coronary arteries. Other: The axilla is unremarkable. CONCLUSION: 1. Elevation of the right hemidiaphragm. 2. Dense atherosclerotic calcification of the coronary arteries. 3. No acute infiltrate or pulmonary embolus to explain current clinical symptoms Electronically signed by: Neymar Wen MD 03/26/2018 5:20 AM EDT
[2018-03-26] MEDS ORDERED: Sod Chloride 0.9% Inj 1,000 ML IV.CONT SCH (05:30)
[2018-03-26 07:49] LABS: Troponin I 0.02 ng/mL (0.02-0.05)
[2018-03-26 08:02] LABS: CKMB Percent 1.3 % (0.0-4.0); Creatine Kinase MB 6.9 ng/mL (0.5-3.6)
[2018-03-26 09:31] LABS: Troponin I 0.03 ng/mL (0.02-0.05)
[2018-03-26 09:43] LABS: CKMB Percent 1.5 % (0.0-4.0)
--- NOTE | 2018-03-26 11:18 | P.HPCA ---
History of Present Illness Primary Care Physician: Magdy Guerra Chief Complaint: Chest pain History of Present Illness: This is a 47-year-old male with history of CAD with history of ulcerative stenting as well as atrial fibrillation that presents to ED to be evaluated for chest discomfort that has been present for 2 days intermittently. Last 7-8 minutes usually but the longest episode was yesterday lasting about 20 minutes. He at times been short of breath, nauseous, and diaphoretic. Upon reviewing records he had a cardiac catheterization March 17, [address] Martinez and there were no intervention. Denies recent illness. Denies fevers or chills. Patient smokes about 6 cigarettes a day for the past 3 months but prior that he smoked about 1 pack a series daily for 25 years. Denies alcohol or illicit drugs. There is family history of CAD. - Diagnosis (1) Chest pain (2) Hypertension (3) Hyperlipidemia (4) Tobacco abuse (5) H/O heart artery stent (6) CAD (coronary artery disease) (7) Atrial fibrillation Review of Systems General: Patient denies fevers, chills, and recent travel. HEENT: Patient denies headache, sore throat, difficulty swallowing. Cardiovascular: Has the chest discomfort as mentioned above. Denies sensation of heart beating rapidly or irregularly. No syncope. Episode of diaphoresis. Respiratory: Rarely short of breath. Denies or inspirational chest discomfort. Denies coughing wheezing or hemoptysis. GI: Intermittent nausea. Patient denies vomiting, diarrhea, abdominal pain, bloody stools. Musculoskeletal: Patient denies joint pain or edema. Denies calf pain or edema. Neurovascular: Patient denies numbness, tingling, weakness in extremities. Denies headache. Endocrine: Denies polyuria and polydipsia. Hematologic: Denies easy bruising. Skin: Denies rash or itching. PMFSH - History History Provided By: Patient - Medical History Medical History: Medical History (Last Reviewed 03/26/18 @ 00:52 by Zeynep Egan MD) COPD (chronic obstructive pulmonary disease) Myocardial infarction Afib CAD (coronary artery disease) HLD (hyperlipidemia) HTN (hypertension) - Surgical History Surgical History: Surgical History (Last Updated 03/25/18 @ 23:46 by Tiny Buchanan) History of cardiac cath Surgical procedure on lower extremity within past 6 months - Tobacco History Second Hand Smoke Exposure: No Tobacco Use In Past 30 Days: No Smoking Status: Former smoker Tobacco Type: Cigarettes - Alcohol History How Often Do You Have a Drink Containing Alcohol: Monthly or less - Substance Use History Substance History: No History of Abuse - Travel History Recent Travel in the [place] Within the Last 8 Weeks: No Recent Travel Out of the Country Within the Last 8 Weeks: No - Immunization History Tetanus Immunization: Unsure Hx Influenza Vaccine This Season: No Medications and Allergies Active Medications: Active Medications Acetaminophen (Tylenol) 500 mg PO Q4H PRN PRN Reason: HEADACHE Apixaban (Eliquis) 5 mg PO BID [facility] Atorvastatin Calcium (Lipitor) 80 mg PO HS [facility] Clopidogrel Bisulfate (Plavix) 75 mg PO DAILY [facility] Sodium Chloride (Ns Inj) 1,000 mls @ 100 mls/hr IV.CONT .Q10H [facility] Last Admin: 03/26/18 08:41 Dose: 100 mls/hr Metoprolol Tartrate (Lopressor) 100 mg PO BID [facility] Sodium Chloride (Ns Flush) 2 ml IV.FLUSH UNSCH PRN PRN Reason: FLUSH AFTER USING IV ACCESS Sodium Chloride (Ns Flush) 2 ml IV.FLUSH BID [facility] Last Admin: 03/26/18 08:42 Dose: 2 ml Sodium Chloride (Ns Flush) 2 ml IV.FLUSH PRN PRN PRN Reason: FLUSH AFTER USING IV ACCESS Allergies Allergy/AdvReac Type Severity Reaction Status Date / Time lisinopril Allergy Severe Anaphylaxis Verified 12/18/17 14:57 JUST FOR MEN Allergy Severe Shortness Uncoded 06/06/17 11:24 of Breath Home Medications Medication Instructions Recorded Confirmed Type albuterol sulfate [Ventolin HFA] 2 puff INHALATION Q4-6H PRN 03/14/18 03/26/18 History atorvastatin 80 mg PO HS 03/14/18 03/26/18 History clopidogrel [Plavix] 75 mg PO DAILY 03/14/18 03/26/18 History isosorbide mononitrate 120 mg PO BID 03/14/18 03/26/18 History Exam Vital signs: Vital Signs 03/25/18 20:18 03/25/18 23:44 03/25/18 23:52 Temperature 98.6 F Pulse Rate 99 H 82 Respiratory Rate 18 18 Blood Pressure 130/74 139/97 H Blood Pressure [Left Arm] 139/97 H Blood Pressure [Right Arm] 132/97 H Pulse Oximetry 93 L 94 L 94 L 03/26/18 01:31 03/26/18 03:35 03/26/18 04:39 Temperature Pulse Rate 82 82 69 Respiratory Rate 17 18 17 Blood Pressure 100/75 118/81 Blood Pressure [Left Arm] Blood Pressure [Right Arm] Pulse Oximetry 92 L 92 L 03/26/18 06:12 03/26/18 07:38 03/26/18 08:54 Temperature Pulse Rate 82 88 88 Respiratory Rate 17 19 17 Blood Pressure 122/89 118/89 124/80 Blood Pressure [Left Arm] Blood Pressure [Right Arm] Pulse Oximetry 97 97 97 Intake & Output 03/25/18 03/26/18 03/26/18 18:59 06:59 18:59 Weight 81.647 kg Narrative: GENERAL: This is a well-nourished, well-developed patient, in no apparent distress. Patient speaks in clear complete sentences. Patient is pleasant. HEENT: Head is atraumatic and normocephalic. Neck is supple without lymphadenopathy and trachea is midline. No JVD or carotid bruits. CARDIOVASCULAR: Regular rate and rhythm without murmurs, gallops, or rubs. RESPIRATORY: Clear to auscultation. Breath sounds equal bilaterally. No wheezes , rales, or rhonchi. Chest wall is tender creating the discomfort that he is complaining of. No use of accessory muscles. GASTROINTESTINAL: Abdomen is nontender, nondistended. Abdomen soft. No obvious pulsatile mass or bruit. No CVA tenderness. Strong femoral pulses bilaterally. Normal bowel sounds in all quadrants. MUSCULOSKELETAL: Patient is moving upper and lower extremities freely. No calf tenderness or edema, no Homans sign. Strong pulses in upper and lower extremities. NEUROLOGICAL: Patient is alert and oriented. Cranial nerves 2-12 are grossly intact. No focal deficits and speech is clear. SKIN: No rash and turgor is normal. Results 03/25/18 23:50 03/25/18 23:50 Cardiac Enzymes 03/25/18 03/25/18 03/26/18 Range/Units 23:50 23:50 05:40 AST 40 H (15-37) U/L CK-MB (CK-2) 9.4 H 6.9 H (0.5-3.6) ng/mL Troponin I 0.03 0.02 (0.02-0.05) ng/mL B-Natriuretic Peptide 41 (0-100) pg/mL 03/26/18 Range/Units 08:30 AST (15-37) U/L CK-MB (CK-2) 7.0 H (0.5-3.6) ng/mL Troponin I 0.03 (0.02-0.05) ng/mL B-Natriuretic Peptide (0-100) pg/mL Coagulation 03/25/18 03/25/18 Range/Units 23:50 23:50 PT 10.0 (9.8-11.6) sec APTT 25.3 (24.3-30.1) sec B-Natriuretic Peptide 41 (0-100) pg/mL CBC 03/25/18 Range/Units 23:50 WBC 5.9 (4.0-11.0) th/mm3 RBC 5.07 (4.50-5.90) mil/mm3 Hgb 15.3 (13.0-17.0) gm/dL Hct 45.4 (39.0-51.0) % Plt Count 164 (150-450) th/mm3 Neut # (Auto) 1.3 L (1.8-7.7) th/mm3 Lymph # (Auto) 3.8 (1.0-4.8) th/mm3 Major # (Auto) 0.7 (0.0-0.9) th/mm3 Eos # (Auto) 0.0 (0.0-0.4) th/mm3 Baso # (Auto) 0.1 (0.0-0.2) th/mm3 Comprehensive Metabolic Panel 03/25/18 Range/Units 23:50 Sodium 146 H (136-145) meq/L Potassium 3.6 (3.5-5.1) meq/L Chloride 110 H (98-107) meq/L Carbon Dioxide 30.1 (21.0-32.0) meq/L BUN 11 (7-18) mg/dL Creatinine 0.97 (0.60-1.30) mg/dL Calcium 8.3 L (8.5-10.1) mg/dL AST 40 H (15-37) U/L ALT 45 (12-78) U/L Alkaline Phosphatase 76 (45-117) U/L Total Protein 7.4 (6.4-8.2) g/dL Albumin 3.9 (3.4-5.0) g/dL Intake and Output 03/25/18 03/26/18 03/26/18 22:59 06:59 14:59 Other: Weight 81.647 kg EKG interpretations - Dysrhythmias Supraventricular dysrhythmia: atrial fibrillation (EKGs have atrial fibrillation.) Caprini VTE Risk Assessment Caprini VTE Risk Assessment: Moderate/High Risk (score >= 2) Caprini Risk Assessment Model: Point Value = 1 Point Value = 2 Point Value = 3 Point Value = 5 Age 41-60 Minor surgery BMI > 25 kg/m2 Swollen legs Varicose veins or History of unexplained or recurrent spontaneous Oral contraceptives or hormone replacement Sepsis (< 1 month) Serious lung disease, including pneumonia (< 1 month) Abnormal pulmonary function Acute myocardial infarction Congestive heart failure (< 1 month) History of inflammatory bowel disease Medical patient at bed rest Age 61-74 Arthroscopic surgery Major open surgery (> 45 min) Laparoscopic surgery (> 45 min) Malignancy Confined to bed (> 72 hours) Immobilizing plaster cast Central venous access Age >= 75 History of VTE Family history of VTE Factor V Leiden Prothrombin [id number] Lupus anticoagulant Anticardiolipin antibodies Elevated serum homocysteine Heparin-induced thrombocytopenia Other congenital or acquired thrombophilia Stroke (< 1 month) Elective arthroplasty Hip, pelvis, or leg fracture Acute spinal cord injury (< 1 month) Prophylaxis Regimen: Total Risk Factor Score Risk Level Prophylaxis Regimen 0-1 Low Early ambulation 2 Moderate Order ONE of the following: *Sequential Compression Device (SCD) *Heparin 5000 units SQ BID 3-4 Higher Order ONE of the following medications: *Heparin 5000 units SQ TID *Enoxaparin/Lovenox 40 mg SQ daily (WT < 150 kg, CrCl > 30 mL/min) *Enoxaparin/Lovenox 30 mg SQ daily (WT < 150 kg, CrCl > 10-29 mL/min) *Enoxaparin/Lovenox 30 mg SQ BID (WT < 150 kg, CrCl > 30 mL/min) AND/OR *Sequential Compression Device (SCD) 5 or more Highest Order ONE of the following medications: *Heparin 5000 units SQ TID (Preferred with Epidurals) *Enoxaparin/Lovenox 40 mg SQ daily (WT < 150 kg, CrCl > 30 mL/min) *Enoxaparin/Lovenox 30 mg SQ daily (WT < 150 kg, CrCl > 10-29 mL/min) *Enoxaparin/Lovenox 30 mg SQ BID (WT < 150 kg, CrCl > 30 mL/min) AND *Sequential Compression Device (SCD) Assessment and Plan - Assessment (1) Chest pain Code(s): R07.9 - Chest pain, unspecified Status: Acute (2) Hypertension Code(s): I10 - Essential (primary) hypertension Status: Acute (3) Hyperlipidemia Code(s): E78.5 - Hyperlipidemia, unspecified Status: Acute (4) Tobacco abuse Code(s): Z72.0 - Tobacco use Status: Acute (5) H/O heart artery stent Code(s): Z95.5 - Presence of coronary angioplasty implant and graft Status: Acute (6) CAD (coronary artery disease) Code(s): I25.10 - Atherosclerotic heart disease of [place] coronary artery without angina pectoris Status: Acute (7) Atrial fibrillation Code(s): I48.91 - Unspecified atrial fibrillation Status: Chronic - Plan * Chest pain: Patient was seen by Dr. Sepulveda of cardiology in the chest pain center and is found his discomfort to be atypical in nature. Seems to be musculoskeletal in nature. Patient will be discharged home at this time after ruling out with serial cardiac enzymes and EKGs as well as having a cardiac catheterization March 17 but did not need intervention. He will be instructed to follow-up with PCP, sheet catcher, and return to ED for interval issues. * CAD with history of stent: Patient to continue his medications. He is to follow-up with his sheet catcher. * Hypertension: Continue medication. * Hyperlipidemia: Continue medication. * Tobacco abuse: Patient counseled on the importance of smoking cessation. * COPD: Patient resume his medication. He needs to quit smoking. Patient is stable at this time. He is agreeable to this plan. (7) Atrial fibrillation Qualifiers:
[2018-03-26 11:35] VITALS: BP 140/98; PULSE 94; RESP 16; O2SAT 98
[2018-03-26] MEDS ORDERED: Metoprolol Tartrate 100 MG Tablet PO SCH (12:30)
--- NOTE | 2018-03-26 16:09 | ECG ---
Date Performed: 03/26/2018 Time Performed: 06:09:54 PTAGE: 47 years EKG: ATRIAL FIBRILLATION POSSIBLE ANTERIOR MYOCARDIAL INFARCTION ABNORMAL ECG PREVIOUS TRACING : 03/15/2018 12.07 Since previous tracing, no significant change noted DOCTOR: Jet Sepulveda Interpretating Date/Time 03/26/2018 16:08:56
--- NOTE | 2018-03-26 16:26 | ECG ---
Date Performed: 03/25/2018 Time Performed: 20:33:16 PTAGE: 47 years EKG: ATRIAL FIBRILLATION WITH ABERRANT CONDUCTION OR VENTRICULAR PREMATURE COMPLEXES NONSPECIFIC T-WAVE ABNORMALITY ABNORMAL ECG Since PREVIOUS TRACING , no significant change noted DOCTOR: Jet Sepulveda Interpretating Date/Time 03/26/2018 16:26:15
--- NOTE | 2018-03-26 18:30 | ECG ---
Date Performed: 03/26/2018 Time Performed: 08:35:45 PTAGE: 47 years EKG: ATRIAL FIBRILLATION LOW QRS VOLTAGE IN EXTREMITY LEADS POSSIBLE ANTERIOR MYOCARDIAL INFARCT ION INFERIOR MYOCARDIAL INFARCTION ABNORMAL ECG PREVIOUS TRACING : 03/26/2018 06.09 Since the previous tracing, no significant change noted DOCTOR: Luma Maloney Interpretating Date/Time 03/26/2018 18:29:30
== END 2018-03-26 16:02 | disposition home or self-care (01) ==
LOC: NEPE 19:58 → NEDA 19:58
PROVIDERS: ADMIT Internal Medicine Interventional Cardiology; ATTEND Internal Medicine Interventional Cardiology

== ENCOUNTER 2018-08-18 12:50 | Observation (INO) ==
[2018-08-18] MEDS ORDERED: MethylPREDNISolone Sod Succinate Inj 125 MG/2 ML Vial IV.PUSH ONE (13:09)
--- NOTE | 2018-08-18 13:16 | ED ---
HPI General Chief Complaint: Shortness of Breath/Dyspnea Stated Complaint: difficulty breathing complaint Time Seen by Provider: 08/18/18 13:05 Source: patient Mode of arrival: ambulatory Limitations: no limitations History of Present Illness The patient is a 48-year-old -[place] male who presents to the emergency department for shortness of breath. The patient states he developed shortness of breath 3 days ago after he had a runny nose and cough. The patient states he initially had a runny nose, then developed a productive cough producing green sputum. The patient now notes increasing shortness of breath with wheezing. The patient does have a history of COPD and tobacco use, quit smoking 1 week ago. The patient's symptoms are worse with exertion and coughing , he denies any associated chest pain, diaphoresis, nausea, vomiting, diarrhea, or abdominal pain. The patient denies any history of pulmonary embolism or DVT. He denies any recent travel, surgeries, or swelling of the lower extremities. The patient did use his inhaler prior to arrival with minimal relief of his symptoms. The patient's primary physician is Dr. Guerra. The patient denies any current fever, chills, or sweats. MD Complaint: Reports shortness of breath and cough Onset (ago): day(s) Context: Reports recent illness Severity: moderate Consistency/Duration: constant and progressively worsening Relieving factors: nothing Exacerbating factors: exertion and coughing Known history of: Reports COPD and recurrent pneumonia Associated symptoms: Reports cough, wheezing and sputum production Treatment prior to arrival: Reports bronchodilator Related Data Home oxygen amount: none Home Medications Medication Instructions Recorded Confirmed albuterol sulfate [Ventolin HFA] 2 puff INHALATION Q4-6H PRN 03/14/18 08/18/18 atorvastatin 80 mg PO HS 03/14/18 08/18/18 clopidogrel [Plavix] 75 mg PO DAILY 03/14/18 08/18/18 isosorbide mononitrate 120 mg PO BID 03/14/18 08/18/18 albuterol sulfate 2.5 mg INHALATION Q4-6H PRN 08/18/18 08/18/18 apixaban [Eliquis] 5 mg PO HS 08/18/18 08/18/18 aspirin [Aspir-81] 81 mg PO DAILY 08/18/18 08/18/18 Previous Rx's Medication Instructions Recorded metoprolol tartrate 100 mg PO BID #60 tab 07/15/18 Allergies Allergy/AdvReac Type Severity Reaction Status Date / Time lisinopril Allergy Severe Anaphylaxis Verified 08/18/18 13:04 JUST FOR MEN Allergy Severe Shortness Uncoded 08/18/18 13:04 of Breath Review of Systems ROS: all other systems reviewed are negative [facility] Social History Social History Substance History: No History of Abuse Second Hand Smoke Exposure: Yes Smoking Status: Former smoker Tobacco Type: Cigarettes How Often Do You Have a Drink Containing Alcohol: Never Recent Travel in [facility] within the Last 8 Weeks: No Recent Out of Country Travel within the Last 8 Weeks: No Exam Narrative Exam Narrative: GENERAL: Awake, alert, pleasant 48-year-old male who appears his stated age and is in mild respiratory distress. SKIN: Focused skin assessment warm/dry. HEAD: Atraumatic. Normocephalic. EYES: No injection or drainage. ENT: No nasal bleeding or discharge. Mucous membranes pink and moist. NECK: Trachea midline. No JVD. CARDIOVASCULAR: Regular, tachycardic with a heart rate of 110. RESPIRATORY: Tachypnea with a respiratory rate of 24, supraclavicular retractions noted. Diffuse wheezing with prolonged expiratory phase noted. GASTROINTESTINAL: Abdomen soft, non-tender, nondistended. Hepatic and splenic margins not palpable. MUSCULOSKELETAL: No obvious deformities. No clubbing. No cyanosis. Trace edema lower extremities noted. NEUROLOGICAL: Awake and alert. No obvious cranial nerve deficits. Motor grossly within normal limits. Normal speech. PSYCHIATRIC: Appropriate mood and affect; insight and judgment normal. Course Initial Documented Vital Signs Temperature 97.7 F 08/18/18 12:56 Pulse Rate 91 H 08/18/18 12:56 Respiratory Rate 24 08/18/18 12:56 Blood Pressure 163/102 H 08/18/18 12:56 Pulse Oximetry 93 L 08/18/18 12:56 Last Documented Vital Signs Temperature 97.7 F 08/18/18 12:56 Pulse Rate 102 H 08/18/18 13:21 Respiratory Rate 22 08/18/18 13:21 Blood Pressure 144/87 H 08/18/18 13:05 Pulse Oximetry 96 08/18/18 13:21 Medical Decision Making MDM Narrative Medical decision making narrative: IV was established, labs are drawn and sent, and the patient was placed on cardiac telemetry monitoring and continuous pulse oximetry monitoring. EKG was ordered and interpreted. Chest x-ray was obtained. The patient received Solu-Medrol 125 mg intravenously and duo nebs x2. Influenza screen was sent to lab. Chest x-ray reveals no acute findings. Laboratory evaluation is essentially unremarkable. Influenza screen is negative. The patient was reevaluated at 2:35 PM, he still has mild tachypnea, retractions have improved. Reevaluation of lung sounds reveals diffuse wheezing with coarse breath sounds. Patient appears to have acute exacerbation of COPD, continues to be symptomatic, therefore, will be a 23-hour observation for IV steroids and serial duo nebs. The patient is comfortable with this plan of care and disposition. The patient was being seen by Dr. Guerra, however, he has a new physician and does not know the current name. It appears the patient has [facility], therefore, the on-call [facility] physician was paged for 23-hour observation. The on-call Center states the patient does not have [facility], therefore, the on-call medical service was paged for admission. Medical Screen Exam Complete: Yes Emergency Medical Condition: Yes Differential Diagnosis Differential Diagnosis: Differential diagnosis includes pneumonia, bronchitis, COPD exacerbation, pulmonary embolism, pleural effusion, congestive heart failure, cardiomyopathy, ACS. Lab Data Result diagrams: 08/18/18 13:33 08/18/18 13:33 Lab Results 08/18/18 08/18/18 08/18/18 Range/Units 13:33 13:33 13:33 WBC 3.6 L (4.0-11.0) th/mm3 RBC 4.45 L (4.50-5.90) mil/mm3 Hgb 14.4 (13.0-17.0) gm/dL Hct 42.5 (39.0-51.0) % MCV 95.4 (80.0-100.0) fL MCH 32.4 (27.0-34.0) pg MCHC 34.0 (32.0-36.0) % RDW 14.4 (11.6-17.2) % Plt Count 189 (150-450) th/mm3 MPV 6.6 L (7.0-11.0) fL Neut % (Auto) 41.3 (16.0-70.0) % Lymph % (Auto) 41.5 (9.0-44.0) % [place] % (Auto) 15.7 H (0.0-8.0) % Eos % (Auto) 0.6 (0.0-4.0) % Baso % (Auto) 0.9 (0.0-2.0) % Neut # (Auto) 1.5 L (1.8-7.7) th/mm3 Lymph # (Auto) 1.5 (1.0-4.8) th/mm3 [place] # (Auto) 0.6 (0.0-0.9) th/mm3 Eos # (Auto) 0.0 (0.0-0.4) th/mm3 Baso # (Auto) 0.0 (0.0-0.2) th/mm3 WBC Differential . Differential Comment Auto diff final Sodium 137 (136-145) meq/L Potassium 3.6 (3.5-5.1) meq/L Chloride 104 (98-107) meq/L Carbon Dioxide 27.4 (21.0-32.0) meq/L Anion Gap 6 (5-15) meq/L BUN 10 (7-18) mg/dL Creatinine 0.91 (0.60-1.30) mg/dL Estimated GFR Greater than 89 (>89) mL/min Random Glucose 136 H (74-106) mg/dL Lactic Acid 1.8 (0.4-2.0) mmol/L Calcium 8.9 (8.5-10.1) mg/dL Magnesium 1.7 (1.5-2.5) mg/dL Total Bilirubin 0.8 (0.2-1.0) mg/dL AST 28 (15-37) U/L ALT 39 (12-78) U/L Alkaline Phosphatase 93 (45-117) U/L Troponin I 0.02 (0.02-0.05) ng/mL B-Natriuretic Peptide (0-100) pg/mL Total Protein 7.5 (6.4-8.2) g/dL Albumin 3.7 (3.4-5.0) g/dL 08/18/18 Range/Units 13:33 WBC (4.0-11.0) th/mm3 RBC (4.50-5.90) mil/mm3 Hgb (13.0-17.0) gm/dL Hct (39.0-51.0) % MCV (80.0-100.0) fL MCH (27.0-34.0) pg MCHC (32.0-36.0) % RDW (11.6-17.2) % Plt Count (150-450) th/mm3 MPV (7.0-11.0) fL Neut % (Auto) (16.0-70.0) % Lymph % (Auto) (9.0-44.0) % [place] % (Auto) (0.0-8.0) % Eos % (Auto) (0.0-4.0) % Baso % (Auto) (0.0-2.0) % Neut # (Auto) (1.8-7.7) th/mm3 Lymph # (Auto) (1.0-4.8) th/mm3 [place] # (Auto) (0.0-0.9) th/mm3 Eos # (Auto) (0.0-0.4) th/mm3 Baso # (Auto) (0.0-0.2) th/mm3 WBC Differential Differential Comment Sodium (136-145) meq/L Potassium (3.5-5.1) meq/L Chloride (98-107) meq/L Carbon Dioxide (21.0-32.0) meq/L Anion Gap (5-15) meq/L BUN (7-18) mg/dL Creatinine (0.60-1.30) mg/dL Estimated GFR (>89) mL/min Random Glucose (74-106) mg/dL Lactic Acid (0.4-2.0) mmol/L Calcium (8.5-10.1) mg/dL Magnesium (1.5-2.5) mg/dL Total Bilirubin (0.2-1.0) mg/dL AST (15-37) U/L ALT (12-78) U/L Alkaline Phosphatase (45-117) U/L Troponin I (0.02-0.05) ng/mL B-Natriuretic Peptide 106 H (0-100) pg/mL Total Protein (6.4-8.2) g/dL Albumin (3.4-5.0) g/dL Imaging Data Radiologist's impression: Chest X-Ray 08/18/18 13:09 CONCLUSION: 1. No acute abnormality or significant interval change. ECG Data EKG Prior to Arrival: No Attestation: I personally reviewed and interpreted this ECG as follows: Interpretation: EKG reveals atrial fibrillation in the 90s with unifocal PVC. Q waves noted in lead III and aVF. Discharge Plan Discharge Disposition Patient Disposition: ED Admit(ED Internal Use Only) Discharge Condition Condition: Stable Discharge Details Diagnosis: Acute exacerbation of chronic obstructive pulmonary disease (COPD), Atrial fibrillation with RVR Physicians Team ED Provider: Raudel Espinal Primary Care Provider: UNKNOWN, Rxs /Orders / Referrals /Forms Prescriptions: No Action clopidogrel [Plavix] 75 mg Tablet 75 mg PO DAILY RF: 0 atorvastatin 80 mg Tablet 80 mg PO HS RF: 0 isosorbide mononitrate 120 mg Tablet Extended Release 24 Hr 120 mg PO BID RF: 0 albuterol sulfate [Ventolin HFA] 90 mcg/actuation Hfa Aerosol Inhaler 2 puff INHALATION Q4-6H PRN (Reason: Shortness Of Breath) RF: 0 metoprolol tartrate 100 mg Tablet 100 mg PO BID Qty: 60 RF: 0 albuterol sulfate 1.25 mg/3 mL Solution For Nebulization 2.5 mg INHALATION Q4-6H PRN (Reason: Shortness Of Breath Or Wheezing) RF: 0 aspirin [Aspir-81] 81 mg Tablet,Delayed Release (Dr/Ec) 81 mg PO DAILY RF: 0 apixaban [Eliquis] 5 mg tablet 5 mg PO HS RF: 0 Status ED Status: Pending Admission
[2018-08-18 13:55] LABS: Baso % (Auto) 0.9 % (0.0-2.0); Eos % (Auto) 0.6 % (0.0-4.0); Hematocrit 42.5 % (39.0-51.0); Hemoglobin 14.4 gm/dL (13.0-17.0); Lymph # (Auto) 1.5 th/mm3 (1.0-4.8); Lymph % (Auto) 41.5 % (9.0-44.0); Mean Corpuscular Hemoglobin 32.4 pg (27.0-34.0); Mean Corpuscular Volume 95.4 fL (80.0-100.0); Mean Platelet Volume 6.6 fL (7.0-11.0); Mono # (Auto) 0.6 th/mm3 (0.0-0.9); Mono % (Auto) 15.7 % (0.0-8.0); Neut # (Auto) 1.5 th/mm3 (1.8-7.7); Neut % (Auto) 41.3 % (16.0-70.0); Platelet Count 189 th/mm3 (150-450); Red Blood Count 4.45 mil/mm3 (4.50-5.90); Red Cell Distribution Width 14.4 % (11.6-17.2); White Blood Count 3.6 th/mm3 (4.0-11.0)
--- NOTE | 2018-08-18 13:56 | XR ---
EXAM DATE: 08/18/2018 1:53 PM EST AGE/SEX: 48 years / Male INDICATIONS: Cough and short of breath CLINICAL DATA: This is the patient's initial encounter. Patient reports that signs and symptoms have been present for 4 - 6 days and indicates a pain score of 5/10. MEDICAL/SURGICAL HISTORY: Cardiovascular disease. Coronary artery stent. COMPARISON: [facility], CHEST 1V SINGLE AP, 03/25/2018. . FINDINGS: Stable mild elevation the right hemidiaphragm. No significant new focal pleural or parenchymal opacit ies. The cardiomediastinal contours are unremarkable. Osseous structures are intact. CONCLUSION: 1. No acute abnormality or significant interval change. Electronically signed by: Scott Lopez MD Board Certified Radiologist 08/18/2018 1:54 PM ES T
[2018-08-18 14:14] LABS: Albumin 3.7 g/dL (3.4-5.0); Anion Gap 6 meq/L (5-15); Aspartate Aminotransferase 28 U/L (15-37); Blood Urea Nitrogen 10 mg/dL (7-18); Calcium 8.9 mg/dL (8.5-10.1); Carbon Dioxide 27.4 meq/L (21.0-32.0); Chloride 104 meq/L (98-107); Glomerular Filtration Rate Greater Than 89 mL/min (>89); Glucose,Random 136 mg/dL (74-106); Magnesium 1.7 mg/dL (1.5-2.5); Potassium 3.6 meq/L (3.5-5.1); Sodium 137 meq/L (136-145)
[2018-08-18 14:15] LABS: Alanine Aminotransferase 39 U/L (12-78)
[2018-08-18 14:18] LABS: Alkaline Phosphatase 93 U/L (45-117); Total Protein 7.5 g/dL (6.4-8.2); Troponin I 0.02 ng/mL (0.02-0.05)
[2018-08-18] MEDS ORDERED: Levofloxacin 500 mg Premix Inj 500 MG/100 ML PIGGYBACK IV.SIG ONE (14:42)
--- NOTE | 2018-08-18 15:09 | P.HPFP ---
History of Present Illness Primary Care Physician: UNKNOWN Chief Complaint: Shortness of breath History of Present Illness: 48-year-old male with history of CAD, COPD, hyperlipidemia, hypertension and history of myocardial infarction presenting to the emergency department for increased shortness of breath. Patient states that last he started having a runny nose, chest congestion, cough, and worsening SOB. Usually he can walk about a block and walk around the house but the last couple of days he has been unable to do so. Patient has as a nebulizer at home and an albuterol inhaler that he has been using every morning and night. Patient has also been using Mucinex, brought up cough but not relieve. No fevers, chest pain, no headaches. Pt complains of cough, bringing green sputum up. Wheezing. No vomiting. This morning got tired of breathing hard which made him came in, he also complains of inability to sleep the past two nights. PMH: COPD, Hx of LA, Afib, HTN, pre-diabetes, elevated cholesterol. 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 Denies drug use. Vaccines: did not get flu shot. PCP: does not remember name - Diagnosis (1) Acute exacerbation of chronic obstructive pulmonary disease (COPD) (2) Cough (3) Atrial fibrillation (4) Hypertension (5) Tobacco abuse (6) Hx of CABG (7) Hyperlipidemia (8) Nutrition, metabolism, and development symptoms Review of Systems Constitutional: Reports headache(s), Reports malaise, Reports weakness, Denies chills, Denies fever(s) Cardiovascular: Reports shortness of breath, Reports shortness of breath with activity, Reports shortness of breath when lying down, Denies chest pain Respiratory: Reports change in phlegm color, Reports chest congestion, Reports cough, Reports pain with cough, Reports wheezing, Denies coughing up blood, Denies excessive phlegm production Gastrointestinal: Denies abdominal pain, Denies vomiting, Denies vomiting blood PMFSH - History History Provided By: Patient - Medical History Medical History: Medical History (Last Reviewed 08/18/18 @ 20:44 by Lyudmila Sands MD, R1 ) Afib CAD (coronary artery disease) COPD (chronic obstructive pulmonary disease) HLD (hyperlipidemia) HTN (hypertension) Myocardial infarction - Surgical History Surgical History: Surgical History (Last Reviewed 08/18/18 @ 20:44 by Lyudmila Sands MD, R1) History of cardiac cath Surgical procedure on lower extremity within past 6 months - Social History I have reviewed the patient's Social History: Yes - Tobacco History Second Hand Smoke Exposure: Yes Tobacco Use In Past 30 Days: Yes Smoking Status: Former smoker Tobacco Type: Cigarettes - Alcohol History How Often Do You Have a Drink Containing Alcohol: Never - Substance Use History Substance History: No History of Abuse - Travel History Recent Travel in the [place] Within the Last 8 Weeks: No Recent Travel Out of the Country Within the Last 8 Weeks: No - Immunization History Tetanus Immunization: Unsure Medications and Allergies Active Medications: Active Medications Levofloxacin/Dextrose (Levaquin 500 Mg Premix Inj) 500 mg in 100 mls @ 100 mls/ hr IV.SIG ONCE ONE Stop: 08/18/18 15:41 Last Admin: 08/18/18 14:57 Dose: 100 mls/hr Allergies Allergy/AdvReac Type Severity Reaction Status Date / Time lisinopril Allergy Severe Anaphylaxis Verified 08/18/18 13:04 JUST FOR MEN Allergy Severe Shortness Uncoded 08/18/18 13:04 of Breath Home Medications Medication Instructions Recorded Confirmed Type albuterol sulfate [Ventolin HFA] 2 puff INHALATION Q4-6H PRN 03/14/18 08/18/18 History atorvastatin 80 mg PO HS 03/14/18 08/18/18 History clopidogrel [Plavix] 75 mg PO DAILY 03/14/18 08/18/18 History isosorbide mononitrate 120 mg PO BID 03/14/18 08/18/18 History albuterol sulfate 2.5 mg INHALATION Q4-6H PRN 08/18/18 08/18/18 History apixaban [Eliquis] 5 mg PO HS 08/18/18 08/18/18 History aspirin [Aspir-81] 81 mg PO DAILY 08/18/18 08/18/18 History Exam Vital signs: Vital Signs 08/18/18 12:56 08/18/18 13:05 08/18/18 13:21 Temperature 97.7 F Pulse Rate 91 H 86 102 H Respiratory Rate 24 24 22 Blood Pressure 163/102 H 144/87 H Pulse Oximetry 93 L 96 96 08/18/18 14:58 Temperature Pulse Rate 101 H Respiratory Rate 22 Blood Pressure 180/103 H Pulse Oximetry 96 Intake & Output 08/17/18 08/18/18 08/18/18 18:59 06:59 18:59 Weight 108.862 kg Narrative: Patient is a 48-year-old AA male Constitutional: Coughing, in mild respiratory distress, sitting straight up in bed Psychiatric: good judgement, normal mood and affect and active and alert. Head: normocephalic and atraumatic. Lungs: increased respiratory effort, mild dyspnea. wheezing and rhonchi in all lung mcl[place]. Good air movement. Cardiovascular: normal S1 and S2; no murmurs, rubs, or gallops; with regular rate and rhythm. Abdomen: + BS. No tenderness, guarding, or masses. Soft and non-distended. Musculoskeletal: normal movement of all extremities. No cyanosis or edema. Neurologic: Cranial Nerves: grossly intact. Skin: no rash, lesions, ulcer, or jaundice. Results - Labs Result diagrams: 08/18/18 13:33 08/18/18 13:33 Abnormal lab results 08/18/18 08/18/18 08/18/18 Range/Units 13:33 13:33 13:33 WBC 3.6 L (4.0-11.0) th/mm3 RBC 4.45 L (4.50-5.90) mil/mm3 MPV 6.6 L (7.0-11.0) fL [place] % (Auto) 15.7 H (0.0-8.0) % Neut # (Auto) 1.5 L (1.8-7.7) th/mm3 Random Glucose 136 H (74-106) mg/dL B-Natriuretic Peptide 106 H (0-100) pg/mL Short CBC 08/18/18 Range/Units 13:33 WBC 3.6 L (4.0-11.0) th/mm3 Hgb 14.4 (13.0-17.0) gm/dL Hct 42.5 (39.0-51.0) % Plt Count 189 (150-450) th/mm3 BMP 08/18/18 13:33 Sodium 137 Potassium 3.6 Chloride 104 Carbon Dioxide 27.4 BUN 10 Creatinine 0.91 Calcium 8.9 Cardiac Enzymes 08/18/18 Range/Units 13:33 Troponin I 0.02 (0.02-0.05) ng/mL Liver Function 08/18/18 Range/Units 13:33 Total Bilirubin 0.8 (0.2-1.0) mg/dL AST 28 (15-37) U/L ALT 39 (12-78) U/L Alkaline Phosphatase 93 (45-117) U/L Albumin 3.7 (3.4-5.0) g/dL - Imaging Impressions Chest X-Ray 08/18/18 13:09 CONCLUSION: 1. No acute abnormality or significant interval change. Caprini VTE Risk Assessment Caprini VTE Risk Assessment: No/Low Risk (score <= 1) Caprini Risk Assessment Model: Point Value = 1 Point Value = 2 Point Value = 3 Point Value = 5 Age 41-60 Minor surgery BMI > 25 kg/m2 Swollen legs Varicose veins or History of unexplained or recurrent spontaneous Oral contraceptives or hormone replacement Sepsis (< 1 month) Serious lung disease, including pneumonia (< 1 month) Abnormal pulmonary function Acute myocardial infarction Congestive heart failure (< 1 month) History of inflammatory bowel disease Medical patient at bed rest Age 61-74 Arthroscopic surgery Major open surgery (> 45 min) Laparoscopic surgery (> 45 min) Malignancy Confined to bed (> 72 hours) Immobilizing plaster cast Central venous access Age >= 75 History of VTE Family history of VTE Factor V Leiden Prothrombin [id number] Lupus anticoagulant Anticardiolipin antibodies Elevated serum homocysteine Heparin-induced thrombocytopenia Other congenital or acquired thrombophilia Stroke (< 1 month) Elective arthroplasty Hip, pelvis, or leg fracture Acute spinal cord injury (< 1 month) Prophylaxis Regimen: Total Risk Factor Score Risk Level Prophylaxis Regimen 0-1 Low Early ambulation 2 Moderate Order ONE of the following: *Sequential Compression Device (SCD) *Heparin 5000 units SQ BID 3-4 Higher Order ONE of the following medications: *Heparin 5000 units SQ TID *Enoxaparin/Lovenox 40 mg SQ daily (WT < 150 kg, CrCl > 30 mL/min) *Enoxaparin/Lovenox 30 mg SQ daily (WT < 150 kg, CrCl > 10-29 mL/min) *Enoxaparin/Lovenox 30 mg SQ BID (WT < 150 kg, CrCl > 30 mL/min) AND/OR *Sequential Compression Device (SCD) 5 or more Highest Order ONE of the following medications: *Heparin 5000 units SQ TID (Preferred with Epidurals) *Enoxaparin/Lovenox 40 mg SQ daily (WT < 150 kg, CrCl > 30 mL/min) *Enoxaparin/Lovenox 30 mg SQ daily (WT < 150 kg, CrCl > 10-29 mL/min) *Enoxaparin/Lovenox 30 mg SQ BID (WT < 150 kg, CrCl > 30 mL/min) AND *Sequential Compression Device (SCD) Assessment and Plan - Assessment (1) Acute exacerbation of chronic obstructive pulmonary disease (COPD) Code(s): J44.1 - Chronic obstructive pulmonary disease with (acute) exacerbation Status: Acute (2) Cough Code(s): R05 - Cough Status: Acute (3) Atrial fibrillation Code(s): I48.91 - Unspecified atrial fibrillation Status: Chronic (4) Hypertension Code(s): I10 - Essential (primary) hypertension Status: Chronic (5) Tobacco abuse Code(s): Z72.0 - Tobacco use Status: Chronic (6) Hx of CABG Code(s): Z95.1 - Presence of aortocoronary bypass graft Status: Chronic (7) Hyperlipidemia Code(s): E78.5 - Hyperlipidemia, unspecified Status: Chronic (8) Nutrition, metabolism, and development symptoms Code(s): R63.8 - Other symptoms and signs concerning food and fluid intake Status: Acute - Assessment and Plan 48-year-old male presented with severe exacerbation of COPD. Patient received breathing treatments antibiotics and IV steroids on ED without resolution of breathing symptoms. Patient will be admitted for observation and management Plan: COPD exacerbation Received IV steroids in ED and Levaquin 500mg IV Continue Levaquin 500 mg IV q24 Reevaluate pt for more IV steroids vs PO in the morning Continue breathing treatments q4hrs Albuterol q1hr PRN for shortness of breath Robitussin liquid w/ codeine for cough Atrial fibrillation Continue home Metoprolol 100mg po BID Hx of CABG Continue home aspirin 81mg po daily Continue Eliquis 5mg po hs Continue Plavix 75mg PO daily Continue isosorbide mononitrate 120mf ER po q day Tobacco abuse Nicotine patches Hyperlipemia Continue atorvastatin 80mg PO hs FEN: - PO hydration - Monitor replace electrolytes as needed - Cardiac diet PPX: - Bilateral lower extremity SCDs - Zofran prn for nausea - Protonix 40mgs daily for GI ppx Dw Dr Chavez, Dr. Ceron, and Dr. West (3) Atrial fibrillation Qualifiers: Atrial fibrillation type: chronic Qualified Code(s): I48.2 - Chronic atrial fibrillation (4) Hypertension Qualifiers: Hypertension type: essential hypertension Qualified Code(s): I10 - Essential (primary) hypertension
[2018-08-18] MEDS ORDERED: Acetaminophen 325 MG Tablet PO PRN (15:23)
[2018-08-18] MEDS ORDERED: guaiFENesin/Codeine Syrup 200 MG/20 MG 10 ML UDC PO PRN (20:41)
[2018-08-18] MEDS: Metoprolol Tartrate 100 MG Tablet PO SCH (21:58)
[2018-08-19 07:46] LABS: Baso % (Auto) 0.1 % (0.0-2.0); Hematocrit 45.7 % (39.0-51.0); Hemoglobin 15.5 gm/dL (13.0-17.0); Lymph # (Auto) 0.8 th/mm3 (1.0-4.8); Lymph % (Auto) 31.6 % (9.0-44.0); Mean Corpuscular HGB Conc 33.9 % (32.0-36.0); Mean Corpuscular Hemoglobin 31.6 pg (27.0-34.0); Mean Corpuscular Volume 93.4 fL (80.0-100.0); Mean Platelet Volume 6.8 fL (7.0-11.0); Mono # (Auto) 0.4 th/mm3 (0.0-0.9); Mono % (Auto) 13.1 % (0.0-8.0); Neut # (Auto) 1.5 th/mm3 (1.8-7.7); Neut % (Auto) 55.2 % (16.0-70.0); Platelet Count 201 th/mm3 (150-450); Red Blood Count 4.89 mil/mm3 (4.50-5.90); Red Cell Distribution Width 14.5 % (11.6-17.2); White Blood Count 2.7 th/mm3 (4.0-11.0)
[2018-08-19 08:02] LABS: Anion Gap 7 meq/L (5-15); Blood Urea Nitrogen 10 mg/dL (7-18); Carbon Dioxide 24.4 meq/L (21.0-32.0); Chloride 107 meq/L (98-107); Glomerular Filtration Rate Greater Than 89 mL/min (>89); Glucose,Random 127 mg/dL (74-106); Magnesium 1.8 mg/dL (1.5-2.5); Phosphorus 3.8 mg/dL (2.5-4.9); Potassium 3.8 meq/L (3.5-5.1); Sodium 138 meq/L (136-145)
[2018-08-19] MEDS: Metoprolol Tartrate 100 MG Tablet PO SCH ×2 (08:39→20:39)
[2018-08-19] MEDS: Isosorbide Mononitrate 60 MG ER 24HR Tablet (Imdur) PO SCH (08:39)
--- NOTE | 2018-08-19 09:57 | P.PNFP ---
Subjective Interval history: Patient seen and evaluated this morning with the medicine team. Patient looks a lot better on subjective impression. He states his feels a little better, he says she has had a breathing treatment 30 minutes ago and now denies shortness of breath, chest pain, headaches. He states his breathing has improved significantly, he still feels congested, improvement of his cough. He was able to get 4 hours of sleep last night. Discussed with patient course of treatment. Patient agrees and understands. No acute events overnight <Lyudmila Mcclure V - 08/19/18 09:57> Results - Labs Result diagrams: 08/20/18 07:24 08/20/18 07:24 <Kehinde Chavez - 08/20/18 08:21> Short CBC 08/20/18 Range/Units 07:24 WBC 5.1 (4.0-11.0) th/mm3 Hgb 14.3 (13.0-17.0) gm/dL Hct 42.6 (39.0-51.0) % Plt Count 191 (150-450) th/mm3 [facility] 08/20/18 07:24 Sodium 140 Potassium 3.5 Chloride 106 Carbon Dioxide 29.4 BUN 15 Creatinine 0.93 Calcium 8.6 <Kehinde Chavez - 08/20/18 08:21> Abnormal lab results 08/18/18 08/18/18 08/18/18 Range/Units 13:33 13:33 13:33 WBC 3.6 L (4.0-11.0) th/mm3 RBC 4.45 L (4.50-5.90) mil/mm3 MPV 6.6 L (7.0-11.0) fL [place] % (Auto) 15.7 H (0.0-8.0) % Neut # (Auto) 1.5 L (1.8-7.7) th/mm3 Lymph # (Auto) (1.0-4.8) th/mm3 Random Glucose 136 H (74-106) mg/dL Troponin I (0.02-0.05) ng/mL B-Natriuretic Peptide 106 H (0-100) pg/mL 08/18/18 08/19/18 08/19/18 Range/Units 21:34 07:22 07:22 WBC 2.7 L (4.0-11.0) th/mm3 RBC (4.50-5.90) mil/mm3 MPV 6.8 L (7.0-11.0) fL [place] % (Auto) 13.1 H (0.0-8.0) % Neut # (Auto) 1.5 L (1.8-7.7) th/mm3 Lymph # (Auto) 0.8 L (1.0-4.8) th/mm3 Random Glucose 127 H (74-106) mg/dL Troponin I Less than 0.02 L (0.02-0.05) ng/mL B-Natriuretic Peptide (0-100) pg/mL Short CBC 08/18/18 08/19/18 Range/Units 13:33 07:22 WBC 3.6 L 2.7 L (4.0-11.0) th/mm3 Hgb 14.4 15.5 (13.0-17.0) gm/dL Hct 42.5 45.7 (39.0-51.0) % Plt Count 189 201 (150-450) th/mm3 BMP 08/18/18 08/19/18 13:33 07:22 Sodium 137 138 Potassium 3.6 3.8 Chloride 104 107 Carbon Dioxide 27.4 24.4 BUN 10 10 Creatinine 0.91 0.91 Calcium 8.9 9.0 Cardiac Enzymes 08/18/18 08/18/18 Range/Units 13:33 21:34 Troponin I 0.02 Less than 0.02 L (0.02-0.05) ng/mL Liver Function 08/18/18 Range/Units 13:33 Total Bilirubin 0.8 (0.2-1.0) mg/dL AST 28 (15-37) U/L ALT 39 (12-78) U/L Alkaline Phosphatase 93 (45-117) U/L Albumin 3.7 (3.4-5.0) g/dL <Lyudmila Mcclure V - 08/19/18 09:57> - Imaging Impressions Chest X-Ray 08/18/18 13:09 CONCLUSION: 1. No acute abnormality or significant interval change. <Lyudmila Mcclure V - 08/19/18 09:57> Physical Exam Vital signs: Vital Signs 08/19/18 08:32 08/19/18 11:50 08/19/18 12:00 Temperature 98.8 F Pulse Rate 98 H 96 H Respiratory Rate 18 18 Blood Pressure 146/98 H 140/104 H Pulse Oximetry 96 96 08/19/18 12:18 08/19/18 16:00 08/19/18 16:39 Temperature 99.9 F H Pulse Rate 53 L 93 H 57 L Respiratory Rate 16 18 20 Blood Pressure 149/91 H Pulse Oximetry 97 08/19/18 20:00 08/19/18 20:27 08/20/18 00:00 Temperature 98.1 F 98.3 F Pulse Rate 79 72 93 H Respiratory Rate 18 17 16 Blood Pressure 127/88 130/87 Pulse Oximetry 98 97 97 08/20/18 00:45 08/20/18 04:00 08/20/18 04:26 Temperature 97.9 F Pulse Rate 95 H 88 90 Respiratory Rate 17 16 15 Blood Pressure 131/96 H Pulse Oximetry 95 08/20/18 07:32 Temperature Pulse Rate 97 H Respiratory Rate 20 Blood Pressure Pulse Oximetry 98 Intake & Output 08/19/18 08/20/18 08/20/18 18:59 06:59 18:59 Intake Total 100 / 100 Balance 100 / 100 Intake: IV 100 / 100 Levaquin 500 mg Premix Inj 500 100 / 100 mg In 100 ml @ 100 mls/hr IV. SIG Q24H [facility] Rx#:[id number] Other: # Voids 5 1 Date of Last Bowel Movement 08/18/18 08/18/18 <Kehinde Chavez - 08/20/18 08:21> Vital Signs 08/18/18 12:56 08/18/18 13:05 08/18/18 13:21 Temperature 97.7 F Pulse Rate 91 H 86 102 H Respiratory Rate 24 24 22 Blood Pressure 163/102 H 144/87 H Pulse Oximetry 93 L 96 96 08/18/18 14:58 08/18/18 16:16 08/18/18 18:03 Temperature Pulse Rate 101 H 101 H 116 H Respiratory Rate 22 22 18 Blood Pressure 180/103 H 140/96 H Pulse Oximetry 96 08/18/18 20:00 08/18/18 20:41 08/18/18 22:52 Temperature 98.4 F Pulse Rate 97 H 116 H Respiratory Rate 16 18 Blood Pressure 154/94 H Pulse Oximetry 99 95 08/18/18 23:27 08/19/18 00:00 08/19/18 03:43 Temperature 98.2 F Pulse Rate 76 90 96 H Respiratory Rate 18 16 16 Blood Pressure 139/98 H Pulse Oximetry 97 95 08/19/18 04:00 08/19/18 08:00 08/19/18 08:06 Temperature 97.9 F 97.3 F L Pulse Rate 99 H 98 H Respiratory Rate 16 18 Blood Pressure 139/108 H 149/106 H 135/97 H Pulse Oximetry 92 L 96 08/19/18 08:32 Temperature Pulse Rate 98 H Respiratory Rate 18 Blood Pressure Pulse Oximetry 96 Intake & Output 08/18/18 08/19/18 08/19/18 18:59 06:59 18:59 Intake Total 100 / 100 480 / 480 Balance 100 / 100 480 / 480 Weight 108.862 kg 108.862 kg Intake: IV 100 / 100 Levaquin 500 mg Premix Inj 500 100 / 100 mg In 100 ml @ 100 mls/hr IV. SIG ONCE ONE Rx#:[id number] Oral 480 / 480 Other: # Voids 2 Date of Last Bowel Movement 08/18/18 Weight On Admission 108.862 kg <Lyudmila Mcclure V - 08/19/18 09:57> Narrative: Patient is a 48-year-old AA male Constitutional: awake, alert, in NAD sitting straight up in bed Psychiatric: good judgement, normal mood and affect and active and alert. Head: normocephalic and atraumatic. Lungs: minimally increased respiratory effort. Expiratory wheezing improved but present in all lung mclaughlin. Good air movement. Cardiovascular: normal S1 and S2; no murmurs, rubs, or gallops; with regular rate and rhythm. Abdomen: + BS. No tenderness, guarding, or masses. Soft and non-distended. Musculoskeletal: normal movement of all extremities. No cyanosis or edema. Neurologic: Cranial Nerves: grossly intact. Skin: no rash, lesions, ulcer, or jaundice. <Lyudmila Mcclure V - 08/19/18 09:57> Assessment and Plan - Assessment (1) Acute exacerbation of chronic obstructive pulmonary disease (COPD) Code(s): J44.1 - Chronic obstructive pulmonary disease with (acute) exacerbation Status: Acute (2) Cough Code(s): R05 - Cough Status: Acute (3) Atrial fibrillation Code(s): I48.91 - Unspecified atrial fibrillation Status: Chronic (4) Hypertension Code(s): I10 - Essential (primary) hypertension Status: Chronic (5) Tobacco abuse Code(s): Z72.0 - Tobacco use Status: Chronic (6) Hx of CABG Code(s): Z95.1 - Presence of aortocoronary bypass graft Status: Chronic (7) Hyperlipidemia Code(s): E78.5 - Hyperlipidemia, unspecified Status: Chronic (8) Nutrition, metabolism, and development symptoms Code(s): R63.8 - Other symptoms and signs concerning food and fluid intake Status: Acute <Kehinde Chavez - 08/20/18 08:21> (1) Acute exacerbation of chronic obstructive pulmonary disease (COPD) Code(s): J44.1 - Chronic obstructive pulmonary disease with (acute) exacerbation Status: Acute (2) Cough Code(s): R05 - Cough Status: Acute (3) Atrial fibrillation Code(s): I48.91 - Unspecified atrial fibrillation Status: Chronic (4) Hypertension Code(s): I10 - Essential (primary) hypertension Status: Chronic (5) Tobacco abuse Code(s): Z72.0 - Tobacco use Status: Chronic (6) Hx of CABG Code(s): Z95.1 - Presence of aortocoronary bypass graft Status: Chronic (7) Hyperlipidemia Code(s): E78.5 - Hyperlipidemia, unspecified Status: Chronic (8) Nutrition, metabolism, and development symptoms Code(s): R63.8 - Other symptoms and signs concerning food and fluid intake Status: Acute <Lyudmila Mcclure V - 08/19/18 09:51> - Assessment and Plan 48-year-old male admitted for severe exacerbation of COPD w/ respiratory distress. Improved this morning, not using accessory muscle groups. Able to carry out full sentences. Plan: COPD exacerbation Received IV steroids in ED and Levaquin 500mg IV Continue Levaquin 500 mg IV q24 40mg Prednisone PO q day Continue breathing treatments q4hrs Albuterol q1hr PRN for shortness of breath Robitussin liquid w/ codeine for cough Atrial fibrillation Continue home Metoprolol 100mg po BID Hx of CABG Continue home aspirin 81mg po daily Continue Eliquis 5mg po hs Continue Plavix 75mg PO daily Continue isosorbide mononitrate 120mf ER po q day Tobacco abuse Nicotine patches Hyperlipemia Continue atorvastatin 80mg PO hs FEN: - PO hydration - Monitor replace electrolytes as needed - Cardiac diet PPX: - Bilateral lower extremity SCDs - Zofran prn for nausea - Protonix 40mgs daily for GI ppx Dw Dr Chavez, Dr. Ceron, and Dr. West Hospital course: 48-year-old male presented with severe exacerbation of COPD. Patient received breathing treatments antibiotics and IV steroids on ED without resolution of breathing symptoms. Patient will be admitted for observation and management. Pt significantly improved after 24 hrs of IV antibiotic use and IV steroids. Pt still remains in need of hospitalization. Anticipate DC in 1-2 days <Lyudmila Mcclure V - 08/19/18 09:57> - Attending Attestation The exam, history, and the medical decision-making described in the above note were completed with the assistance of the resident physician. I reviewed and agree with the findings presented. I attest that I had a [id number] encounter with the patient on the same day, and personally performed and documented my assessment and findings in the medical record. <Kehinde Chavez - 08/20/18 08:21> <Lyudmila Mcclure V - Last Filed: 08/19/18 09:51> (3) Atrial fibrillation Qualifiers: Atrial fibrillation type: chronic Qualified Code(s): I48.2 - Chronic atrial fibrillation (4) Hypertension Qualifiers: Hypertension type: essential hypertension Qualified Code(s): I10 - Essential (primary) hypertension <Kehinde Chavez - Last Filed: 08/20/18 08:21> (3) Atrial fibrillation Qualifiers: Atrial fibrillation type: chronic Qualified Code(s): I48.2 - Chronic atrial fibrillation (4) Hypertension Qualifiers: Hypertension type: essential hypertension Qualified Code(s): I10 - Essential (primary) hypertension <Lyudmila Mcclure V - Last Filed: 08/19/18 09:51> (3) Atrial fibrillation Qualifiers: Atrial fibrillation type: chronic Qualified Code(s): I48.2 - Chronic atrial fibrillation (4) Hypertension Qualifiers: Hypertension type: essential hypertension Qualified Code(s): I10 - Essential (primary) hypertension <Kehinde Chavez - Last Filed: 08/20/18 08:21> (3) Atrial fibrillation Qualifiers: Atrial fibrillation type: chronic Qualified Code(s): I48.2 - Chronic atrial fibrillation (4) Hypertension Qualifiers: Hypertension type: essential hypertension Qualified Code(s): I10 - Essential (primary) hypertension
[2018-08-19] MEDS: Tiotropium Bromide 18 MCG/ACT Inhaler INH SCH (10:23)
[2018-08-19] MEDS: predniSONE 20 MG Tablet PO SCH (11:56)
[2018-08-19] MEDS: Levofloxacin 500 mg Premix Inj 500 MG/100 ML PIGGYBACK IV.SIG SCH (11:56)
[2018-08-19] MEDS ORDERED: hydrALAZINE 10 MG Tablet PO PRN (12:02)
--- NOTE | 2018-08-19 16:36 | ECG ---
Date Performed: 08/18/2018 Time Performed: 13:24:26 PTAGE: 48 years EKG: ATRIAL FIBRILLATION WITH ABERRANT CONDUCTION OR VENTRICULAR PREMATURE COMPLEXES INFERIOR MY OCARDIAL INFARCTION Late R wave transition. ABNORMAL ECG PREVIOUS TRACING : 03/26/2018 08.35 DOCTOR: Shaggy Mayer Interpretating Date/Time 08/19/2018 16:34:48
[2018-08-20 07:48] LABS: Hematocrit 42.6 % (39.0-51.0); Hemoglobin 14.3 gm/dL (13.0-17.0); Mean Corpuscular HGB Conc 33.7 % (32.0-36.0); Mean Corpuscular Hemoglobin 31.6 pg (27.0-34.0); Mean Platelet Volume 7.1 fL (7.0-11.0); Platelet Count 191 th/mm3 (150-450); Red Blood Count 4.53 mil/mm3 (4.50-5.90); Red Cell Distribution Width 14.5 % (11.6-17.2); White Blood Count 5.1 th/mm3 (4.0-11.0)
[2018-08-20 08:06] LABS: Anion Gap 5 meq/L (5-15); Blood Urea Nitrogen 15 mg/dL (7-18); Calcium 8.6 mg/dL (8.5-10.1); Carbon Dioxide 29.4 meq/L (21.0-32.0); Chloride 106 meq/L (98-107); Glomerular Filtration Rate Greater Than 89 mL/min (>89); Glucose,Random 91 mg/dL (74-106); Potassium 3.5 meq/L (3.5-5.1); Sodium 140 meq/L (136-145)
[2018-08-20] MEDS: predniSONE 20 MG Tablet PO SCH (08:45)
[2018-08-20] MEDS: Metoprolol Tartrate 100 MG Tablet PO SCH ×2 (08:46→21:11)
[2018-08-20] MEDS: Isosorbide Mononitrate 60 MG ER 24HR Tablet (Imdur) PO SCH (08:46)
[2018-08-20] MEDS: Tiotropium Bromide 18 MCG/ACT Inhaler INH SCH (08:47)
--- NOTE | 2018-08-20 11:00 | P.PNFP ---
Subjective Interval history: Patient seen and evaluated this morning. Patient states he is feeling better however he is still short of breath when trying to ambulate, still has cough, and is still wheezing. Patient reports not being back to baseline. He denies the use of oxygen at home, however has required some oxygen supplementation while inpatient. Patient is eating and drinking okay, was able to sleep 4 hours last night. He is continuing to do his breathing treatments and encouraged to do incentive spirometry every hour. Patient plan was discussed, he agrees testing and external will overall benefit him in the long-term. Discussed the side effects of quitting smoking including increased mucus production, increased cough, and increased risks of infections during the first few months. Patient denies any other complaints, he denies headaches, chest pain, he endorses chronic sciatica pain. Results - Labs Result diagrams: 08/20/18 07:24 08/20/18 07:24 Short CBC 08/20/18 Range/Units 07:24 WBC 5.1 (4.0-11.0) th/mm3 Hgb 14.3 (13.0-17.0) gm/dL Hct 42.6 (39.0-51.0) % Plt Count 191 (150-450) th/mm3 BMP 08/20/18 07:24 Sodium 140 Potassium 3.5 Chloride 106 Carbon Dioxide 29.4 BUN 15 Creatinine 0.93 Calcium 8.6 Physical Exam Vital signs: Vital Signs 08/19/18 11:50 08/19/18 12:00 08/19/18 12:18 Temperature 98.8 F Pulse Rate 96 H 53 L Respiratory Rate 18 16 Blood Pressure 146/98 H 140/104 H Pulse Oximetry 96 08/19/18 16:00 08/19/18 16:39 08/19/18 20:00 Temperature 99.9 F H 98.1 F Pulse Rate 93 H 57 L 79 Respiratory Rate 18 20 18 Blood Pressure 149/91 H 127/88 Pulse Oximetry 97 98 08/19/18 20:27 08/20/18 00:00 08/20/18 00:45 Temperature 98.3 F Pulse Rate 72 93 H 95 H Respiratory Rate 17 16 17 Blood Pressure 130/87 Pulse Oximetry 97 97 08/20/18 04:00 08/20/18 04:26 08/20/18 07:32 Temperature 97.9 F Pulse Rate 88 90 97 H Respiratory Rate 16 15 20 Blood Pressure 131/96 H Pulse Oximetry 95 98 08/20/18 08:00 08/20/18 08:53 Temperature 97.7 F Pulse Rate 111 H Respiratory Rate 16 16 Blood Pressure 135/99 H Pulse Oximetry 95 Intake & Output 08/19/18 08/20/18 08/20/18 18:59 06:59 18:59 Intake Total 100 / 100 Balance 100 / 100 Intake: IV 100 / 100 Levaquin 500 mg Premix Inj 500 100 / 100 mg In 100 ml @ 100 mls/hr IV. SIG Q24H [facility] Rx#:[id number] Other: # Voids 5 1 Date of Last Bowel Movement 08/18/18 08/18/18 08/18/18 Narrative: Patient is a 48-year-old AA male Constitutional: awake, alert, in NAD sitting straight up in bed Psychiatric: good judgement, normal mood and affect and active and alert. Head: normocephalic and atraumatic. Lungs: Normal respiratory effort, improved. Expiratory wheezing and mild rhonchi present in all lung mcl[place]. Good air movement. Cardiovascular: normal S1 and S2; no murmurs, rubs, or gallops; with regular rate and rhythm. Abdomen: + BS. No tenderness, guarding, or masses. Soft and non-distended. Musculoskeletal: normal movement of all extremities. No cyanosis or edema. Neurologic: Cranial Nerves: grossly intact. Skin: no rash, lesions, ulcer, or jaundice. Assessment and Plan - Assessment (1) Acute exacerbation of chronic obstructive pulmonary disease (COPD) Code(s): J44.1 - Chronic obstructive pulmonary disease with (acute) exacerbation Status: Acute (2) Cough Code(s): R05 - Cough Status: Acute (3) Atrial fibrillation Code(s): I48.91 - Unspecified atrial fibrillation Status: Chronic (4) Hypertension Code(s): I10 - Essential (primary) hypertension Status: Chronic (5) Tobacco abuse Code(s): Z72.0 - Tobacco use Status: Chronic (6) Hx of CABG Code(s): Z95.1 - Presence of aortocoronary bypass graft Status: Chronic (7) Hyperlipidemia Code(s): E78.5 - Hyperlipidemia, unspecified Status: Chronic (8) Nutrition, metabolism, and development symptoms Code(s): R63.8 - Other symptoms and signs concerning food and fluid intake Status: Acute - Assessment and Plan 48-year-old male admitted for severe exacerbation of COPD w/ respiratory distress. Plan: COPD exacerbation Continue Levaquin 500 mg IV q24 Prednisone 40mg PO q day Continue breathing treatments q4hrs Albuterol q1hr PRN for shortness of breath Robitussin liquid w/ codeine for cough PRN Atrial fibrillation Continue home Metoprolol 100mg po BID Hx of CABG Continue home aspirin 81mg po daily Continue Eliquis 5mg po hs Continue Plavix 75mg PO daily Continue isosorbide mononitrate 120mf ER po q day Tobacco abuse Nicotine patches Hyperlipemia Continue atorvastatin 80mg PO hs FEN: - PO hydration - Monitor replace electrolytes as needed - Cardiac diet PPX: - Bilateral lower extremity SCDs - Zofran prn for nausea - Protonix 40mgs daily for GI ppx Anticipate DC tomorrow, pt will need home health PT. CM consulted. Dw Dr Chavez, and and Dr. West Hospital course: 48-year-old male presented with severe exacerbation of COPD. Patient received breathing treatments antibiotics and IV steroids on ED without resolution of breathing symptoms. Patient will be admitted for observation and management. Pt significantly improved after 24 hrs of IV antibiotic use and IV steroids. Day two of hospitalization: pt improved but continues to be short of breath, especially with walking/ activity. Improved air movement but continuous expiratory wheezing and rhonchi in all lung mcl[place]. Pt still remains in need of hospitalization for treatment. Anticipate DC in 1-2 days (3) Atrial fibrillation Qualifiers: Atrial fibrillation type: chronic Qualified Code(s): I48.2 - Chronic atrial fibrillation (4) Hypertension Qualifiers: Hypertension type: essential hypertension Qualified Code(s): I10 - Essential (primary) hypertension
--- NOTE | 2018-08-20 11:02 | P.DCO ---
- Physical Therapy Order: Evaluate and treat, Improve ambulation, Strength and gait training - Case Management Consult Case Management Consult-Home Health: Yes - Certification I have seen patient Price Hoang on 08/20/18. My clinical findings support the need for the requested home health care services because: Limited mobility due to disease progression, Patient has SOB, Deconditioned with increased weakness I certify that my clinical findings support that this patient is homebound because: Hx COPD - exertion dyspnea/weakness, Unsteady gait/balance
[2018-08-20] MEDS: Levofloxacin 500 mg Premix Inj 500 MG/100 ML PIGGYBACK IV.SIG SCH (11:27)
[2018-08-21] MEDS: Isosorbide Mononitrate 60 MG ER 24HR Tablet (Imdur) PO SCH (06:25)
[2018-08-21 07:27] LABS: Hematocrit 44.8 % (39.0-51.0); Hemoglobin 14.7 gm/dL (13.0-17.0); Mean Corpuscular HGB Conc 32.8 % (32.0-36.0); Mean Corpuscular Hemoglobin 31.5 pg (27.0-34.0); Mean Corpuscular Volume 95.9 fL (80.0-100.0); Mean Platelet Volume 7.3 fL (7.0-11.0); Platelet Count 188 th/mm3 (150-450); Red Blood Count 4.67 mil/mm3 (4.50-5.90); Red Cell Distribution Width 14.5 % (11.6-17.2); White Blood Count 5.5 th/mm3 (4.0-11.0)
[2018-08-21 07:55] LABS: Calcium 8.6 mg/dL (8.5-10.1); Potassium 3.8 meq/L (3.5-5.1)
[2018-08-21] MEDS: Metoprolol Tartrate 100 MG Tablet PO SCH ×2 (10:21→20:35)
[2018-08-21] MEDS: predniSONE 20 MG Tablet PO SCH (10:22)
[2018-08-21] MEDS: Tiotropium Bromide 18 MCG/ACT Inhaler INH SCH (10:23)
[2018-08-21] MEDS ORDERED: guaiFENesin 600 MG ER Tablet PO ONE (12:15)
[2018-08-21] MEDS: Levofloxacin 500 mg Premix Inj 500 MG/100 ML PIGGYBACK IV.SIG SCH (12:43)
--- NOTE | 2018-08-21 14:31 | P.PNFP ---
Subjective Interval history: Patient seen and examined it at this morning. She reports improvement in shortness of breath however he is not back to baseline. He still had issues walking down the [place] yesterday and becoming severe shortness of breath. Cough is continuous with phlegm production. Color of phlegm has not changed from green to yellow. Patient is being receiving breathing treatment every 4 hours with short-term improvement of symptoms. Patient denies chest pain, headaches, nausea or vomiting. He has a good appetite, is drinking and eating okay. Results - Labs Result diagrams: 08/21/18 05:35 08/21/18 05:45 Abnormal lab results 08/21/18 Range/Units 05:45 BUN 22 H (7-18) mg/dL Estimated GFR 88 L (>89) mL/min Random Glucose 66 L (74-106) mg/dL Short CBC 08/21/18 Range/Units 05:35 WBC 5.5 (4.0-11.0) th/mm3 Hgb 14.7 (13.0-17.0) gm/dL Hct 44.8 (39.0-51.0) % Plt Count 188 (150-450) th/mm3 [facility] 08/21/18 05:45 Sodium 141 Potassium 3.8 Chloride 106 Carbon Dioxide 29.0 BUN 22 H Creatinine 1.08 Calcium 8.6 Physical Exam Vital signs: Vital Signs 08/20/18 16:21 08/20/18 18:25 08/20/18 19:00 Temperature 98.1 F Pulse Rate 109 H 95 H Respiratory Rate 18 16 18 Blood Pressure 120/84 Pulse Oximetry 97 97 08/20/18 19:43 08/20/18 20:00 08/20/18 21:50 Temperature 98.3 F Pulse Rate 65 116 H Respiratory Rate 18 16 18 Blood Pressure 127/88 Pulse Oximetry 95 08/20/18 23:18 08/20/18 23:43 08/21/18 03:20 Temperature 98.4 F Pulse Rate 93 H 102 H 88 Respiratory Rate 18 16 20 Blood Pressure 124/99 H Pulse Oximetry 98 96 08/21/18 04:00 08/21/18 07:21 08/21/18 08:44 Temperature 98.0 F 97.6 F Pulse Rate 95 H 95 H 92 H Respiratory Rate 16 20 18 Blood Pressure 137/89 120/87 Pulse Oximetry 97 94 L 08/21/18 11:42 08/21/18 12:43 Temperature 98.0 F Pulse Rate 94 H 94 H Respiratory Rate 18 18 Blood Pressure 138/102 H Pulse Oximetry 96 Intake & Output 08/20/18 08/21/18 08/21/18 18:59 06:59 18:59 Intake Total 580 / 580 Balance 580 / 580 Intake: IV 100 / 100 Levaquin 500 mg Premix Inj 500 100 / 100 mg In 100 ml @ 100 mls/hr IV. SIG Q24H [facility] Rx#:[id number] Oral 480 / 480 Other: Date of Last Bowel Movement 08/18/18 Narrative: Patient is a 48-year-old AA male Constitutional: awake, alert, in NAD sitting straight up in bed Psychiatric: good judgement, normal mood and affect and active and alert. Head: normocephalic and atraumatic. Lungs: Normal respiratory effort. No dyspnea, no tachypnea. Expiratory wheezing still present, together with rhonchi in all lung mclaughlin. Improved air movement. Cardiovascular: normal S1 and S2; no murmurs, rubs, or gallops; with regular rate and rhythm. Abdomen: + BS. No tenderness, guarding, or masses. Soft and non-distended. Musculoskeletal: normal movement of all extremities. No cyanosis or edema. Neurologic: Cranial Nerves: grossly intact. Skin: no rash, lesions, ulcer, or jaundice. Assessment and Plan - Assessment (1) Acute exacerbation of chronic obstructive pulmonary disease (COPD) Code(s): J44.1 - Chronic obstructive pulmonary disease with (acute) exacerbation Status: Acute (2) Cough Code(s): R05 - Cough Status: Acute (3) Atrial fibrillation Code(s): I48.91 - Unspecified atrial fibrillation Status: Chronic (4) Hypertension Code(s): I10 - Essential (primary) hypertension Status: Chronic (5) Tobacco abuse Code(s): Z72.0 - Tobacco use Status: Chronic (6) Hx of CABG Code(s): Z95.1 - Presence of aortocoronary bypass graft Status: Chronic (7) Hyperlipidemia Code(s): E78.5 - Hyperlipidemia, unspecified Status: Chronic (8) Nutrition, metabolism, and development symptoms Code(s): R63.8 - Other symptoms and signs concerning food and fluid intake Status: Acute - Assessment and Plan 48-year-old male admitted for severe exacerbation of COPD w/ respiratory distress. Plan: COPD exacerbation Continue Levaquin 500 mg IV q24 Prednisone 40mg PO q day Continue breathing treatments q4hrs Albuterol q1hr PRN for shortness of breath Robitussin liquid w/ codeine for cough scheduled at night Robitussin once this morning Continue IS Added ac[place] treatment Atrial fibrillation Continue home Metoprolol 100mg po BID Hx of CABG Continue home aspirin 81mg po daily Continue Eliquis 5mg po hs Continue Plavix 75mg PO daily Continue isosorbide mononitrate 120mf ER po q day Tobacco abuse Nicotine patches Hyperlipemia Continue atorvastatin 80mg PO hs FEN: - PO hydration - Monitor replace electrolytes as needed - Cardiac diet PPX: - Bilateral lower extremity SCDs - Zofran prn for nausea - Protonix 40mgs daily for GI ppx Dw Dr Chavez, and and Dr. West Hospital course: 48-year-old male presented with severe exacerbation of COPD. Patient received breathing treatments antibiotics and IV steroids on ED without resolution of breathing symptoms. Patient will be admitted for observation and management. Pt significantly improved after 24 hrs of IV antibiotic use and IV steroids. Day 2 of hospitalization: pt improved but continues to be short of breath, especially with walking/ activity. Improved air movement but continuous expiratory wheezing and rhonchi in all lung mcl[place]. Pt still remains in need of hospitalization for treatment. Day 3: improved air movement, but significant rhonchi and wheezing in all lung mclaughlin, pt remains SOB with minimal activity. Added acapella treatment as well as expectorant to help loosen up mucus. Anticipate DC in 1-2 days. Pt does not qualify for home health PT due to self pay status. (3) Atrial fibrillation Qualifiers: Atrial fibrillation type: chronic Qualified Code(s): I48.2 - Chronic atrial fibrillation (4) Hypertension Qualifiers: Hypertension type: essential hypertension Qualified Code(s): I10 - Essential (primary) hypertension
[2018-08-21] MEDS ORDERED: guaiFENesin/Codeine Syrup 200 MG/20 MG 10 ML UDC PO ONE (20:00)
[2018-08-22 05:17] VITALS: TEMP 97.9
[2018-08-22] MEDS: Isosorbide Mononitrate 60 MG ER 24HR Tablet (Imdur) PO SCH (06:32)
[2018-08-22 07:45] VITALS: BP 130/93; PULSE 81; O2SAT 97
[2018-08-22 08:10] VITALS: RESP 20
[2018-08-22] MEDS: predniSONE 20 MG Tablet PO SCH (09:19)
[2018-08-22] MEDS: Metoprolol Tartrate 100 MG Tablet PO SCH (09:19)
[2018-08-22] MEDS: Tiotropium Bromide 18 MCG/ACT Inhaler INH SCH (09:22)
[2018-08-22 10:00] LABS: Hemoglobin 13.8 gm/dL (13.0-17.0); Mean Corpuscular HGB Conc 33.6 % (32.0-36.0); Mean Corpuscular Volume 95.3 fL (80.0-100.0); Mean Platelet Volume 7.3 fL (7.0-11.0); Platelet Count 179 th/mm3 (150-450); Red Blood Count 4.31 mil/mm3 (4.50-5.90); Red Cell Distribution Width 14.4 % (11.6-17.2); White Blood Count 6.2 th/mm3 (4.0-11.0)
--- NOTE | 2018-08-22 10:08 | P.PNFP ---
Subjective Interval history: Patient seen and evaluated this morning. He states he is almost back to his baseline, he would like to go home. He has decreased cough, was able to have a good night sleep. He has mild shortness of breath. Discuss the patient needs to make an appointment with PCP within the next 10 days to 2 weeks. Patient voiced understanding. Explained medications for outpatient care. Patient denies any chest pain, headaches, nausea, vomiting. Ambulating well, eating and hydrating okay. Results - Labs Result diagrams: 08/21/18 05:35 08/21/18 05:45 Physical Exam Vital signs: Vital Signs 08/21/18 11:42 08/21/18 12:43 08/21/18 15:39 Temperature 98.0 F 97.9 F Pulse Rate 94 H 94 H 99 H Respiratory Rate 18 18 19 Blood Pressure 138/102 H 132/81 Pulse Oximetry 96 93 L 08/21/18 15:52 08/21/18 19:38 08/21/18 20:00 Temperature 98.1 F Pulse Rate 102 H 105 H 89 Respiratory Rate 18 18 18 Blood Pressure 126/91 H Pulse Oximetry 94 L 08/22/18 00:00 08/22/18 00:22 08/22/18 03:18 Temperature 98.2 F Pulse Rate 99 H 87 74 Respiratory Rate 17 16 15 Blood Pressure 129/96 H Pulse Oximetry 96 08/22/18 04:00 08/22/18 07:42 08/22/18 08:09 Temperature 97.9 F 97.9 F Pulse Rate 90 81 81 Respiratory Rate 16 16 20 Blood Pressure 134/101 H 130/93 H Pulse Oximetry 95 97 Intake & Output 08/21/18 08/22/18 08/22/18 18:59 06:59 18:59 Intake Total 100 / 100 720 / 720 Balance 100 / 100 720 / 720 Intake: IV 100 / 100 Levaquin 500 mg Premix Inj 500 100 / 100 mg In 100 ml @ 100 mls/hr IV. SIG Q24H GLORIA Rx#:[id number] Oral 720 / 720 Other: # Voids 3 Date of Last Bowel Movement 08/18/18 08/18/18 # Bowel Movements 1 Narrative: Patient is a 48-year-old AA male Constitutional: awake, alert, in NAD sitting straight up in bed Psychiatric: good judgement, normal mood and affect and active and alert. Head: normocephalic and atraumatic. Lungs: Normal respiratory effort. No dyspnea, no tachypnea, no cough. Mild expiratory wheezing still present, minimal rhonchi. Improved air movement. Cardiovascular: normal S1 and S2; no murmurs, rubs, or gallops; with regular rate and rhythm. Abdomen: + BS. No tenderness, guarding, or masses. Soft and non-distended. Musculoskeletal: normal movement of all extremities. No cyanosis or edema. Neurologic: Cranial Nerves: grossly intact. Skin: no rash, lesions, ulcer, or jaundice. Assessment and Plan - Assessment (1) Acute exacerbation of chronic obstructive pulmonary disease (COPD) Code(s): J44.1 - Chronic obstructive pulmonary disease with (acute) exacerbation Status: Acute (2) Cough Code(s): R05 - Cough Status: Acute (3) Atrial fibrillation Code(s): I48.91 - Unspecified atrial fibrillation Status: Chronic (4) Hypertension Code(s): I10 - Essential (primary) hypertension Status: Chronic (5) Tobacco abuse Code(s): Z72.0 - Tobacco use Status: Chronic (6) Hx of CABG Code(s): Z95.1 - Presence of aortocoronary bypass graft Status: Chronic (7) Hyperlipidemia Code(s): E78.5 - Hyperlipidemia, unspecified Status: Chronic (8) Nutrition, metabolism, and development symptoms Code(s): R63.8 - Other symptoms and signs concerning food and fluid intake Status: Acute - Assessment and Plan 48-year-old male admitted for severe exacerbation of COPD w/ respiratory distress. Plan: COPD exacerbation Pt discharged on 750mg Levaquin PO for two days Prednisone 40mg PO q day for two days Continue breathing treatments q4hrs PRN at home Robitussin PRN for cough Continue IS at home Atrial fibrillation Continue home Metoprolol 100mg po BID Hx of CABG Continue home aspirin 81mg po daily Continue Eliquis 5mg po hs Continue Plavix 75mg PO daily Continue isosorbide mononitrate 120mf ER po q day Tobacco abuse Nicotine patches- prescription sent Referral to contact [place] QUIT line placed on DC papers Hyperlipemia Continue atorvastatin 80mg PO hs FEN: - PO hydration - Monitor replace electrolytes as needed - Cardiac diet PPX: - Bilateral lower extremity SCDs - Zofran prn for nausea - Protonix 40mgs daily for GI ppx Dw Dr Chavez, and and Dr. West Hospital course: 48-year-old male presented with severe exacerbation of COPD. Patient received breathing treatments antibiotics and IV steroids on ED without resolution of breathing symptoms. Patient will be admitted for observation and management. Pt significantly improved after 24 hrs of IV antibiotic use and IV steroids. Day 2 of hospitalization: pt improved but continues to be short of breath, especially with walking/ activity. Improved air movement but continuous expiratory wheezing and rhonchi in all lung mclaughlin. Pt still remains in need of hospitalization for treatment. Day 3: improved air movement, but significant rhonchi and wheezing in all lung mclaughlin, pt remains SOB with minimal activity. Added acapella treatment as well as expectorant to help loosen up mucus. Day 4: significantly improved respiratory status from admission. Pt will continue treatment as outpatient. Pt will be DC today. (3) Atrial fibrillation Qualifiers: Atrial fibrillation type: chronic Qualified Code(s): I48.2 - Chronic atrial fibrillation (4) Hypertension Qualifiers: Hypertension type: essential hypertension Qualified Code(s): I10 - Essential (primary) hypertension
--- NOTE | 2018-08-26 11:11 | P.DS ---
Date of admission: 08/18/18 15:16 Primary care physician: UNKNOWN Brief History from admission: 48-year-old male with history of CAD, COPD, hyperlipidemia, hypertension and history of myocardial infarction presenting to the emergency department for increased shortness of breath. Patient states that last he started having a runny nose, chest congestion, cough, and worsening SOB. Usually he can walk about a block and walk around the house but the last couple of days he has been unable to do so. Patient has as a nebulizer at home and an albuterol inhaler that he has been using every morning and night. Patient has also been using Mucinex, brought up cough but not relieve. No fevers, chest pain, no headaches. Pt complains of cough, bringing green sputum up. Wheezing. No vomiting. This morning got tired of breathing hard which made him came in, he also complains of inability to sleep the past two nights. PMH: COPD, Hx of HI, Afib, HTN, pre-diabetes, elevated cholesterol. 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 Denies drug use. Vaccines: did not get flu shot. PCP: does not remember name DS: Diagnosis - Discharge Diagnosis (1) Acute exacerbation of chronic obstructive pulmonary disease (COPD) Status: Acute (2) Cough Status: Acute (3) Atrial fibrillation Status: Chronic (4) Hypertension Status: Chronic (5) Tobacco abuse Status: Chronic (6) Hx of CABG Status: Chronic (7) Hyperlipidemia Status: Chronic (8) Nutrition, metabolism, and development symptoms Status: Acute DS: Medications - Discharge Medications Prescriptions: ibuprofen 800 mg PO Q6H PRN #30 tab PRN Reason: Acute Pain ipratropium-albuterol 1 amp NEB Q4HR NEB #30 amp levofloxacin [Levaquin] 750 mg PO DAILY #2 tab nicotine 1 patch TRANSDERMAL DAILY #30 ea [id number] [Mucinex Fast-Max Congest-Cough] 2 tab PO Q4H PRN # 20 tab PRN Reason: Cough prednisone [Deltasone] See Taper PO DAILY 7 Days #14 tab DS: Summary Hospital Course: 48-year-old male presented with severe exacerbation of COPD. Patient received breathing treatments, antibiotics, and IV steroids on ED without resolution of breathing symptoms. Patient was admitted for observation and management. Pt significantly improved after 24 hrs of IV antibiotic use and IV steroids. Day 2 of hospitalization: pt improved but continues to be short of breath, especially with walking/ activity. Improved air movement but continuous expiratory wheezing and rhonchi in all lung mclaughlin. Pt still remains in need of hospitalization for treatment. Day 3: improved air movement, but significant rhonchi and wheezing in all lung mclaughlin, pt remains SOB with minimal activity. Added acapella treatment as well as expectorant to help loosen up mucus. Day 4: significantly improved respiratory status from admission. Pt will continue treatment as outpatient. - Time Spent with Patient Total time spent providing and/or coordinating discharge services: Less than 30 minutes - Quality: VTE Deep Vein Thrombosis/Pulmonary Embolism Present on Admission: No Exam Narrative: Patient is a 48-year-old AA male Constitutional: awake, alert, in NAD sitting straight up in bed Psychiatric: good judgement, normal mood and affect and active and alert. Head: normocephalic and atraumatic. Lungs: Normal respiratory effort. No dyspnea, no tachypnea, no cough. Mild expiratory wheezing still present, minimal rhonchi. Improved air movement. Cardiovascular: normal S1 and S2; no murmurs, rubs, or gallops; with regular rate and rhythm. Abdomen: + BS. No tenderness, guarding, or masses. Soft and non-distended. Musculoskeletal: normal movement of all extremities. No cyanosis or edema. Neurologic: Cranial Nerves: grossly intact. Skin: no rash, lesions, ulcer, or jaundice. Results Procedures completed during hospitalization: None - Impressions ITS Impressions Chest X-Ray 08/18/18 13:09 CONCLUSION: 1. No acute abnormality or significant interval change. Discharge Plan - Discharge Disposition Patient Disposition: 01 Discharge Home - Discharge Condition Condition: Stable - Discharge Order Discharge Orders: Discharge Order (Routine); Ordered 08/22/18 Ordered By: Lyudmila Sands R1 - Physicians Team Primary Care Provider: UNKNOWN, Attending Provider: Kehinde Chavez
== END 2018-08-22 12:59 | disposition home or self-care (01) ==
LOC: NEDA 12:50 → NEPC 12:50 → NEDA 18:10 → NEPHCDU 18:18
PROVIDERS: ADMIT Family Medicine; ATTEND Family Medicine